=== PATIENT | female | born 1960 | race Caucasian/White ===

== ENCOUNTER 2023-02-24 07:00 | Emergency (ER) | payer OTHER, SELFPAY ==
[2023-02-24] VITALS (7 sets, daily range): BP systolic 128–148; BP diastolic 69–83; PULSE 75–93; RESP 16–22; TEMP 36.2; O2SAT 97–100
--- NOTE | ~2023-02-24 | CT_ITS ---
EXAMINATION: CTA chest PE protocol DATE: 02/24/2023 08:25 INDICATION: Right-sided chest pain TECHNIQUE: Computed tomography (CT) pulmonary angiogram of the chest was performed with 100 mL Omnipa que-350 intravenous contrast. Additional 3D reconstructions utilizing coronal maximum intensity proje ction (MIP) were performed. Automated exposure control and iterative reconstruction technique were em ployed. The dose-length product was 388.95 mGy-cm. COMPARISON: None FINDINGS: Excellent contrast opacification of the pulmonary arteries mild streak and respiratory artifact which does not significantly limit evaluation. No pulmonary embolism. Linear band of discoid atelectasis/s carring at the right apex. No pneumonia, pulmonary edema, pleural effusion or pneumothorax. Heart siz e is normal. Small amount of atherosclerotic coronary artery calcification along the left anterior de scending coronary artery. No pericardial effusion. Thoracic aorta is normal in caliber with no dissec tion. No pathologically enlarged thoracic lymphadenopathy. There are multiple contrast opacified yola ateral vessels extending from the right upper arm into the anterior and posterior chest Wo bypass in the presumably occluded left subclavian artery which reconstitutes at the level of the left brachioce phalic vein. Small sliding-type hiatal hernia. Cholecystectomy clips the gallbladder fossa. Bones are unremarkable. IMPRESSION: 1. No pulmonary embolism or other acute cardiopulmonary disease. 2. Small sliding-type hiatal hernia. 3. 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 IMPRESSION: 1. No pulmonary embolism or other acute cardiopulmonary disease. 2. Small sliding-type hiatal hernia. 3. 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
--- NOTE | ~2023-02-24 | XR_ITS ---
Portable chest x-ray Comparison: 07/16/2014 Clinical History: Chest pain Findings: Lungs are clear, without focal consolidation or pleural effusion. Cardiomediastinal silho uette is stable. Scattered surgical clips overlie the chest. Bones and soft tissues are unremarkable. Impression: Clear lungs. Reviewed, dictated and finalized at location . Impression: Clear lungs.
--- NOTE | 2023-02-24 07:37 | ECG_ITS ---
Measurements Intervals [place] Rate: 93 P: 19 ID: 122 QRS: 21 QRSD: 96 T: 17 QT: 341 QTc: 425 Interpretive Statements SINUS RHYTHM BASELINE ARTIFACT NONSPECIFIC T-WAVE ABNORMALITY BORDERLINE ECG NO PREVIOUS ECG AVAILABLE FOR COMPARISON Electronically Signed On 02-25-2023 17:08:17 CDT by Jcarlos Murray M.D.
--- NOTE | 2023-02-24 07:46 | ED.CHESTPAIN ---
HPI - Chest Pain General Chief Complaint: Chest Pain Stated Complaint: pain to right breast Time Seen by Provider: 02/24/23 07:25 History of Present Illness HPI narrative: 62-year-old female presented the emergency department for evaluation of worsening right-sided chest pain. Patient reports he does have a history of breast cancer twice starting in 2001. Patient also has current lymphoma. Patient follows up at [facility]. Patient does report prior history of PE. Patient states pain started last night and is focused on the right chest. Pain is worse with inspiration. Patient follows up with Dr HADDAD Related Data Home Medications Medication Instructions Recorded Confirmed letrozole 2.5 mg tablet 2.5 mg PO DAILY 07/18/20 12/02/22 loratadine 10 mg tablet (Claritin) 10 mg PO DAILY 07/18/20 12/02/22 loteprednol etabonate 0.5 % eye 1 applic EACH EYE QID 07/18/20 12/02/22 ointment (Lotemax) zoledronic acid 4 mg/5 mL 4 mg IV ONCE 07/18/20 12/02/22 intravenous solution palbociclib 75 mg capsule (Ibrance) 75 mg PO DAILY 11/06/21 12/02/22 Allergies Allergy/AdvReac Type Severity Reaction Status Date / Time cefdinir Allergy Unknown Unknown Verified 02/24/23 08:11 moxifloxacin Allergy Unknown Unknown Verified 02/24/23 08:11 Review of Systems Review of Systems: All systems reviewed & are unremarkable except as noted in HPI and below PMFSH Past Medical History Medical History (Updated 02/24/23 @ 12:50 by Juan Francisoc Crawford MD) Acute non-recurrent maxillary sinusitis BMI 31.0-31.9,adult BMI 31.0-31.9,adult BMI 32.0-32.9,adult Breast cancer metastasized to bone Candidiasis of mouth Colon cancer screening COVID-19 virus IgG antibody detected Erythema nodosum Inflammation of eyelid, left Muscle cramps Obesity (BMI 30.0-34.9) Otitis externa Right shoulder pain UTI (urinary tract infection) Vertigo Family History Family History (Updated 10/11/18 @ 16:14 by DOCTOR UNKNOWN) Mother Hypertension, Onset Age: 85 Father Hypertension, Onset Age: 87 Social History Social History Smoking status: Never smoker Alcohol intake: current Substance use: never Substance use type: does not use Lack of Transportation: No Lack of Food: Sometimes True Current Housing: I Have Housing Concerned About Future Housing: No Difficulty Paying Gas/Electric Bills: No Difficulty Paying for Meds: No Currently Unemployed: No Education: High School Diploma/GED Difficulty w/ Childcare or Family Care: No Exam Narrative: APPEARANCE: Well appearing, no pain, no distress, well-nourished. HEAD: normocephalic, atraumatic. EYES: PERRLA/EOMI, conjunctivae clear. NOSE: Normal no drainage NECK: Supple. No adenopathy, no masses. RESPIRATORY: Airway patent, respirations nonlabored. Clear to auscultation bilaterally, no rales, rhonchi, wheezing. CARDIOVASCULAR: Regular rate and rhythm without murmurs rubs or gallops. ABDOMINAL: Soft, nontender, nondistended, normal bowel sounds MUSCULOSKELETAL: Reproducible chest wall tenderness to palpation on the right. No ecchymosis. No crepitus NEURO: Alert. Cranial nerves II through XII intact. Good gait. Good coordination SKIN: Warm, dry. Normal Color Course Course Emergency Course: 59-year-old female present emergency department for evaluation of right-sided chest wall pain. EKG showed no evidence of acute STEMI. Patient has equal breath sounds bilaterally. CT PE study is being ordered to evaluate for pulmonary embolism. CT was negative for pneumonia or pulmonary embolism. No evidence of pneumothorax. Patient did feel improved with treatment. Suspect musculoskeletal with the underlying etiology for the patient's symptoms. Patient was provided medications for pain control. Vital Signs Vital signs: Vital Signs Temperature 97.1 F L 02/24/23 07:03 Pulse Rate 84 02/24/23 07:03 Respirato
[2023-02-24 07:56] LABS: Basophils Absolute Auto 0.1 K/mm3 (0.0-0.1); Basophils Percent Auto 1.5 % (0.2-1.2); Eosinophils Percent Auto 0.6 % (0-4.4); Hematocrit 39.9 % (37.0-47.0); Hemoglobin 13.3 g/dL (12.0-15.0); Immature Granulocyte Absolute 0.02 K/mm3 (0.00-0.031); Immature Granulocyte Percent A 0.4 % (0-0.5); Lymphocytes Absolute Auto 1.02 K/mm3 (0.9-3.2); Lymphocytes Percent Auto 19.7 % (18.3-44.2); Mean Corpuscular HGB Conc 33.3 g/dl (32-36); Mean Corpuscular Hemoglobin 35.9 pg (26-34); Mean Corpuscular Volume 107.8 fl (80-100); Mean Platelet Volume 9.3 fl (7.4-10.4); Monocytes Absolute Auto 0.6 K/mm3 (0.1-0.6); Monocytes Percent Auto 12.3 % (2.6-8.5); Neutrophils Absolute Auto 3.4 K/mm3 (1.3-6.7); Neutrophils Percent Auto 65.5 % (45.5-73.1); Platelet Count Result 196 k/mm3 (150-375); Red Cell Distribution Width 13.9 % (11.5-14.5); White Blood Count 5.2 K/mm3 (4.5-10.0)
[2023-02-24] MEDS: HYDROmorphone HCL INJ (*CRX) 1 MG/ML SYR 0.5 MG IV PUSH (08:04)
[2023-02-24 08:13] LABS: Estimated CRCL calculation 58 ml/min; Estimated Glomerular Filt Rate > 60
[2023-02-24 08:30] LABS: Alanine Aminotransferase 26 U/L (6-35); Albumin Level 4.5 g/dL (3.5-5.1); Alkaline Phosphatase 68 U/L (38-126); Anion Gap 8 mmol/L (8-16); Aspartate Amino Transferase 35 U/L (14-36); Bilirubin,Total 0.6 mg/dL (0.2-1.3); Blood Urea Nitrogen 16 mg/dL (7-17); Calcium 9.6 mg/dL (8.4-10.2); Carbon Dioxide 29 mmol/L (22-30); Chloride 102 mmol/L (98-107); Estimated CRCL calculation 65 ml/min; Estimated Glomerular Filt Rate > 60; Glucose 116 mg/dL (65-110); Potassium 3.5 mmol/L (3.4-5.0); Sodium 139 mmol/L (137-145)
[2023-02-24 08:42] LABS: Troponin I < 0.012 ng/mL (0.000-0.034)
[2023-02-24] MEDS: KETOROLAC 15 MG/ML VIAL (*BKC) IV PUSH (10:13)
[2023-02-24 11:23] LABS: Troponin I < 0.012 ng/mL (0.000-0.034)
[2023-02-24] MEDS: HYDROcodone/acetaminophen (*CRX) 10-325 MG TABLET 1 TAB PO (13:01)
== END 2023-02-24 13:10 | disposition home or self-care (01) ==
PROVIDERS: Emergency Provider Emergency Medicine; PCP Family Medicine
DX: R07.89 Other chest pain (principal); C85.90 Non-Hodgkin lymphoma, unspecified, unspecified site; Z85.3 Personal history of malignant neoplasm of breast
CPT/HCPCS: 36415; 71045; 71275; 80053; 84484; 85025; 93005; 96374; 96375; 99284; A9270; J1170; J1885; Q9967

== ENCOUNTER 2024-10-21 18:21 | Emergency (ER) | payer MEDICARE, OTHER, SELFPAY ==
--- NOTE | ~2024-10-21 | XR_ITS ---
HISTORY: twist injury, pain lateral ankle/foot COMPARISON: None TECHNIQUE: 3 views of the right foot were performed FINDINGS: The first metatarsophalangeal angle measures 33 degrees, consistent with hallux valgus. Medial deviation of the distal interphalangeal joint of the fourth and fifth toes. Irregular lucency along the proximal shaft of the fifth metatarsal is present suggesting an acute non displaced fracture. The base of the fifth metatarsal is intact. Degenerative disease is noted within the first metatarsophalangeal joint. A small calcaneal spur is noted. Lateral soft tissue swelling is present. IMPRESSION: Acute nondisplaced fracture of the proximal shaft of the fifth metatarsal, as detailed kenyon peguero. Reviewed, dictated and finalized at location A. IMPRESSION: Acute nondisplaced fracture of the proximal shaft of the fifth met atarsal, as detailed above.
--- NOTE | ~2024-10-21 | XR_ITS ---
HISTORY: twist injury, pain lateral ankle/foot COMPARISON: None TECHNIQUE: 3 views of the right ankle were performed FINDINGS: No acute fracture or dislocation. No significant soft tissue swelling. The ankle mortise is preserved. Bone mineralization is age-appropriate. IMPRESSION: No acute fracture or dislocation Reviewed, dictated and finalized at location A.
--- OUTSIDE RECORDS SUMMARY | 2024-10-21 18:23 | XMS_ITS | Referral Summary ---
Author Organization [facility] Address [address] [place] [address] Care Team Providers Care Linux Server Administrator Name Role Phone Avril Tobar MD Unavailable Christiano Rosales MD Unavailable [phone] Shakeel Arora MD Primary Care Provider [phone] Mari Lofton MD Unavailable [phone] Brian Rubi MD Unavailable [phone] Encounters Date Type Department Care Team Description 09/28/2024 Documentation [facility] Oncology [address] [place] [address] Floor 6 [place] [address] Prudence Haskins RMSandy 09/27/2024 Documentation [facility] Oncology [address] [place] [address] Floor 6 [place] [address] Nati Crespo, RN 09/26/2024 Orders Only [facility] Oncology [address] [place] [address] Floor 8 [place] [address] Phyllis Greer RN 09/26/2024 3:00 PM CDT Infusion [facility] - Infusion [address] [place] [address] Floor 5 [place] [address] Malignant neoplasm of right breast in female, estrogen receptor positive, unspecified site of breast (HCC) (Primary Dx); Malignant neoplasm metastatic to bone (HCC) 09/26/2024 1:00 PM CDT Lab [facility] - Lab Collection [address] 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); Malignant neoplasm of female breast, unspecified estrogen receptor status, unspecified laterality, unspecified site of breast (HCC) 08/23/2024 Documentation [facility] Oncology [address] [place] [address] 6 [place] [address] Prudence Haskins RMA 08/23/2024 Orders Only [facility] Oncology [address] [place] [address] 6 [place] [address] Prudence Haskins, YIFAN from Last 3 Months Allergies Active Allergy Reactions Criticality Noted Date Comments Moxifloxacin Rash Medium 06/10/2011 Cephalexin Rash Medium 09/02/2016 Cefdinir Rash Medium 06/10/2011 Medications acetaminophen 500 mg capsule Take 1 capsule (500 mg total) by mouth as needed Active zolpidem (AMBIEN) 10 mg tabletIndication s: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) TK 1 T PO HS PRF INSOMNIA 0 Active zoledronic acid 4 mg recon soln Infuse into a venous catheter every 3 (three) months Active loratadine (CLARITIN) 10 mg tablet Take 1 tablet (10 mg total) by mouth as needed Active lutein 20 mg capsule Take by mouth Active cyclobenzaprine (FLEXERIL) 10 mg tabletIndication s:Muscle Spasm,right chest wall pain/muscle spasm Take 1 tablet (10 mg total) by mouth 2 (two) times a day as needed for muscle spasms 60 tablet 1 3 Active Additional Information Patient not taking.Reported on 06/20/2024 cetirizine (ZyrTEC) 10 mg tablet Take 1 tablet (10 mg total) by mouth daily Active dimenhyDRINATE 25 mg tablet,chewable Take by mouth As needed for dizziness Active ergocalciferol (VITAMIN D) 50,000 unit capsule Take 1 capsule (50,000 Units total) by mouth once a week 12 capsule 3 4 Active palbociclib (IBRANCE) 75 mg tabletIndication s: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 Take 7 days off before starting next cycle (21 days on 7 days off) 21 tablet 11 4 Active letrozole (FEMARA) 2.5 mg tablet Take 1 tablet (2.5 mg total) by mouth daily 90 tablet 3 4 Active ibuprofen 200 mg tab/cap Take 2 tablet/capsule (400 mg total) by mouth daily as needed for pain Active gabapentin (NEURONTIN) 100 mg capsule Take one capsule by mouth at bedtime and gradually increase up to one capsule by mouth three times per day as needed for symptoms. 90 capsule 5 Active al & mag hydroxide with simethicone-diph enhydramine-lido royce (MAGIC MOUTHWASH) suspension [id number] :Chemotherapy-In duced Mucositis Swish and spit 15 mL every 4 (four) hours as needed (mucsitosis) 500 mL 2 5 Active Hospital, Clinic, or Other Facility Administered Medication Ordered Dose Route Frequency Start Date End Date Status sodium chloride 0.9% flush 0.5-20 mLIndications:Maligna nt neoplasm of female breast, unspecified estrogen receptor status, unspecified laterality, unspecified site of breast (HCC) 0.5 - 20 mL IV Every 8 hours scheduled 2020 Active sodium chloride 0.9% flush 0.5-20 mLIndications:Maligna nt neoplasm of female breast, unspecified estrogen receptor status, unspecified laterality, unspecified site of breast (HCC) 0.5 - 20 mL IV As needed 2020 Active Active Problems Problem Noted Date Diagnosed Date Pain of right thigh 11/22/2020 Left hip pain 08/13/2020 Malignant neoplasm metastatic to bone 06/07/2020 Rash 07/27/2018 Assessment & Plan (07/27/2018 4:08 AM CDT): DDx includes erythema nodosum/vasculitis (Rituxan can cause vasculitis rarely) vs Sweet's Syndrome (malignancy associated vs Revlimid (more likely given temporal nature)), vs less likely DRESS (atypical appearance), vs cutaneous manifestation of known disease vs infectious. However given the rash and fever has started after changing to Rituxan and Revlimid I suspect this is likely related. Normal ESR however elevated CRP. Unfortunately no differentiation was performed in the ED making harder to differentiate DRESS and Sweets. -Hold Revlimid/Rituxan for now -Analgesics with PRN oxycodone -Will need biopsies with dermatology consult in the AM and likely steroids however will hold off until biopsy performed to increase yield. -Check vasculitis workup with hepatitis panel, HIV, CARLOTTA, MARCELINO, ANCA, T-Spot -Check LORI level for sarcoidosis (erythema nodosum) -Follow cultures (blood and urine performed in the ED), check fungal serologies (galactomanan, blasto, urine histo) -Start Vancomycin and Augmentin (Rash to cephalosporins however has tolerated PCN and Amoxil in past and Unasyn on critical shortage). Chronic cough 05/19/2018 Chalazion of left eye 04/14/2018 Assessment & Plan (04/14/2018 8:41 AM COLOR ARTIST): Warm compresses, Doxy 100mg BID PO for 1 week, Maxitrol lele at bedtime (QHS) both eyes (OU) for 1 week Warm compress 2-3 times a day 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 04/14/2018 Combined forms of age-related cataract of both e yes 04/14/2018 Assessment & Plan (04/14/2018 8:42 AM COLOR ARTIST): Asymptomatic, monitor Narrow angle glaucoma suspect of both eyes 04/14 Assessment & Plan (04/14/2018 8:43 AM COLOR ARTIST): Warned pt signs and Symptoms of angle closure Large CD both eyes (OU), borderline IOP Consult with Dr Champion 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 Nancy Avila, adjuvant radiation. Right augmentation mammoplasty Multifocal ca T1cN1 ER+, OR+, Her2 negative, lymphatic permeation; AC/Taxol, RT, F[place] 2011 R breast, T3N1, ER+,OR+,Her2 negative, MIB 7%,lymphovascular and perineural invasion Bilateral mastectomies Assessment & Plan (07/27/2018 4:20 AM CDT): Breast cancer diagnosed in 2000. T3N1, ER/OR+, Stage III. AC + Taxol x 4 cycles (total brittney dose 420mg). Disease recurrence in R breast in 2011. Right mastectomy, XRT, Abraxane x 3 cycles, Exemestane x 5 years [id number]. -No evidence of disease -Continue to monitor and outpatient follow up. 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 10/01/2017 Assessment & Plan (07/27/2018 4:19 AM CDT): Followed by Dr. Rosales. Stage IV on diagnosis. Mantle Cell Lymphoma diagnosed by biopsy of ileocecal valve during colonoscopy on 05/29/2011. Initial bone marrow biopsy with low level disease involvement. Treatment History: 06/2011-07/2011 RM-CHOP x 2, OR by PET 09/28/2011 BEAM Autologous SCT, CR by PET 12/2011 Rituxan x 2 doses 09/08/2017 CT scan with cecal mass and ileocolic adenopathy 09/29/2017-04/27/18 ABT-199 + Ibrutinib x 6 on 04/27/18-07/11/18 Ibrutinib, OR, dc'd due to toxicities 07/13/18- Rituxan/Revlimid -Recent PET CT 06/22/18 1. Stable to mildly decreased uptake of mediastinal lymphadenopathy with resolution of previous mildly FDG avid periportal adenopathy; as this is stable compared to prior study is favored to represent pseudo- progression given immune therapy. If these nodes did represent lymphoma, it would be a 5 PS = 4. Recommend continued attention on follow-up. 2. Mildly increased FDG uptake corresponding to stable skin thickening in both thighs is likely inflammatory. This could be further evaluated with direct visualization if clinically indicated. -Hold Rituxan and Revlimid for now given fever and rash and can discuss today with BMT attending. Due to get Rituxan today (dose x3/4). -Continue ASA 325mg for prophylaxis -Pancytopenia expected from chemotherapy and disease: Transfuse per BMT protocol -DVT PPX: Lovenox SQ Basal cell carcinoma of anterior chest 6 Overview (12/06/2017): Overview: 2014 DVT of upper extremity (deep vein thrombosis) Overview (12/06/2017): Overview: Duplex 04/21/12: (+) DVT in left subclavian vein, axillary, brachial, basilic Port removed in clinic 04/21/12 by Rachael Chavez 60 BID Adenocarcinoma of cecum 06/10/2011 Genetic testing 02/06/2011 Overview (12/06/2017): Overview: neg brca Resolved Problems Problem Noted Date Diagnosed Date Resolved Date Fever 07/27/2018 07/29/2018 Assessment & Plan (07/27/2018 4:13 AM CDT): Afebrile since in hospital without ABX. Fever at home to 100.5F however has been afebrile over past 24 hours due to APAP at home. DDx includes drug (Revlimid, Rituxan), Disease (Mantle Cell), Inflammation and Rash as above (erythema nodosum, sweets, dress, etc), vs less likely infectious. CXR and flu swab negative. UA unremarkable except for microscopic hematuria. Lactate normal. -Blood cultures and urine culture performed in ED - follow -Obtain fungal serologies as above espescially in setting of rash -T-spot -Hepatitis Panel, HIV, MARCELINO, ANCA, CARLOTTA, LORI level -Check RVP -Start Vancomycin and Augmentin (Rash to cephalosporins however has tolerated PCN and Amoxil in past and Unasyn on critical shortage). Anemia 05/01/2012 11/23/2018 Dehydration 05/01/2012 03/25/2018 Elevated liver function tests 05/01/2012 11/23/2018 Neutropenic fever 05/01/2012 11/23/2018 Immunizations Immunization Administration Dates Next Due Influenza, Quadrivalent, Roselyn l Culture-based MDCK, Preservative Free, Antibiotic Free, Intramuscular 02/12/2021,02/15/2019,03/30/2018,03/10 Influenza, Trivalent, Preser vative Free, Intramuscular 03/10/2017,03/04/2016,03/06/2015,03/22 Moderna SARS-CoV-2 Monovalen t Vaccination (12+ YRS) 08/01/2020,07/04/2020 Pneumococcal Polysaccharide PPV23 05/05/2012 Tdap 05/05/2012 Social History Tobacco Use Types Packs/Day Years Used Date Smoking Tobacco: Never Passive Smoke Exposure: Never Smokeless Tobacco: Never Tobacco Cessation:Counseling Given: Not Answered Alcohol Use Standard Drinks/Week Comments Not Currently 0 (1 standard drink = 0.6 oz pur e alcohol) social AUDIT-C Answer Date Recorded Q1: How often do you have a drink containing alc ohol? 2-4 times a month 04/17/2024 Q2: How many drinks containi ng alcohol do you have on a typical day when you are drinking? 1 or 2 04/17/2024 Frequency of Binge Drinking Not on file 01/2024 Comments No Sex and Gender Information Value Date Recorded Sex Assigned at Not on file Legal Sex Female 2:43 AM COLOR ARTIST Gender Identity Not on file Sexual Orientation Not on file Last Filed Vital Signs Vital Sign Reading Time Taken Comments Blood Pressure 137/76 09/26/2024 1:54 PM CDT Pulse 85 09/26/2024 1:54 PM CDT Temperature 36.7 C (98.1 F) 09/26/2024 1:54 PM CDT Respiratory Rate 18 09/26/2024 1:54 PM CDT Oxygen Saturation 98% 09/26/2024 1:54 PM CDT Inhaled Oxygen Concentration - - Weight 81.2 kg (179 lb) 09/26/2024 1:54 PM CDT Height 162 cm (5' 3.78) 06/20/2024 7:41 AM COLOR ARTIST Body Mass Index 30.94 06/20/2024 7:41 AM COLOR ARTIST Plan of Treatment Not on file Procedures Procedure Name Priority Date/Time Associated Diagnosis Comments EGFR Routine 09/26/2024 12:26 PM CDT 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) DIFFERENTIAL AUTO Routine 09/26/2024 12: 26 PM CDT 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) VITAMIN D 25 HYDROXY Routine 09/26/2024 12:26 PM CDT Malignant neoplasm of right breast in female, estrogen receptor positive, unspecified site of breast (HCC) BETA 2 MICROGLOBULIN SERUM Routine 09/26/2024 12:26 PM CDT 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) CBC WITH AUTO DIFFERENTIAL Routine 09/26/2024 12:26 PM CDT 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) COMPREHENSIVE METABOLIC PANEL Routine 09/26/2024 12:26 PM CDT 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) LACTATE DEHYDROGENASE Routine 09/26/2024 12:26 PM CDT 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 73 m2 Comment: Interpretive Data Reference Interval Normal >/= 90 mL/min/1.73m2 Mildly decreased* 60 - 89 mL/min/1.73m2 Mildly to moderately decreased 45 - 59 mL/min/1.73m2 Moderately to severely decreased 30 - 44 mL/min/1.73m2 Severely decreased 15 - 29 mL/min/1.73m2 Kidney Failure < 15 mL/min/1.73m2 *Relative to young adult level Estimated glomerular filtration rate is determined by the 2020 CKD-EPI equation recommended by the National Kid[employer] (A Unifying Approach to GFR Estimation: Recommendations of the NKF-ASK Task Force on Reassessing the Inclusion of Race in Diagnosing Kidney Disease, JASN 2020). The CKD-EPI equation should not be used for patients with unstable renal function and has not been validated in children and those over 70. Current interpretive data was last reviewed 2021. Blood 09/26/2024 12:2 6 PM CDT 09/26/2024 12:35 PM CDT Christiano Rosales MD LAB BLOOD ORDERABLES Final R esult [facility] Department of Laboratories [place], [place] [id number] * (ABNORMAL) Differential, auto (09/26/2024 12:26 PM CDT) Pathologist [facility] Neutrophil abs 1.11(L) 1.50 - 6.50 K/cumm Comment:Testing performed by : [facility] Heme Lab, [address] [place] [phone] Lymphocyte abs 0.83 0.80 - 3.30 K/cumm JENNIFER CASSIDY Comment:Testing performed by : [facility][Note 3] Heme Lab, [address] [place] [phone] Monocyte abs 0.25 0.20 - 0.80 K/cumm [facility] Comment:Testing performed by : [facility][Note 3] Heme Lab, [address] [place] [phone] Eosinophil abs 0.01 0.00 - 0.50 K/cumm [facility] Comment:Testing performed by : [facility][Note 3] Heme Lab, [address] [place] [phone] Basophil abs 0.08 0.00 - 0.10 K/cumm [facility] Comment:Testing performed by : [facility][Note 3] Heme Lab, [address] [place] [phone] Neutrophil pct 48.8 % [facility] Comment: Interpretive Data Percent cell count reference ranges are not reported, since discordance with absolute values may lead to misinterpretation of CBC data. Current Interpretive Data was last revised on 2017. Testing performed by: [facility] Lab, [address] [place] [phone] Lymphocyte pct 36.4 % [facility] Comment: Interpretive Data Percent cell count reference ranges are not reported, since discordance with absolute values may lead to misinterpretation of CBC data. Current Interpretive Data was last revised on 2017. Testing performed by: [facility] Lab, [address] [place] [phone] Monocyte pct 10.9 % [facility] Comment: Interpretive Data Percent cell count reference ranges are not reported, since discordance with absolute values may lead to misinterpretation of CBC data. Current Interpretive Data was last revised on 2017. Testing performed by: [facility][Note 3] Heme Lab, [address] [place] [phone] Eosinophil pct 0.6 % [facility] Comment: Interpretive Data Percent cell count reference ranges are not reported, since discordance with absolute values may lead to misinterpretation of CBC data. Current Interpretive Data was last revised on 2017. Testing performed by: [facility][Note 3] Heme Lab, [address] [place] [phone] Basophil pct 3.3 % [facility] Comment: Interpretive Data Percent cell count reference ranges are not reported, since discordance with absolute values may lead to misinterpretation of CBC data. Current Interpretive Data was last revised on 2017. Testing performed by: [facility][Note 3] Heme Lab, [address] [place] [address] Blood 09/26/2024 12:2 6 PM CDT 09/26/2024 12:30 PM CDT Christiano Rosales MD LAB BLOOD ORDERABLES Final R esult [facility] Department [place] [address] * (ABNORMAL) CBC with auto differential (09/26/2024 12:26 PM CDT) WBC 2.27(L) 3.80 - 9.90 K/cumm Comment:Testing performed by : [facility][Note 3] Heme Lab, [address] [place] [address] Hgb 13.3 11.9 - 15.5 g/dL CERARCHANA CASSIDY Comment:Testing performed by : [facility][Note 3] Heme Lab, [address] [place] [address] Hct 38.6 35.6 - 45.5 % CERARCHANA [facility] Comment:Testing performed by : [facility][Note 3] Heme Lab, [address] [place] [address] Plt 193 150 - 400 K/cumm CERARCHANA [facility]J Comment:Testing performed by : [facility][Note 3] Heme Lab, [address] [place] [address] MPV 7.3 6.8 - 10.4 fL CERARCHANA [facility]J Comment:Testing performed by : [facility][Note 3] Heme Lab, [address] [place] [address] RBC 3.68(L) 3.90 - 5.20 M/cumm CERARCHANA [facility]J Comment:Testing performed by : [facility][Note 3] Heme Lab, [address] [place] [address] MCV 104.9(H) 81.3 - 96.4 fL CERARCHANA BJ Comment:Testing performed by : [facility][Note 3] Heme Lab, [address] [place] [address] MCH 36.1(H) 27.1 - 33.3 pg JENNIFER [facility] Comment:Testing performed by : [facility][Note 3] Heme Lab, [address] [place] [address] MCHC 34.4 32.3 - 35.7 g/dL JENNIFER [facility] Comment:Testing performed by : [facility][Note 3] Heme Lab, [address] [place] [address] RDW CV 14.1 11.1 - 14.9 % JENNIFER [facility] Comment:Testing performed by : [facility][Note 3] Heme Lab, [address] [place] [address] NRBC abs 0.00 0.00 - 0.01 K/cumm JENNIFER [facility] Comment:Testing performed by : [facility][Note 3] Heme Lab, [address] [place] [address] Blood 09/26/2024 12:2 6 PM CDT 09/26/2024 12:30 PM CDT Christiano Rosales MD LAB BLOOD ORDERABLES Final R esult Performing Organization Address City/[facility] Co de Phone Number [facility] Department [place] [place] [address] * (ABNORMAL) Cancer antigen 15-3 (09/26/2024 12:26 PM CDT) CA 15-3 ag 39.0(H) <=25.0 units/mL Comment: Interpretive Data The Prabhakar CA 15-3 assay procedure was used. Results from different manufacturers or methods may not be comparable. Serial testing should be performed using the same method. Blood 09/26/2024 12:2 6 PM CDT 09/26/2024 12:56 PM CDT Nati Ocampo NP LAB BLOOD ORDERABLES Final Result Performing Organization Address City/[facility] Co de Phone Number [facility] Department [place] [address] * Vitamin D 25 hydroxy (09/26/2024 12:26 PM CDT) Pathologist [facility] Vitamin D 25-OH 37 30 - 80 ng/mL Blood 09/26/2024 12:2 6 PM CDT 09/26/2024 12:35 PM CDT Nati Ocampo SUPERVISOR [employer] LAB BLOOD ORDERABLES Final Result Performing Organization Address [facility] Co de Phone Number JENNIFER [facility] Department [place] [address] * Lactate dehydrogenase (LD) (09/26/2024 12:26 PM CDT) [facility] Lactate dehydrogenase (LDH) 242 100 - 250 Units/L Blood 09/26/2024 12:2 6 PM CDT 09/26/2024 12:35 PM CDT Christiano Rosales MD LAB BLOOD ORDERABLES Final R esult Performing Organization Address [facility] de Phone Number JENNIFER [facility] [place] [address] * CEA (09/26/2024 12:26 PM CDT) [facility] CEA 2.0 <=5.0 ng/mL Comment: Interpretive Data: Reference Range: Non-Smokers: 0.0 5.0 ng/mL Smokers: 0.0 6.5 ng/mL The Prabhakar CEA assay procedure was used. Results from different manufacturers or methods may not be comparable. Serial testing should be performed using the same method. Current interpretive data was last revised 2021. Blood 09/26/2024 12:2 6 PM CDT 09/26/2024 12:56 PM CDT Nati Ocampo SUPERVISOR [employer] LAB BLOOD ORDERABLES Final Result Performing Organization Address [facility] Co de Phone Number [facility] [place] [address] * Beta 2 microglobulin, serum (09/26/2024 12:26 PM CDT) Pathologist [facility] Beta 2 Microglobulin, Serum 1.20 1.00 - 2.50 mg/L Comment: Interpretive Data The Prabhakar Beta-2 microglobulin assay procedure was used. Results from different manufacturers or methods may not be comparable. Serial testing should be performed using the same method. Blood 09/26/2024 12:2 6 PM CDT 09/26/2024 12:56 PM CDT Christiano Rosales MD LAB BLOOD ORDERABLES Final R esult [facility] Department [place] [address] * Comprehensive metabolic panel (09/26/2024 12:26 PM CDT) Pathologist [facility] Sodium 141 135 - 145 mmol/L Potassium, pl 3.7 3.3 - 4.9 mmol/L [facility] Chloride 103 97 - 110 mmol/L [facility] CO2 29 22 - 32 mmol/L [facility] Anion gap 9 2 - 15 mmol/L [facility] BUN 15 6 - 25 mg/dL [facility] Creatinine 0.98 0.60 - 1.10 mg/dL [facility] Glucose 106 70 - 199 mg/dL [facility] Comment: Interpretive Data Fasting glucose >/= 126 mg/dl is diagnostic for diabetes. Fasting is defined as no caloric intake for at least 8 hours. Fasting glucose between 100 mg/dl to 125 mg/dl is diagnostic of prediabetes. In a patient with classic symptoms of hyperglycemia or hyperglycemic crisis, a random glucose >/= 200 mg/dl is diagnostic for diabetes. In the absence of unequivocal hyperglycemia, results should be confirmed by repeat testing. The classification and Diagnosis of Diabetes Diabetes Care 2021; 46: S19-S40. Current interpretive data was last revised 2022. Calcium 9.6 8.5 - 10.3 mg/dL [facility] Bilirubin, total 0.4 0.1 - 1.2 mg/dL [facility] Protein, pl 7.6 6.5 - 8.5 g/dL [facility] Albumin 4.7 3.5 - 5.0 g/dL [facility] Alk phos 65 40 - 130 Units/L [facility] ALT 17 7 - 45 Units/L [facility] AST 22 10 - 45 Units/L [facility] Blood 09/26/2024 12:2 6 PM CDT 09/26/2024 12:35 PM CDT us Christiano Rosales MD LAB BLOOD ORDERABLES Final R esult [facility] Department [place] [address] * COLONOSCOPY (04/16/2020 10:07 AM COLOR ARTIST) Anatomical Region Laterality Modality Other Narrative Procedure Note Tony Peña MD - 04/16/2020 10:07 AM CST [facility] Patient Name: Ella Herrera Procedure Date: 04/16/2020 10:07 AM Date of : 1960 Admit Type: Outpatient Age: 59 Gender: Female Attending MD: Tony Peña M.D. Room: [facility] ENDOSCOPY ROOM 3 Note Status: Finalized Procedure: Colonoscopy Indications: Last colonoscopy: 2011, Mantle cell lymphoma Referring MD: Christiano Rosales M.D. Providers: Tony Peña M.D., Daniel Rider M.D. Medicines: Monitored Anesthesia Care Complications: No immediate complications. Estimated Blood Loss: Estimated blood loss was minimal. Procedure: Pre-Anesthesia Assessment: - Immediately prior to administration ofmedications, the patient was re-assessed for adequacy to receive sedatives. - The risks and benefits of the procedure and the sedation options and risks were discussed with the patient. All questions were answered and informed consent was obtained. The benefits, risks and alternatives of theprocedure and sedation were discussed and informed consent was obtained. All questions were answered. Please referto the signed informed consent document in the medical record. The scope was passed under direct vision.The Endoscope was introduced through the anus andadvanced to 5 cm into the ileum. The colonoscopy wasperformed without difficulty. The patient tolerated theprocedure well. The quality of the bowel preparation was good. The quality of the bowel preparation was evaluated using the BBPS ([place] Bowel Preparation Scale) with scores of: Right Colon = 2 (minor amount of residual staining, small fragments of stool and/or opaque liquid, but mucosa seen well), Transverse Colon = 2 (minor amount of residual staining, small fragmentsof stool and/or opaque liquid, but mucosa seen well)and Left Colon = 2 (minor amount of residual staining, small fragments of stool and/or opaque liquid, but mucosa seen well). The total BBPS score equals 6.The quality of the bowel preparation was good. The bowel preparation used was polyethylene glycol (PEG).Bowel prep was administered using a split dose. Findings: A 6 mm polyp was found in the transverse colon. The polyp wassessile. The polyp was removed with a cold snare. Resection and retrieval were complete. A few small-mouthed diverticula were found in the sigmoid colon. Non-bleeding internal hemorrhoids were found during retroflexion. The terminal ileum appeared normal. Impression: - One 6 mm polyp in the transverse colon, removedwith a cold snare. Resected and retrieved. - Diverticulosis in the sigmoid colon. - Non-bleeding internal hemorrhoids. - The examined portion of the ileum was normal. Recommendation: - Repeat colonoscopy in 5 years for surveillance. - Return to referring physician as previouslyscheduled. - A polyp or polyps were removed during your colonoscopy today. After the pathology result of the polyp(s) is reviewed, the doctor who performed your colonoscopy will recommend follow-up colonoscopy toyou based on current guidelines by gastroenterology societies: - If only small hyperplastic polyps from the rectumor sigmoid were removed, repeat the colonoscopy in 10 years. - If 1 or 2 polyps less than 1 cm in size areadenomas, repeat the colonoscopy in 5 years. - If 3 or more polyps are adenomas, repeat the colonoscopy in 3 years. - If there are 10 or more adenomas, repeat the colonoscopy in 1 year. - If any polyp is 10 mm or greater in size, hasvillous histology or high grade dysplasia, repeat the colonoscopy in 3 years. - If a polyp greater than 2 cm was removed with a piecemeal technique, repeat the colonoscopy in 6months to be certain that there is no residual polyp. - Sessile serrated polyps are treated like adenomasfor surveillance purposes. Attending Participation: I personally performed the entire procedure. I was present and participated during the entire procedure, including non-keyportions. Electronically signed by Tony Peña MD Tony Peña M.D. 04/16/2020 10:40:13 AM . Number of Addenda: 0 Note Initiated On: 04/16/2020 10:07 AM Recognized by the [place] [employer] for promoting quality in endoscopy us Tony Peña MD ENDOSCOPY PROCEDURES Fin al Result from Last 3 Months or Most Recently Relevant to Health Maintenance Insurance MEDICARE [facility] ANTHEM ACCESS CHOICE [facility] CHOICE PLUS MEDICARE [facility] Address: [address] [address] [place] [address] [facility] Advance Directives For more information, please contact: [phone] * Full Code (Latest Code Status on File) Date Activated Date Inactivated Comments 2020 11:25 AM 04/27/2020 5:00 AM * Full Code Date Activated Date Inactivated Comments 04/16/2020 9:42 AM 04/16/2020 3:34 PM * Full Code Date Activated Date Inactivated Comments 07/27/2018 2:25 AM 07/29/2018 9:03 PM Care Teams Linux Server Administrator Relationship Specialty Start Date End Date Shakeel Arora MD [address] [address] PCP - General Family Medicine 07/27/19 Avril Tobar MD Referring Physician Dermatology 03/03/19 Christiano Rosales MD [address] [address] Medical Oncologist/Data Modeling Architect Medical Oncology 03/03/19 Mari Lofton MD [address] [address] Medical Oncologist/Data Modeling Architect Medical Oncology 07/02/20 Brian Rubi MD [address] [address] Consulting Physician Diagnostic Radiology 07/03/20
--- OUTSIDE RECORDS SUMMARY | 2024-10-21 18:23 | XMS_ITS | Encounter Summary ---
Author Organization [facility] Address [address] [place] [address] Phone Care Team Providers Care Quality Auditor Name Role Phone Shakeel Arora MD Primary Care Provider [phone] Christiano Rosales MD Primary Care Provider [phone] Shakeel Arora MD Primary Care Provider [phone] Christiano Rosales MD Primary Care Provider +[phone] Shakeel Arora MD Primary Care Provider [phone] Christiano Rosales MD Primary Care Provider +[phone] Shakeel Arora MD Primary Care Provider [phone] Christiano Rosales MD Primary Care Provider +[phone] Shakeel Arora MD Primary Care Provider [phone] Shakeel Arora MD Primary Care Provider +[phone] Christiano Rosales MD Primary Care Provider +[phone] Shakeel Arora MD Primary Care Provider [phone] Christiano Rosales MD Primary Care Provider +[phone] Shakeel Arora MD Primary Care Provider [phone] Christiano Rosales MD Primary Care Provider +[phone] Christiano Rosales MD Primary Care Provider [phone] Shakeel Arora MD Primary Care Provider [phone] Christiano Rosales MD Primary Care Provider +[phone] Shakeel Arora MD Primary Care Provider [phone] Shakeel Arora MD Primary Care Provider [phone] Christiano Rosales MD Primary Care Provider +[phone] Shakeel Arora MD Primary Care Provider [phone] Christiano Rosales MD Primary Care Provider +[phone] Shakeel Arora MD Primary Care Provider [phone] Avril Tobar MD Unavailable [phone] Christiano Rosales MD Unavailable [phone] Shakeel Arora MD Primary Care Provider [phone] Mari Lofton MD Unavailable + [phone] CyriBrian mares MD Unavailable [phone] Encounter Details Date Type Department Care Team (Latest Contact Info) Description 02/06/2011 Orders Only [facility] Scanning, Provider Social History Tobacco Use Types Packs/Day Years Used Date Smoking Tobacco: Never Assessed Comments Unknown Sex and Gender Information Value Date Recorded Sex Assigned at Not on file 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 Gender Identity Not on file Sexual Orientation Not on file documented as of this encounter Plan of Treatment Not on file documented as of this encounter Procedures Procedure Name Priority Date/Time Associated Diagnosis Comments SCAN - LABS 02/06/2011 documented in this encounter Results * SCAN - LABS (02/06/2011) us Provider Scanning Edited Result - Final documented in this encounter Visit Diagnoses Not on filedocumented in this encounter Care Teams Quality Auditor Relationship Specialty Start Date End Date Shakeel Arora MD [address] [address] PCP - General 08/26/16 08/31/16 Christiano Rosales MD [address] [address] PCP - General 09/01/16 09/01/16 Shakeel Arora MD [address] [address] PCP - General 09/02/16 09/02/16 [place] [address] [place] [address] PCP - General 09/03/16 09/16/16 Shakeel Arora MD [facility] [address] [address] PCP - General 09/17/16 12/01/16 [place] [address] [place] [address] PCP - General 12/02/16 03/09/17 Shakeel Arora MD [address] [address] PCP - General 03/10/17 06/08/17 Christiano Rosales MD [address] [address] PCP - General 06/09/17 09/05/17 Shakeel Arora MD [address] [address] PCP - General 09/06/17 09/07/17 Shakeel Arora MD [address] [address] PCP - General 09/08/17 09/08/17 Christiano Rosales MD [address] [address] PCP - General 09/09/17 09/09/17 Shakeel Arora MD [address] [address] PCP - General 09/10/17 09/13/17 Christiano Rosales MD [address] [address] PCP - General 09/14/17 09/14/17 Shakeel Arora MD [address] [address] PCP - General 09/15/17 09/21/17 Christiano Rosales MD [address] [address] PCP - General 09/22/17 09/22/17 Christiano Rosales MD [address] [address] PCP - General 09/23/17 09/24/17 Shakeel Arora MD [address] [address] PCP - General 09/25/17 09/26/17 Christiano Rosales MD [address] [address] PCP - General 09/27/17 09/27/17 Shakeel Arora MD [address] [address] PCP - General 09/28/17 09/28/17 Shakeel Arora MD [address] [address] PCP - General 09/29/17 09/29/17 Christiano Rosales MD [address] [address] PCP - General 09/30/17 09/30/17 Shakeel Arora MD [address] [address] PCP - General 10/01/17 10/01/17 Christiano Rosales MD [address] [address] PCP - General 10/02/17 10/05/17 Shakeel Arora MD [address] [address] PCP - General 10/06/17 07/26/19 Shakeel Arora MD [address] [address] PCP - General Family Medicine 07/27/19 Avril Tobar MD [address] [address] Referring Physician Dermatology 03/03/19 Christiano Rosales MD [address] [address] Medical Oncologist/Lead Application Architect Medical Oncology 03/03/19 Mari Lofton MD [address] [address] Medical Oncologist/Lead Application Architect Medical Oncology 07/02/20 Brian Rubi MD [address] [address] Consulting Physician Diagnostic Radiology 07/03/20 documented as of this encounter
--- OUTSIDE RECORDS SUMMARY | 2024-10-21 18:23 | XMS_ITS | Encounter Summary ---
Author Organization [facility] Address [address] [place] [address] Phone Care Team Providers Care Laundry Operator Wash Room Name Role Phone Avril Tobar MD Unavailable [phone] Christiano Rosales MD Unavailable [phone] Shakeel Arora MD Primary Care Provider [phone] Mari Lofton MD Unavailable [phone] Brian Rubi MD Unavailable [phone] Encounter Details Date Type Department Care Team (Late st Contact Info) Description 01/04/2024 Social Work [facility] Oncology [address] 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 Gender Identity Not on file Sexual Orientation Not on file documented as of this encounter Plan of Treatment Not on file documented as of this encounter Visit Diagnoses Not on filedocumented in this encounter Care Teams Laundry Operator Wash Room Relationship Specialty Start Date End Date Shakeel Arora MD [address] [address] PCP - General Family Medicine 07/27/19 Avril Tobar MD Referring Physician Dermatology 03/03/19 Christiano Rosales MD [address] [address] Medical Oncologist/Manager Personnel Selection Medical Oncology 03/03/19 Mari Lofton MD [address] [address] Medical Oncologist/Manager Personnel Selection Medical Oncology 07/02/20 Brian Rubi MD [address] [address] Consulting Physician Diagnostic Radiology 07/03/20 documented as of this encounter
--- OUTSIDE RECORDS SUMMARY | 2024-10-21 18:23 | XMS_ITS | Continuity of Care Document ---
Author Organization [facility] Address [address] [place] [address] [address] [place] [address] Phone Care Team Providers Care Telecom Specialist Name Role Phone Sanchez OD, Jose Unavailable Unavailable Procedures Procedure Date Office/outpatient Visit, Est Remove Foreign Body From Eye Advance Directives Directive Yes / No Effective Date File Name No Information Encounters Encounter Description Practice Location Reason(s) For Visit Diagnoses Date Provider Providers Copied on Encounter Office/outpat ient Visit, Est [facility], [address] [place] [address] [address], [place], [place], [id number], tel:[phone] [facility] No Information Jul-0 4-201 0 Sanchez OD Jose. [address] , [address], [place], [place], [facility], [place]. tel:[phone] [facility], [address] [place] [address] [address], [place], [place], [id number], tel:[phone] [facility] No Information 7-201 0 Sanchez OD Jose. [address] , [address], [place], [address], [place]. tel:[phone] Family History Family Member Type Diagnosis Age At Onset No Information Payers Payer name Insurance type Covered green party ID Authorhirama rito(s) [facility] CI [id number] Social History Type Description Quantity Date Captured Comments Sex Female Smoking Status No Information Chief Complaint And Reason For Visit No Information Reason For Referral Reason For Referral No Information History Of Present Illness Encounter Date Complaint History Of Prese nt Illness No Information Functional Status Date Functional Assessmen t No Information Instructions Date Instruction Additional Infor mation No Information Assessments Type Assessment Date No Information Patient Care Teams Name Effective Dates (start - stop) Status Members No Information
--- OUTSIDE RECORDS SUMMARY | 2024-10-21 18:23 | XMS_ITS | Clinical Summary ---
Author Organization [facility] Address [address] [place] [address] Phone Care Team Providers Care Multimedia Developer Name Role Phone Shakeel Arora MD Primary Care Provider [phone] Allergies Active Allergy Reactions Criticality Noted Date Comments Cefdinir Rash Low 01/15/2009 Moxifloxacin Rash Low 01/15/2009 Medications aspirin (BULL) 325 mg tablet Take 325 mg by mouth daily. Active exemestane (AROMASIN) 25 mg Tablet TAKE 1 TABLET DAILY AFTER BREAKFAST 90 Tablet 3 7 Active Active Problems Patient Care Coordination No te Formatting of this note migh t be different from the original. Primary Care: Shakeel Arora MD Referring Provider: Glenis Lara MD [address] [place] [address] Other: Problem Noted Date Diagnosed Date Mass of chest wall, right 09/09/2016 Overview (09/09/2016): 3 weeks; tender Basal cell carcinoma of anterior chest 6 Overview (09/11/2015): 2015 Dehydration 05/01/2012 Elevated liver function tests 05/01/2012 Anemia 05/01/2012 Neutropenic fever 05/01/2012 DVT of upper extremity (deep vein thrombosis) Overview (04/21/2012): Duplex 04/21/12: (+) DVT in left subclavian vein, axillary, brachial, basilic Port removed in clinic 04/21/12 by Rachael Chavez 60 BID Mantle cell lymphoma 02/13/2012 Overview (03/21/2012): [facility] 2011 Supriya Thorpe, R-m-[facility] x 2 Stem cell transplant Jana Wagoner : BEAM chemotherapy without RT; recent restaging normal Genetic testing 02/06/2011 Overview (02/17/2011): neg brca Malignant neoplasm of female breast Overview (03/21/2012): age 39, Left mastectomy for multifocal disease stage IIa, left breast reconstruction, Dr. Nancy Avila, adjuvant radiation. Right augmentation mammoplasty Multifocal ca T1cN1 ER+, OH+, Her2 negative, lymphatic permeation; AC/Taxol, RT, [facility] 2011 R breast, T3N1, ER+,OH+,Her2 negative, MIB 7%,lymphovascular and perineural invasion Bilateral mastectomies Benign tumor of bladder Hay fever Immunizations Immunization Administration Dates Next Due (ADACEL/BOOSTRIX)(10 YR UP) TDAP VACCINE, 0.5ML, IM 05/05/2012 (PNEUMOVAX 23)(50 YRS UP) PN EUMOCOCCAL POLYSACCHARIDE (PPV23) 0.5 ML, IM 05/05/2012 Influenza Vaccine Split 3+ Yrs PF IM 03/22/2014 Family History Medical History Relation Name Comments Other Father diabetes Breast Cancer Maternal Grandmother age 73 Breast Cancer Other maternal great aunt Other Paternal Cousin diabetes Relation Name Status Comments Father Alive Maternal Grandmother Mother Alive Other Paternal Cousin Social History Tobacco Use Types Packs/Day Years Used Date Smoking Tobacco: Never Smokeless Tobacco: Never Tobacco Cessation:Counseling Given: No Alcohol Use Standard Drinks/Week Comments Yes 0 (1 standard drink = 0.6 oz pur e alcohol) rarely Comments No Sex and Gender Information Value Date Recorded Sex Assigned at Not on file Legal Sex Female 5:41 AM EVALUATION SPECIALIST Gender Identity Not on file Sexual Orientation Not on file Occupation Industry Job Start Date Job End Date Not on file Not on file Not on file Not on file Not on file Not on file Not on file Not on file Last Filed Vital Signs Vital Sign Reading Time Taken Comments Blood Pressure 120/77 03/31/2017 8:02 AM EVALUATION SPECIALIST Pulse 82 03/31/2017 8:02 AM EVALUATION SPECIALIST Temperature 36.9 C (98.4 F) 03/31/2017 8:02 AM EVALUATION SPECIALIST Respiratory Rate 15 03/31/2017 8:02 AM EVALUATION SPECIALIST Oxygen Saturation 91% 05/05/2012 6:50 AM EVALUATION SPECIALIST Inhaled Oxygen Concentration - - Weight 73.3 kg (161 lb 8 oz) 03/31/2017 8:02 AM EVALUATION SPECIALIST Height 162.6 cm (5' 4) 03/31/2017 8:02 AM EVALUATION SPECIALIST Body Mass Index 27.72 03/31/2017 8:02 AM EVALUATION SPECIALIST Plan of Treatment Health Maintenance Due Date Last Done Comments FIT-DNA Q 3 years 2004 FIT/FOBT Q 1 year 2004 Flex Sig/CT Colonography Q 5 years 2004 ZOSTER VACCINE (1 of 2) 2009 BREAST CANCER SCREENING 02/11/2013 02/12/20 12, 02/12/2012, 02/06/2011, Additional history exists PNEUMOCOCCAL VACCINE 50+ YEA RS (2 of 2 - PCV) 05/05/2013 05/05/2012 DTAP/TDAP/TD VACCINES (2 - T d or Tdap) 05/05/2022 05/05/2012 INFLUENZA VACCINE (#1) 2023 9, 03/30/2018, 03/10/2017, Additional history exists OSTEOPOROSIS SCREENING 2024 02/06/2011 COLORECTAL SCREENING 04/16/2030 04/16/2020, 03/07/2012, 03/07/2012 Colorectal Cancer Screening 04/16/2030 RSV VACCINE (60+ or ) (1 - 1-dose 75+ series) 2034 Medical Devices Implanted Type Area Trench Digger Device Identifier Shelf Expiration Date Model / Serial / Lot Port Pwrprt Slim Chrnflx Cath 6fr [id number] - [id number] Implanted:Qty : 1 on 04/08/2012 by Olga Cano [place] [facility] [place]: Subclavian CR BARD- ACCESS SYS 01/06/2014 [id number] / [id number] / [id number] Procedures Procedure Name Priority Date/Time Associated Diagnosis Comments ENDOSCOPY, COLON, SCREENING Routine 03/07/2012 MAMMO SCRN UNI RIGHT W OR WO CAD Routine 02/12/2012 1:18 PM CDT Visit for screening mammogram XR DEXA BONE DENSITY AXIAL 1 OR MORE SITES Routine 02/06/2011 3:14 PM CDT Malignant neoplasm of breast (female), unspecified site (CMS/HCC) Family history of breast cancer Osteopenia from Last 3 Months or Most Recently Relevant to Health Maintenance Results * (ABNORMAL) ENDOSCOPY, COLON, SCREENING (03/07/2012) us Abstract Provider GI PROCEDURE ORDERABLES [facility] * MAMMO DIGITAL SCREEN UNI RIGHT (02/12/2012 1:18 PM CDT) Anatomical Region Laterality Modality Breast Right Mammography 02/12/2012 1:18 PM CDT Narrative 02/15/2012 11:00 AM CDT RIGHT BREAST FULL FIELD DIGITAL SCREENING MAMMOGRAM WITH COMPUTER-AIDED DETECTION, 02/12/2012 HISTORY: The patient has a history of left breast cancer treated with a left mastectomy. The patient has a right implant. The patient had mantle cell lymphoma diagnosed in 2010. On the PET scan, an area of abnormality was identified in the right breast. The patient received treatment and the area disappeared. TECHNIQUE: A right breast full field digital screening mammogram was performed and compared with the previous studies dated January 2011 and January 2010. BREAST COMPOSITION: Scattered fibroglandular densities. FINDINGS: A subpectoral saline implant is identified. This is stable. A new mass is identified within the slightly upper-outer aspect of the right breast, anterior depth. The patient should return for an ultrasound of this finding. No suspicious clustered calcifications are identified within the visualized breast parenchyma. CAD was utilized. OVERALL ASSESSMENT: BI-RADS Category: 0. Incomplete, needs additional imaging evaluation. RECOMMENDATION: Patient should return for a right breast ultrasound of the new mass in the anterior aspect of the right breast. Procedure Note Fang Robison - 02/15/2012 RIGHT BREAST FULL FIELD DIGITAL SCREENING MAMMOGRAM WITH COMPUTER-AIDED DETECTION, 02/12/2012 HISTORY: The patient has a history of left breast cancer treated with a left mastectomy. The patient has a right implant. The patient had mantle cell lymphoma diagnosed in 2010. On the PET scan, an area of abnormality was identified in the right breast. The patient received treatment and the area disappeared. TECHNIQUE: A right breast full field digital screening mammogram was performed and compared with the previous studies dated January 2011 and January 2010. BREAST COMPOSITION: Scattered fibroglandular densities. FINDINGS: A subpectoral saline implant is identified. This is stable. A new mass is identified within the slightly upper-outer aspect of the right breast, anterior depth. The patient should return for an ultrasound of this finding. No suspicious clustered calcifications are identified within the visualized breast parenchyma. CAD was utilized. OVERALL ASSESSMENT: BI-RADS Category: 0. Incomplete, needs additional imaging evaluation. RECOMMENDATION: Patient should return for a right breast ultrasound of the new mass in the anterior aspect of the right breast. us Ele Gardner MD MAMMO ORDERABLES Final Result * XR DEXA BONE DENSITY AXIAL 1 OR MORE SITES (02/06/2011 3:14 PM CDT) Anatomical Region Laterality Modality Computed Radiogr aphy 02/06/2011 3:14 PM CDT Impressions 02/06/2011 3:24 PM CDT IMPRESSION: Lumbar spine: This patient's bone mineral density of the spine is normal when compared to the normal range of young adults. The patient is at low risk for a compression fracture. Hips: This patient's bone mineral density of the femoral neck is osteopenic when compared to the normal range of young adults. The patient is at low risk for a hip fracture. Comments: The fracture risk may increase by age 65.. Detailed report to follow. Dictated by Dr. Jose Avina MD Narrative 02/06/2011 3:24 PM CDT Examination: Bone Density Study (DEXA) Clinical History: 50 year-old postmenopausal female with a personal history of breast cancer. Evaluate current bone density. Findings: Lumbar Spine ( L 1-4 ) spine bone mineral density is 1.17 g/sq cm and corresponds to a T-score of -0.1. Femoral neck densities: Left femoral neck bone mineral density is 0.92 g/sq cm and corresponds to a T-score of -0.8. Right femoral neck bone mineral density is 0.85 g/sq cm and corresponds to a T-score of -1.3. Average femoral neck bone mineral density is 0.89 g/sq cm and corresponds to a T-score of -1.1. Procedure Note Jose Avina MD - 02/06/2011 Examination: Bone Density Study (DEXA) Clinical History: 50 year-old postmenopausal female with a personal history of breast cancer. Evaluate current bone density. Findings: Lumbar Spine ( L 1-4 ) spine bone mineral density is 1.17 g/sq cm and corresponds to a T-score of -0.1. Femoral neck densities: Left femoral neck bone mineral density is 0.92 g/sq cm and corresponds to a T-score of -0.8. Right femoral neck bone mineral density is 0.85 g/sq cm and corresponds to a T-score of -1.3. Average femoral neck bone mineral density is 0.89 g/sq cm and corresponds to a T-score of -1.1. IMPRESSION IMPRESSION: Lumbar spine: This patient's bone mineral density of the spine is normal when compared to the normal range of young adults. The patient is at low risk for a compression fracture. Hips: This patient's bone mineral density of the femoral neck is osteopenic when compared to the normal range of young adults. The patient is at low risk for a hip fracture. Comments: The fracture risk may increase by age 65.. Detailed report to follow. Dictated by Dr. Jose Avina MD Ele Gardner MD DIAGNOSTIC IMAGING ORDERABLES Final Result from Last 3 Months or Most Recently Relevant to Health Maintenance Insurance [facility] Address: [facility] [id number] [place] [address] Advance Directives For more information, please contact: [phone] * Full Code (Latest Code Status on File) Date Activated Date Inactivated Comments 05/01/2012 4:30 PM 05/05/2012 3:14 PM * Full Code Date Activated Date Inactivated Comments 04/08/2012 9:32 AM 04/08/2012 1:42 PM * Full Code Date Activated Date Inactivated Comments 04/08/2012 8:49 AM 04/08/2012 9:32 AM Care Teams Multimedia Developer Relationship Specialty Start Date End Date Shakeel Arora MD [address] [place] [phone] PCP - General 06/03/08
--- OUTSIDE RECORDS SUMMARY | 2024-10-21 18:23 | XMS_ITS | Clinical Summary ---
Author Organization [facility] Address [address] [place] [address] Care Team Providers Care Knotter Hand Name Role Phone Avril Tobar MD Unavailable [phone] Christiano Rosales MD Unavailable [phone] Shakeel Arora MD Primary Care Provider [phone] Mari Lofton MD Unavailable [phone] CyriacBrian MD Unavailable [phone] Allergies Active Allergy Reactions Criticality Noted Date [...] with simethicone-diph enhydramine-lido royce (MAGIC MOUTHWASH) suspension 1-1-2Xoiyxnvrqzd :Chemotherapy-In duced Mucositis Swish and spit 15 [...] 04/14/2018 Assessment & Plan (04/14/2018 8:41 AM UNIFORM DESIGNER): Warm compresses, Doxy 100mg BID PO for 1 week, Maxitrol lele at bedtime (QHS) both eyes (OU) for 1 week Warm compress 2-3 times a day 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 04/14/2018 Combined forms of age-related cataract of both e yes 04/14/2018 Assessment & Plan (04/14/2018 8:42 AM UNIFORM DESIGNER): Asymptomatic, monitor Narrow angle glaucoma suspect of both eyes 04/14 Assessment & Plan (04/14/2018 8:43 AM UNIFORM DESIGNER): Warned pt signs and Symptoms of angle closure Large CD both eyes (OU), borderline IOP Consult with Dr Champion 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 Nancy Avila, adjuvant radiation. Right augmentation mammoplasty Multifocal ca T1cN1 ER+, CT+, Her2 negative, lymphatic permeation; AC/Taxol, RT, Fareston 2011 R breast, T3N1, ER+,CT+,Her2 negative, MIB 7%,lymphovascular and perineural invasion Bilateral mastectomies Assessment & Plan (07/27/2018 4:20 AM CDT): Breast cancer diagnosed in 2000. T3N1, ER/CT+, Stage III. AC + Taxol x 4 cycles (total brittney dose 420mg). Disease recurrence in R breast in 2011. Right mastectomy, XRT, Abraxane x 3 cycles, Exemestane x 5 years [id number]. -No evidence of disease -Continue to monitor [...] involvement. Treatment History: 06/2011-07/2011 RM-CHOP x 2, CT by PET 09/28/2011 BEAM Autologous SCT, CR by PET 12/2011 Rituxan x 2 doses 09/08/2017 CT scan with cecal mass and ileocolic adenopathy 09/29/2017-04/27/18 ABT-199 + Ibrutinib x 6 on 04/27/18-07/11/18 Ibrutinib, CT, dc'd due to toxicities 07/13/18- Rituxan/Revlimid -Recent [...] basilic Port removed in clinic 04/21/12 by corey Lovenox 60 BID Adenocarcinoma of cecum 06/10/2011 Genetic [...] tests 05/01/2012 11/23/2018 Neutropenic fever 05/01/2012 11/23/2018 Encounters Date Type Department Care Team Description 09/28/2024 Documentation [facility] On[facility] [address] [place] [address] 6 [place] [address] Prudence Haskins RMA 09/27/2024 Documentation [facility] [address] [place] [address] 6 [place] [address] Nati Crespo RN 09/26/2024 3:00 PM CDT Infusion [facility] - Infusion [address] [place] [address] Floor 5 [place] [address] Malignant neoplasm of right breast in female, estrogen receptor positive, unspecified site of breast (HCC) (Primary Dx); Malignant neoplasm metastatic to bone (HCC) 09/26/2024 2:00 PM CDT Office Visit [facility] [address] [place] [address] 8 [place] [address] Mari Lofton MD Malignant neoplasm of right breast in female, estrogen receptor positive, unspecified site of breast (HCC) (Primary Dx); Malignant neoplasm metastatic to bone (HCC); 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); Malignant neoplasm of female breast, unspecified estrogen receptor status, unspecified laterality, unspecified site of breast (HCC) 09/26/2024 1:00 PM CDT Lab [facility] - Lab Collection [address] [place] [address] 5 [place] [address] Malignant neoplasm metastatic to bone (HCC); Malignant neoplasm of right breast in female, estrogen receptor positive, unspecified site of breast (HCC); 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) 09/26/2024 Orders Only [facility]cology [address] [place] [address] 8 [place] [address] Phyllis Greer RN 08/23/2024 Documentation [facility] On[facility] [address] [id number] Prudence Haskins RMA 08/23/2024 Orders Only [facility] [address] [address] Prudence Haskins, YIFAN from Last 3 Months Immunizations Immunization Administration Dates Next Due Influenza, Quadrivalent, Roselyn l Culture-based MDCK, Preservative Free, Antibiotic Free, Intramuscular 02/12/2021,02/15/2019,03/30/2018,03/10 Influenza, Trivalent, Preser vative Free, Intramuscular 03/10/2017,03/04/2016,03/06/2015,03/22 Moderna SARS-CoV-2 Monovalen t Vaccination (12+ YRS) 08/01/2020,07/04/2020 Pneumococcal Polysaccharide PPV23 05/05/2012 Tdap 05/05/2012 Surgical History Surgery Date Site/Laterality Comments MASTECTOMY HYSTERECTOMY MASTECTOMY APPENDECTOMY KIDNEY SURGERY COLONOSCOPY BREAST CYST EXCISION Bilateral BIOPSY DEEP BONE 05/31/2020 N/A FLUORO GUIDED INJECTION SHOULDER RIGHT 10/27/2021 Ri ght BREAST BIOPSY 02/12/2012 Right Medical History Medical History Date Comments Allergic rhinitis Cancer (HCC) Sinusitis Headache Blepharitis Lymphoma, mantle cell (HCC) Chronic diarrhea Breast CA (HCC) Family History Medical History Relation Name Comments No Known Problems Brother Hypertension Father Breast cancer Maternal Grandmother Hypertension Mother Breast cancer Mother's Sister No Known Problems Sister Relation Name Status Comments Brother Alive Father Alive Maternal Grandmother Mother Alive Mother's Sister Sister Alive Social History Tobacco Use Types Packs/Day Years [...] on file Legal Sex Female 2:43 AM UNIFORM DESIGNER Gender Identity Not on file Sexual Orientation Not on file Obstetrics History Last Filed Vital Signs Vital Sign Reading [...] 162 cm (5' 3.78) 06/20/2024 7:41 AM UNIFORM DESIGNER Body Mass Index 30.94 06/20/2024 7:41 AM UNIFORM DESIGNER Plan of Treatment Health Maintenance Due Date Last Done Comments Breast Cancer Screening-Mammogram 1960 Depression Screening 1960 Hepatitis C Screening 1960 Hepatitis B Screening 1977 Zoster Vaccine (1 of 2) 1978 Osteoporosis Screening-Bone Density Scan 02/06/2013 02/06/2011, 02/06/2011 Pneumococcal vaccine 65+ (2 of 2 - PCV) 05/05/2013 05/05/2012 Fall Risk Assessment 05/31/2021 05/31/2020 DTaP/Tdap/Td Vaccine (2 - Td or Tdap) 05/05/2022 05/05/2012 Covid-19 Vaccine (4 - 2023-2 5 season) 2024 05/15/2021, 08/01/2020, 07/04/2020 Well Visit 65+ 2024 Influenza Vaccine (Season Ended) 2025 02/12/2021, 02/15/2019, 03/30/2018, Additional history exists Colon Cancer Screening-Colonoscopy 04/16/2030 04/16/2020 Colon Cancer Screening-CT Colonography Discontinued 04/16/2020 Colon Cancer Screening-DNA Stool Discontinued 04/16/20 20 Colon Cancer Screening-FIT Discontinued 04/16/2020 Colon Cancer Screening-Sigmoidoscopy Discontinued 04/16/2020 Procedures Procedure Name Priority Date/Time Associated Diagnosis [...] of breast (HCC) COLONOSCOPY 04/16/2020 10:07 AM UNIFORM DESIGNER from Last 3 Months or Most Recently [...] MD LAB BLOOD ORDERABLES Final R esult [facility] Department [place] [address] * (ABNORMAL) Differential, auto (09/26/2024 12:26 PM CDT) Neutrophil abs 1.11(L) 1.50 - 6.50 K/cumm Comment:Testing performed by : [facility], [address] [place] [phone] Lymphocyte abs 0.83 0.80 - 3.30 K/cumm [facility] Comment:Testing performed by : [facility], [address] [place] [phone] Monocyte abs 0.25 0.20 - 0.80 K/cumm JENNIFER [facility] Comment:Testing performed by : [facility], [address] [place] [phone] Eosinophil abs 0.01 0.00 - 0.50 K/cumm [facility] Comment:Testing performed by : [facility], [address] [place] [phone] Basophil abs 0.08 0.00 - 0.10 K/cumm [facility] Comment:Testing performed by : [facility], [address] [place] [phone] Neutrophil pct 48.8 % [facility] Comment: Interpretive Data Percent cell count reference ranges are not reported, since discordance with absolute values may lead to misinterpretation of CBC data. Current Interpretive Data was last revised on 2017. Testing performed by: [facility], [address] [place] [address] Lymphocyte pct 36.4 % [facility]ER [facility] Comment: Interpretive Data Percent cell count reference ranges are not reported, since discordance with absolute values may lead to misinterpretation of CBC data. Current Interpretive Data was last revised on 2017. Testing performed by: [facility], [address] [place] [address] Monocyte pct 10.9 % [facility] Comment: Interpretive Data Percent cell count reference ranges are not reported, since discordance with absolute values may lead to misinterpretation of CBC data. Current Interpretive Data was last revised on 2017. Testing performed by: [facility], [address] [place], [place] [phone] Eosinophil pct 0.6 % [facility] Comment: Interpretive Data Percent cell count reference ranges are not reported, since discordance with absolute values may lead to misinterpretation of CBC data. Current Interpretive Data was last revised on 2017. Testing performed by: [facility], [address] [place] [phone] Basophil pct 3.3 % [facility] Comment: Interpretive Data Percent cell count reference ranges are not reported, since discordance with absolute values may lead to misinterpretation of CBC data. Current Interpretive Data was last revised on 2017. Testing performed by: [facility], [address] [place] [phone] Blood 09/26/2024 12:2 6 PM CDT 09/26/2024 12:30 PM CDT Christiano Rosales MD LAB BLOOD ORDERABLES Final R esult JENN[facility]ER [facility] Department [place] [address] * (ABNORMAL) CBC with auto differential (09/26/2024 12:26 PM CDT) WBC 2.27(L) 3.80 - 9.90 K/cumm Comment:Testing performed by : [facility], [address] [place] [address] Hgb 13.3 11.9 - 15.5 g/dL CERARCHANA [facility] Comment:Testing performed by : [facility], [address] [place] [address] Hct 38.6 35.6 - 45.5 % CERARCHANA [facility] Comment:Testing performed by : [facility], [address] [place] [address] Plt 193 150 - 400 K/cumm CERARCHANA [facility] Comment:Testing performed by : [facility], [address] [place] [address] MPV 7.3 6.8 - 10.4 fL CERARCHANA [facility] Comment:Testing performed by : [facility], [address] [place] [address] RBC 3.68(L) 3.90 - 5.20 M/cumm JENNIFER [facility] Comment:Testing performed by : [facility], [address] [place] [address] MCV 104.9(H) 81.3 - 96.4 fL CERARCHANA [facility] Comment:Testing performed by : [facility], [address] [place] [address] MCH 36.1(H) 27.1 - 33.3 pg [facility] Comment:Testing performed by : [facility], [address] [place] [address] MCHC 34.4 32.3 - 35.7 g/dL [facility]ERARCHANA [facility] Comment:Testing performed by : [facility], [address] [place] [phone] RDW CV 14.1 11.1 - 14.9 % [facility] Comment:Testing performed by : [facility], [address] [place] [phone] NRBC abs 0.00 0.00 - 0.01 K/cumm [facility] Comment:Testing performed by : [facility], [address] [place] [phone] Blood 09/26/2024 12:2 6 PM CDT 09/26/2024 12:30 PM CDT Christiano Rosales MD LAB BLOOD ORDERABLES Final R esult Performing Organization Address City/[facility] Co de Phone Number [facility] Department [place] [address] * (ABNORMAL) Cancer antigen 15-3 (09/26/2024 12:26 PM CDT) CA 15-3 ag 39.0(H) <=25.0 units/mL Comment: Interpretive Data The Prabhakar CA 15-3 assay procedure was used. Results from different manufacturers or methods may not be comparable. Serial testing should be performed using the same method. Blood 09/26/2024 12:2 6 PM CDT 09/26/2024 12:56 PM CDT us Nati Ocampo NP LAB BLOOD ORDERABLES Final Result Performing Organization Address City/[facility]/ZIP Co de Phone Number [facility] Department [place] [address] * Vitamin D 25 hydroxy (09/26/2024 12:26 PM CDT) Vitamin D 25-OH 37 30 - 80 ng/mL Blood 09/26/2024 12:2 6 PM CDT 09/26/2024 12:35 PM CDT Nati Ocampo DISABILITY PROGRAM NAVIGATOR LAB BLOOD ORDERABLES Final Result Performing Organization Address City/[facility] Co de Phone Number [facility] Department [place] [employer] [place] [address] * Lactate dehydrogenase (LD) (09/26/2024 12:26 PM CDT) Lactate dehydrogenase (LDH) 242 100 - 250 Units/L Blood 09/26/2024 12:2 6 PM CDT 09/26/2024 12:35 PM CDT Christiano Rosales MD LAB BLOOD ORDERABLES Final R esult Performing Organization Address [facility] de [place] [address] * CEA (09/26/2024 12:26 PM CDT) Pathologist [facility] CEA 2.0 <=5.0 ng/mL Comment: Interpretive Data: Reference Range: Non-Smokers: 0.0 5.0 ng/mL Smokers: 0.0 6.5 ng/mL The Prabhakar CEA assay procedure was used. Results from different manufacturers or methods may not be comparable. Serial testing should be performed using the same method. Current interpretive data was last revised 2021. Blood 09/26/2024 12:2 6 PM CDT 09/26/2024 12:56 PM CDT Nati Ocampo DISABILITY PROGRAM NAVIGATOR LAB BLOOD ORDERABLES Final Result Performing Organization Address [facility] Co de Phone Number [facility] [place] [address] * Beta 2 microglobulin, serum (09/26/2024 12:26 PM CDT) Beta 2 Microglobulin, Serum 1.20 1.00 - 2.50 mg/L Comment: Interpretive Data The Prabhakar Beta-2 microglobulin assay procedure was used. Results from different manufacturers or methods may not be comparable. Serial testing should be performed using the same method. Blood 09/26/2024 12:2 6 PM CDT 09/26/2024 12:56 PM CDT Christiano Rosales MD LAB BLOOD ORDERABLES Final R esult [facility] Department [place] [address] * Comprehensive metabolic panel (09/26/2024 12:26 PM CDT) Sodium 141 135 - 145 mmol/L Potassium, pl 3.7 3.3 - 4.9 mmol/L [facility] Chloride 103 97 - 110 mmol/L [facility] CO2 29 22 - 32 mmol/L [facility] Anion gap 9 2 - 15 mmol/L [facility] BUN 15 6 - 25 mg/dL [facility] Creatinine 0.98 0.60 - 1.10 mg/dL [facility] Glucose 106 70 - 199 mg/dL [facility] Comment: Interpretive Data Fasting glucose >/= [...] 2022. Calcium 9.6 8.5 - 10.3 mg/dL [facility] Bilirubin, total 0.4 0.1 - 1.2 mg/dL [facility] Protein, pl 7.6 6.5 - 8.5 g/dL [facility] Albumin 4.7 3.5 - 5.0 g/dL [facility] Alk phos 65 40 - 130 Units/L [facility] ALT 17 7 - 45 Units/L [facility] AST 22 10 - 45 Units/L [facility] Blood 09/26/2024 12:2 6 PM CDT 09/26/2024 12:35 PM CDT us Christiano Rosales MD LAB BLOOD ORDERABLES Final R esult [facility] Department [place] [address] * COLONOSCOPY (04/16/2020 10:07 AM UNIFORM DESIGNER) Anatomical Region Laterality Modality Other Narrative Procedure Note Tony Peña MD - 04/16/2020 10:07 AM [facility] Patient Name: Ella Herrera Procedure Date: 04/16/2020 10:07 AM Date of : 1960 Admit Type: Outpatient Age: 59 Gender: Female Attending MD: Tony Peña M.D. Room: [facility] ENDOSCOPY ROOM 3 Note Status: [...] bowel preparation was evaluated using the BBPS ([place] Bowel Preparation Scale) with scores of: Right [...] On: 04/16/2020 10:07 AM Recognized by the [employer] for promoting quality in endoscopy Tony Peña MD ENDOSCOPY PROCEDURES Fin al Result from Last 3 Months or Most Recently Relevant to Health Maintenance Insurance MEDICARE [facility] ACCESS CHOICE [facility] CHOICE PLUS MEDICARE [facility] Advance Directives For more information, please contact: [phone] * Full Code (Latest Code Status on File) Date Activated Date Inactivated Comments 2020 11:25 AM 04/27/2020 5:00 AM * Full Code Date Activated Date Inactivated Comments 04/16/2020 9:42 AM 04/16/2020 3:34 PM * Full Code Date Activated Date Inactivated Comments 07/27/2018 2:25 AM 07/29/2018 9:03 PM Care Teams Knotter Hand Relationship Specialty Start Date End Date Shakeel Arora MD [address] [address] PCP - General Family Medicine 07/27/19 Avril Tobar MD Referring Physician Dermatology 03/03/19 Christiano Rosales MD [address] [facility] [address] [place] [address] Medical Oncologist/[employer] Medical Oncology 03/03/19 Mari Lofton MD [address] [facility] [address] [place], [place] [id number] Medical Oncologist/[employer] Medical Oncology 07/02/20 Brian Rubi MD [address] [facility] [address] [place] [address] Consulting Physician Diagnostic Radiology 07/03/20
--- OUTSIDE RECORDS SUMMARY | 2024-10-21 18:23 | XMS_ITS ---
Author Organization [facility] Address [address] [place] [address] Care Team Providers Care Post Doctoral Researcher Name Role Phone Avril Tobar MD Unavailable [phone] Christiano Rosales MD Unavailable [phone] Shakeel Arora MD Primary Care Provider [phone] Mari Lofton MD Unavailable [phone] CyriBrian mares MD Unavailable Active Problems Problem Noted Date Diagnosed Date [...] 04/14/2018 Assessment & Plan (04/14/2018 8:41 AM CLINICAL ALLERGIST): Warm compresses, Doxy 100mg BID PO for 1 week, Maxitrol lele at bedtime (QHS) both eyes (OU) for 1 week Warm compress 2-3 times a day 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 04/14/2018 Combined forms of age-related cataract of both e yes 04/14/2018 Assessment & Plan (04/14/2018 8:42 AM CLINICAL ALLERGIST): Asymptomatic, monitor Narrow angle glaucoma suspect of both eyes 04/14 Assessment & Plan (04/14/2018 8:43 AM CLINICAL ALLERGIST): Warned pt signs and Symptoms of angle closure Large CD both eyes (OU), borderline IOP Consult with Dr Champion 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 Nancy Avila, adjuvant radiation. Right augmentation mammoplasty Multifocal ca T1cN1 ER+, WY+, Her2 negative, lymphatic permeation; AC/Taxol, RT, [place] 2011 R breast, T3N1, ER+,WY+,Her2 negative, MIB 7%,lymphovascular and perineural invasion Bilateral mastectomies Assessment & Plan (07/27/2018 4:20 AM CDT): Breast cancer diagnosed in 2000. T3N1, ER/WY+, Stage III. AC + Taxol x 4 cycles (total brittney dose 420mg). Disease recurrence in R breast in 2011. Right mastectomy, XRT, Abraxane x 3 cycles, Exemestane x 5 years [id number]. -No evidence of disease -Continue to monitor [...] involvement. Treatment History: 06/2011-07/2011 RM-CHOP x 2, WY by PET 09/28/2011 BEAM Autologous SCT, CR by PET 12/2011 Rituxan x 2 doses 09/08/2017 CT scan with cecal mass and ileocolic adenopathy 09/29/2017-04/27/18 ABT-199 + Ibrutinib x 6 on 04/27/18-07/11/18 Ibrutinib, [place], dc'd due to toxicities 07/13/18- Rituxan/Revlimid -Recent [...] of anterior chest 6 Overview (12/06/2017): Overview: 2015 DVT of upper extremity (deep vein thrombosis) Overview (12/06/2017): Overview: Duplex 04/21/12: (+) DVT in left subclavian vein, axillary, brachial, basilic Port removed in clinic 04/21/12 by [facility] Lovenox 60 BID Adenocarcinoma of cecum 06/10/2011 Genetic testing 02/06/2011 Overview (12/06/2017): Overview: neg brca Current Treatment and Therapy Plans Hydration Therapy Plan* Plan Start Date:03/11/2021 Plan Provider:Mari Lofton MD Linked Problems Malignant neoplasm metastati c to bone (HCC) Treatment Medications No medications scheduled. IV Maintenance Therapy Plan* Plan Start Date:11/18/2021 Plan Provider:Davis Centeno MD Linked Problems Malignant neoplasm metastati c to bone (HCC) Treatment Medications No medications scheduled. Palbociclib PO / Aromatase inhibitor 28 Day Cycles - Breast* Plan Start Date: 06/17/2020 Plan Provider:Mari Lofton MD Linked Problems Mantle cell lymphoma of lymp h nodes of multiple sites (HCC)Malignant neoplasm of female breast, unspecified estrogen receptor status, unspecified laterality, unspecified site of breast (HCC)Malignant neoplasm metastatic to bone (HCC) Treatment Medications Current Day (Day 1 , Cycle 14 - Planned for 09/26/2024) Next Day (Day 1, Cycle 15 - Planned for 10/24/2024) letrozole (FEMARA) No medications scheduled. No medications scheduled. Zoledronic Acid Every 26 weeks as of 09/26/2024* Plan Start Date:06/20/2024 Plan Provider:Mari Lofton MD Linked Problems Malignant neoplasm metastati c to bone (HCC)Malignant neoplasm of right breast in female, estrogen receptor positive, unspecified site of breast (HCC) Treatment Medications Current Day (Day 1 , Cycle 3 - Planned for 03/27/2025) Next Day (Day 1, Cycle 4 - Planned for 09/25/2025) No medications scheduled. No medications schedul ed. No medications scheduled. Past Treatment and Therapy Plans BMT/ONC IP BLOOD PRODUCTS Plan Name Start Date Discontinue Date Treatment Medications Discontinue Reason Plan Provider BMT (CMV NEGATIVE/UNTESTED) ADULT BLOOD AND PLATELET ADMINISTRATION FOR INPATIENT (VERSION 04/26) 07/27/2018 07/29/2018 No medications scheduled. Therapy Complete Christiano Rosales MD Oncology Chemotherapy Treatment Plan Name Start Date Discontinue Date Treatment Medications Discontinue Reason Plan Provider Cycles Lenalinomide / RiTUXimab 28 Day Cycles - Follicular Lymphoma 07/13/2018 08/03/2018 lenalidomide (REVLIMID)Ramón Ximab (RITUXAN)riTUX imab (RITUXAN) IVPB in 500 mL Toxicity/Comp lication Christiano Rosales MD 1 of 6 cycles started [id number] - [facility] - Lymphoma - Arm E - Ibrutinib / ABT-199 (ABT [id number] ) 8 04/27/2018 ibrutinib (IMBRUVICA)INV -[facility] ABT-199 (venetoclax) (/A [id number]) Therapy Complete Christiano Rosales MD 5 (6 of 7 cycles) completed Oncology Supportive Care Therapy Plan Plan Name Start Date Discontinue Date Treatment Medications Discontinue Reason Plan Provider Zoledronic Acid (ZOMETA) Infusion 07/02/2020 06/16/2024 No medications scheduled. Therapy Complete Mari Lofton MD Oncology Treatment (2) Plan Name Start Date Discontinue Date Treatment Medications Discontinue Reason Plan Provider Cycles Ibrutinib PO Daily - Mantle Cell Lymphoma 04/27/20 18 07/14/2018 ibrutinib (IMBRUVICA) Toxicity/Compl ication Christiano Rosales MD 1 of 2 cycles completed Lifetime Dose Tracking * Chemical Lifetime Dose Automatic Entry Manual Entr y Fluoro Time 0.3 minutes 0.3 minutes 0 minutes DLP 16,061 mGycm 16,061 mGycm 0 mGycm Resolved Problems Problem Noted Date Diagnosed Date [...]
--- OUTSIDE RECORDS SUMMARY | 2024-10-21 18:23 | XMS_ITS | Encounter Summary ---
Author Organization [facility] Address [address] [place] [address] Phone Care Team Providers Care Cytometry Technologist Name Role Phone Avril Tobar MD Unavailable [phone] Christiano Rosales MD Unavailable [phone] Shakeel Arora MD Primary Care Provider [phone] Mari Lofton MD Unavailable [phone] Brian Rubi MD Unavailable [phone] Encounter Details Date Type Department Care Team (Latest Contact Info) Description 2020 Orders Only [facility] Scanning, Provider Social History Tobacco Use Types Packs/Day Years Used Date Smoking Tobacco: Never Smokeless Tobacco: Never Alcohol Use Standard Drinks/Week Comments Yes 0 (1 standard drink = 0.6 oz pur e alcohol) social Comments No Sex and Gender Information Value Date Recorded Sex Assigned at Not on file Legal Sex Female 2:43 AM CLEANING VALIDATION CONSULTANT Gender Identity Not on file Sexual Orientation Not on file documented as of this encounter Plan of Treatment Not on file documented as of this encounter Procedures Procedure Name Priority Date/Time Associated Diagnosis Comments SCAN - PATHOLOGY 2020 documented in this encounter Results * SCAN - PATHOLOGY (2020) us Provider Scanning Final Result documented in this encounter Visit Diagnoses Not on filedocumented in this encounter Care Teams Cytometry Technologist Relationship Specialty Start Date End Date Shakeel Arora MD [address] [address] PCP - General Family Medicine 07/27/19 Avril Tobar MD Referring Physician Dermatology 03/03/19 Christiano Rosales MD [address] [address] Medical Oncologist/Cardiac Specialist Medical Oncology 03/03/19 Mari Lofton MD [address] [address] Medical Oncologist/Cardiac Specialist Medical Oncology 07/02/20 Brian Rubi MD [address] [address] Consulting Physician Diagnostic Radiology 07/03/20 documented as of this encounter
[2024-10-21 18:33] VITALS: BP 143/80; PULSE 102; RESP 20; TEMP 36.3; O2SAT 96
--- NOTE | 2024-10-21 18:48 | ED.LOWEXIN ---
HPI - Extremity Injury (Lower) General Chief Complaint: Extremity Injury, Lower Stated Complaint: right foot injury Time Seen by Provider: 10/21/24 18:26 History of Present Illness HPI Narrative: 64-year-old female presenting after a right lower extremity injury. Patient states that she planted her foot and turned sharply towards the right side and heard an audible pop and then started developing significant pain in the lateral aspect of her right foot and ankle. States she has broken this ankle before without any surgical repair interventions. No direct trauma. Minor swelling at the base of the 5th metatarsal that has improved without any intervention besides ibuprofen. Patient has not tried ambulating on her foot. She was otherwise in her normal state of health. Patient is on multiple chemotherapy agents for active cancer and is worried that her bones may be brittle from this. Denies any systemic features or symptoms as only worried about her ankle at this time. Overlying skin changes, bleeding or skin breakdown. Related Data Home Medications ?Medication ?Instructions ?Recorded ?Confirmed ?Last Taken ?Type letrozole 2.5 mg tablet 2.5 mg PO DAILY 07/18/20 01/19/24 Unknown History loratadine 10 mg tablet (Claritin) 10 mg PO DAILY 07/18/20 01/19/24 Unknown History palbociclib 75 mg capsule (Ibrance) 75 mg PO DAILY 11/06/21 01/19/24 Unknown History multivitamin 1 tablet PO DAILY 06/30/23 01/19/24 Unknown History Allergies Allergy/AdvReac Type Severity Reaction Status Date / Time cefdinir Allergy Unknown Unknown Verified 10/21/24 18:32 moxifloxacin Allergy Unknown Unknown Verified 10/21/24 18:32 Review of Systems Review of Systems: As reviewed above in HPI [facility] Past Medical History Medical History Motion sickness Plantar wart of left foot 2 areas of wart left plantar area of the heel Nail fungus right foot 2nd toe with thickened mycotic nail Seborrhea Pharyngitis Mixed hyperlipidemia (~07/13/23) cholesterol 203, triglycerides 135, HDL 69 with LDL slightly elevated at 107 on 07/13/2023 through oncologist. Sinusitis, acute Acute bronchitis BMI 32.0-32.9,adult Vertigo Candidiasis of mouth Obesity (BMI 30.0-34.9) Otitis externa Muscle cramps Right shoulder pain BMI 31.0-31.9,adult UTI (urinary tract infection) Breast cancer metastasized to bone BMI 31.0-31.9,adult Erythema nodosum Inflammation of eyelid, left COVID-19 virus IgG antibody detected Colon cancer screening Acute non-recurrent maxillary sinusitis Family History Family History Mother Hypertension, Onset Age: 85 Father Hypertension, Onset Age: 87 Social History Social History Smoking status: Never smoker Alcohol intake: current Substance use: never Substance use type: does not use Lack of Transportation: No Lack of Food: Sometimes True Current Housing: I Have Housing Concerned About Future Housing: No Difficulty Paying Gas/Electric Bills: No Difficulty Paying for Meds: No Currently Unemployed: No Education: High School Diploma/GED Difficulty w/ Childcare or Family Care: No Exam Narrative: GENERAL: [Well-appearing, well-nourished, and in no acute distress.] HEAD: [Normocephalic, atraumatic.] EYES: [PERRLA and EOMI.] ENT: Nares clear, no rhinorrhea or epistaxis. Mucous membranes moist. NECK: Supple. CHEST: [Clear to auscultation. No respiratory distress.] HEART: [Regular rate and rhythm]. No murmur heard. [Normal peripheral pulses.] ABDOMEN: [Soft, nondistended], [nontender], [No rigidity or guarding] EXTREMITIES: Focal tenderness to palpation over the 5th metatarsal area on the lateral aspect of the right foot. No tenderness over the posterior tibial ridge or fibular ridge. No deformity, full range of motion at the ankle, able to wiggle each toe. Warm extremity. No overlying bruising. SKIN: Warm, dry, no rash. NEURO: [No focal deficits]. Alert and oriented [x3.] PSYCH: [Normal mood and affect.] Course Vital Signs Vital signs: Vital Signs Temperature 36.3 C L 10/21/24 18:33 Pulse Rate 102 H 10/21/24 18:33 Respiratory Rate 20 10/21/24 18:33 Blood Pressure 143/80 H 10/21/24 18:33 Pulse Oximetry 96 10/21/24 18:33 Oxygen Delivery Room Air 10/21/24 18:33 Temperature 36.3 C L 10/21/24 18:33 Pulse Rate 102 H 10/21/24 18:33 Respiratory Rate 20 10/21/24 18:33 Blood Pressure 143/80 H 10/21/24 18:33 Pulse Oximetry 96 10/21/24 18:33 Oxygen Delivery Room Air 10/21/24 18:33 MDM - Extremity Injury (Lower) MDM Narrative Medical decision making narrative: 64-year-old female presenting with potential injury to her right foot. She states she planted her foot and turned sharply and felt a pop and had immediate pain in the lateral aspect of her right foot. Foot is warm and well perfused with good dorsalis pedis and posterior tibialis pulse. Good cap refill each digit. Ankle plantar and dorsiflexion is full as well as able to move each toe without difficulty. No neuropathy or sensation changes. She has focal reproducible pain with palpation of the 5th metatarsal and lateral edge of the midfoot. Suspect occult fracture versus ligamentous injury. No overlying skin changes or swelling or obvious deformity. X-rays of the foot and ankle were obtained. Patient took ibuprofen prior to arrival. Patient's x-rays were independently reviewed and interpreted by radiology. She has a nondisplaced fracture of the proximal shaft of the 5th metatarsal consistent with possible stress fracture. No displacement. Patient placed into a posterior short leg splint, made nonweightbearing, crutches and ambulation training provided. She will have to follow up with Orthopedics on outpatient basis and will be referred upon discharge. Patient will have pain medications prescribed during cleaning as needed narcotics and encouraged to call Orthopedics office on Wednesday for follow-up. Patient was given return precautions and discharged. Medical Records Attestation: I reviewed the patient's medical records. Imaging Data Attestation: I personally reviewed and interpreted this imaging study as follows: My impression: Impressions Ankle X-Ray 10/21/24 19:07 IMPRESSION: No acute fracture or dislocation Foot X-Ray 10/21/24 19:08 IMPRESSION: Acute nondisplaced fracture of the proximal shaft of the fifth metatarsal, as detailed above. Discharge Plan Discharge Clinical Impression: Fracture of fifth metatarsal bone of right foot Patient Disposition: Home Condition: Stable Instructions: Antibiotic Form, Foot Fracture in Adults (ED) Additional Instructions: You have a nondisplaced fracture of the proximal shaft in the right 5th metatarsal which is the area that your pain is localized to. We will place you into a splint and provided crutches. Maintain nonweightbearing on the leg until seen by Orthopedic surgery on outpatient basis. Use crutches for ambulation. We will provide you with pain medications as needed and the field applications specialist contact info. Call them at your earliest convenience for close follow-up. Return with any new or worsening concerns such as worsening pain or swelling, numbness in the foot, inability to move the foot or concerning overlying skin changes. Patient Language: Welsh Prescriptions: New ibuprofen 800 mg tablet 800 mg PO TID PRN (Reason: pain) Qty: 30 0RF acetaminophen [Tylenol Extra Strength] 500 mg tablet 1,000 mg PO TID PRN (Reason: pain) Qty: 30 0RF oxycodone 5 mg tablet 5 mg PO Q8H PRN (Reason: pain) Qty: 10 0RF No Action Ibrance 75 mg capsule 75 mg PO DAILY Rx Instructions: per oncology multivitamin Tablet 1 tablet PO DAILY fluticasone propionate [Flonase Allergy Relief] 50 mcg/actuation spray,suspension 1 spray intranasal BID Qty: 16 11RF Rx Instructions: administer into each nostril benzonatate 200 mg capsule 200 mg PO TID PRN (Reason: cough) Qty: 30 0RF mometasone 0.1 % cream 1 applic topical DAILY PRN (Reason: rash) 14 Days Qty: 15 2RF loratadine [Claritin] 10 mg tablet 10 mg PO DAILY letrozole 2.5 mg tablet 2.5 mg PO DAILY diazepam 2 mg tablet 2 mg PO BID PRN (Reason: vertigo) Qty: 10 0RF tobramycin 0.3 % drops See Rx Instructions ophthalmic (eye) Q4H Qty: 5 1RF Rx Instructions: 1 drop in affected eye every 4 hours for 7 day meclizine 25 mg tablet 25 mg PO TID PRN (Reason: dizziness) Qty: 90 0RF amoxicillin-pot clavulanate 875-125 mg tablet 1 tablet PO Q12H Qty: 20 0RF scopolamine base 1 mg over 3 days patch 3 day 1 patch transdermal Q3D PRN (Reason: motion sickness) Qty: 4 1RF Rx Instructions: hold meclizine while on the scopolamine zolpidem 10 mg tablet 10 mg PO . q.h.s. PRN (Reason: insomnia) Qty: 30 5RF Follow-up/Referrals: Jame Craig MD [Physician] - 2 Days (5th metatarsal fracture) PHYSICIAN,MUSICAL INSTRUMENT MAKER [Non-Staff] - Time of Disposition: 19:30
--- OUTSIDE RECORDS SUMMARY | 2024-10-21 18:54 | XMS_ITS | Encounter Summary ---
Author Organization [facility] [employer] [facility] Address [address] [place] [address] Phone Care Team Providers Care Yard Goods Salesperson Name Role Phone Avril Tobar MD Unavailable Christiano Rosales MD Unavailable [phone] Shakeel Arora MD Primary Care Provider [phone] Mari Lofton MD Unavailable [phone] Brian Rubi MD Unavailable [phone] Encounter Details Date Type Department Care Team (Late st Contact Info) Description 01/04/2024 Social Work [facility] Oncology [address] [place] [address] [place] [id number] Sonia Rothman LCSW Social History Tobacco Use Types Packs/Day Years Used Date Smoking Tobacco: Never Passive Smoke Exposure: Never Smokeless Tobacco: Never Alcohol Use Standard Drinks/Week Comments Not Currently 0 (1 standard drink = 0.6 oz pur e alcohol) social Comments No Sex and Gender Information Value Date Recorded Sex Assigned at Not on file Legal Sex Female 2:43 AM POUND ATTENDANT Gender Identity Not on file Sexual Orientation Not on file documented as of this encounter Plan of Treatment Not on file documented as of this encounter Visit Diagnoses Not on filedocumented in this encounter Care Teams Yard Goods Salesperson Relationship Specialty Start Date End Date Shakeel Arora MD [address] [address] PCP - General Family Medicine 07/27/19 Avril Tobar MD Referring Physician Dermatology 03/03/19 Christiano Rosales MD [address] [address] Medical Oncologist/Playground Equipment Erector Medical Oncology 03/03/19 Mari Lofton MD [address] [address] Medical Oncologist/Playground Equipment Erector Medical Oncology 07/02/20 Brian Rubi MD [address] [address] Consulting Physician Diagnostic Radiology 07/03/20 documented as of this encounter
--- OUTSIDE RECORDS SUMMARY | 2024-10-21 18:54 | XMS_ITS | Referral Summary ---
Author Organization [facility] Address [address] [place] [address] Care Team Providers Care Senior Biostatistician Name Role Phone Avril Tobar MD Unavailable [phone] Christiano Rsoales MD Unavailable Shakeel Arora MD Primary Care Provider [phone] Mari Lofton MD Unavailable [phone] Brian Rubi MD Unavailable [phone] Encounters Date Type Department Care Team Description 09/28/2024 Documentation [facility] Oncology [address] [place] [address] Floor 6 [place] [address] Prudence Haskins RMSandy 09/27/2024 Documentation [facility] Oncology [address] [place] [address] Floor 6 [place] [address] Nati Crespo, RN 09/26/2024 Orders Only [facility] Oncology [address] [place] [address] Floor 8 [place] [address] Phyllis Greer RN 09/26/2024 3:00 PM CDT Infusion [facility] - Infusion [address] [place] [address] Floor 5 [place] [address] Malignant neoplasm of right breast in female, estrogen receptor positive, unspecified site of breast (HCC) (Primary Dx); Malignant neoplasm metastatic to bone (HCC) 09/26/2024 1:[address] 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 Oncology [address] [place] [address] 6 [place] [address] Prudence Haskins RMA 08/23/2024 Orders Only 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 Nancy Avila, adjuvant radiation. Right augmentation mammoplasty Multifocal ca T1cN1 ER+, HI+, Her2 negative, lymphatic permeation; AC/Taxol, RT, Fareston 2011 R breast, T3N1, ER+,HI+,Her2 negative, MIB 7%,lymphovascular and perineural invasion Bilateral mastectomies Assessment & Plan (07/27/2018 4:20 AM CDT): Breast cancer diagnosed in 2000. T3N1, ER/HI+, Stage III. AC + Taxol x 4 cycles (total brittney dose 420mg). Disease recurrence in R breast in 2011. Right mastectomy, XRT, Abraxane x 3 cycles, Exemestane x 5 years 3398-0030. -No evidence of disease -Continue to monitor [...] involvement. Treatment History: 06/2011-07/2011 RM-CHOP x 2, HI by PET 09/28/2011 BEAM Autologous SCT, CR by PET 12/2011 Rituxan x 2 doses 09/08/2017 CT scan with cecal mass and ileocolic adenopathy 09/29/2017-04/27/18 ABT-199 + Ibrutinib x 6 on 04/27/18-07/11/18 Ibrutinib, HI, dc'd due to toxicities 07/13/18- Rituxan/Revlimid -Recent [...] on file Legal Sex Female 2:43 AM ACCESS CLERK Gender Identity Not on file Sexual Orientation [...] 162 cm (5' 3.78) 06/20/2024 7:41 AM ACCESS CLERK Body Mass Index 30.94 06/20/2024 7:41 AM ACCESS CLERK Plan of Treatment Not on file Procedures [...] of breast (HCC) COLONOSCOPY 04/16/2020 10:07 AM ACCESS CLERK from Last 3 Months or Most Recently [...] LAB BLOOD ORDERABLES Final R esult [facility] Department of Laboratories [place] [id number] * (ABNORMAL) Differential, auto (09/26/2024 12:26 PM CDT) Pathologist [facility] Neutrophil abs 1.11(L) 1.50 - 6.50 K/cumm Comment:Testing performed by : [facility], [address] [place] [phone] Lymphocyte abs 0.83 0.80 - 3.30 K/cumm JENNIFER CASSIDY Comment:Testing performed by : [facility], [address] [place] [phone] Monocyte abs 0.25 0.20 - 0.80 K/cumm [facility] Comment:Testing performed by : [facility], [address] [place] [phone] Eosinophil abs 0.01 0.00 - 0.50 K/cumm [facility] Comment:Testing performed by : [facility], [address] [place] [phone] Basophil abs 0.08 0.00 - 0.10 K/cumm [facility] Comment:Testing performed by : [facility], [address] [place] [phone] Neutrophil pct 48.8 % [facility] Comment: Interpretive Data Percent cell count reference ranges are not reported, since discordance with absolute values may lead to misinterpretation of CBC data. Current Interpretive Data was last revised on 2017. Testing performed by: [facility], [address] [place] [phone] Lymphocyte pct 36.4 % [facility] Comment: Interpretive Data Percent cell count reference ranges are not reported, since discordance with absolute values may lead to misinterpretation of CBC data. Current Interpretive Data was last revised on 2017. Testing performed by: [facility], [address] [place] [phone] Monocyte pct 10.9 % [facility] Comment: Interpretive Data Percent cell count reference ranges are not reported, since discordance with absolute values may lead to misinterpretation of CBC data. Current Interpretive Data was last revised on 2017. Testing performed by: [facility], [address] [place] [phone] Eosinophil pct 0.6 % [facility] Comment: Interpretive Data Percent cell count reference ranges are not reported, since discordance with absolute values may lead to misinterpretation of CBC data. Current Interpretive Data was last revised on 2017. Testing performed by: [facility], [address] [place] [phone] Basophil pct 3.3 % [facility] Comment: Interpretive Data Percent cell count reference ranges are not reported, since discordance with absolute values may lead to misinterpretation of CBC data. Current Interpretive Data was last revised on 2017. Testing performed by: [facility], [address] [place] [address] Blood 09/26/2024 12:2 6 PM CDT 09/26/2024 12:30 PM CDT Christiano Rosales MD LAB BLOOD ORDERABLES Final R esult [facility] [place] [address] * (ABNORMAL) CBC with auto differential (09/26/2024 12:26 PM CDT) WBC 2.27(L) 3.80 - 9.90 K/cumm Comment:Testing performed by : [facility], [address] [place] [address] Hgb 13.3 11.9 - 15.5 g/dL CERARCHANA CASSIDY Comment:Testing performed by : [facility], [address] [place] [address] Hct 38.6 35.6 - 45.5 % [facility] Comment:Testing performed by : [facility], [address] [place] [address] Plt 193 150 - 400 K/cumm CERARCHANA [facility] Comment:Testing performed by : [facility], [address] [place] [address] MPV 7.3 6.8 - 10.4 fL [facility] Comment:Testing performed by : [facility], [address] [place] [address] RBC 3.68(L) 3.90 - 5.20 M/cumm [facility]ERARCHANA [facility] Comment:Testing performed by : [facility], [address] [place] [address] MCV 104.9(H) 81.3 - 96.4 fL [facility] Comment:Testing performed by : [facility], [address] [place] [address] MCH 36.1(H) 27.1 - 33.3 pg [facility]ER [facility] Comment:Testing performed by : [facility], [address] [place] [address] MCHC 34.4 32.3 - 35.7 g/dL [facility] Comment:Testing performed by : [facility], [address] [place] [address] RDW CV 14.1 11.1 - 14.9 % [facility] Comment:Testing performed by : [facility], [address] [place] [address] NRBC abs 0.00 0.00 - 0.01 K/cumm [facility] Comment:Testing performed by : [facility], [address] [place] [address] Blood 09/26/2024 12:2 6 PM CDT 09/26/2024 12:30 PM CDT Christiano Rosales MD LAB BLOOD ORDERABLES Final R esult Performing Organization Address City/[facility] Co de Phone Number [facility] Department [email or web address] [address] * (ABNORMAL) Cancer antigen 15-3 (09/26/2024 12:26 [...] BLOOD ORDERABLES Final Result Performing Organization Address City/[facility] Co de Phone Number [facility] Department [place] [address] * Vitamin D 25 hydroxy (09/26/2024 12:26 PM CDT) Pathologist [facility] [place] Vitamin D 25-OH 37 30 - 80 ng/mL Blood 09/26/2024 12:2 6 PM CDT 09/26/2024 12:35 PM CDT Nati Ocampo CHICK[employer] BU[employer]ER LAB BLOOD ORDERABLES Final Result Performing Organization Address [facility] Co de Phone Number JENNIFER [facility] Department [email or web address] [address] * Lactate dehydrogenase (LD) (09/26/2024 12:26 PM CDT) [facility] Lactate dehydrogenase (LDH) 242 100 - 250 Units/L Blood 09/26/2024 12:2 6 PM CDT 09/26/2024 12:35 PM CDT Christiano Rosales MD LAB BLOOD ORDERABLES Final R esult Performing Organization Address [facility] de Phone Number JENNIFER [facility] [email or web address] [address] * CEA (09/26/2024 12:26 PM CDT) [facility] CEA 2.0 <=5.0 ng/mL Comment: Interpretive Data: Reference Range: Non-Smokers: 0.0 5.0 ng/mL Smokers: 0.0 6.5 ng/mL The Prabhakar CEA assay procedure was used. Results from different manufacturers or methods may not be comparable. Serial testing should be performed using the same method. Current interpretive data was last revised 2021. Blood 09/26/2024 12:2 6 PM CDT 09/26/2024 12:56 PM CDT Nati Ocampo [employer] LAB BLOOD ORDERABLES Final Result Performing Organization Address [facility] Co de Phone Number [facility] [email or web address] [address] * Beta 2 microglobulin, serum (09/26/2024 12:26 PM CDT) Pathologist [facility] Beta 2 Microglobulin, Serum 1.20 1.00 - 2.50 mg/L Comment: Interpretive Data The Prabhakar Beta-2 microglobulin assay procedure was used. Results from different manufacturers or methods may not be comparable. Serial testing should be performed using the same method. Blood 09/26/2024 12:2 6 PM CDT 09/26/2024 12:56 PM CDT Christiano Rosales MD LAB BLOOD ORDERABLES Final R esult [facility] [place] [address] * Comprehensive metabolic panel (09/26/2024 12:26 PM CDT) Pathologist [facility] Sodium 141 135 - 145 mmol/L Potassium, pl 3.7 3.3 - 4.9 mmol/L [facility] Chloride 103 97 - 110 mmol/L [facility] CO2 29 22 - 32 mmol/L [facility] Anion gap 9 2 - 15 mmol/L [facility] BUN 15 6 - 25 mg/dL [facility] Creatinine 0.98 0.60 - 1.10 mg/dL [facility] Glucose 106 70 - 199 mg/dL [facility] Comment: Interpretive Data Fasting glucose >/= [...] Calcium 9.6 8.5 - 10.3 mg/dL [facility] Bilirubin, total 0.4 0.1 - 1.2 mg/dL [facility] Protein, pl 7.6 6.5 - 8.5 g/dL [facility] Albumin 4.7 3.5 - 5.0 g/dL [facility] Alk phos 65 40 - 130 Units/L [facility] ALT 17 7 - 45 Units/L [facility] AST 22 10 - 45 Units/L [facility] Blood 09/26/2024 12:2 6 PM CDT 09/26/2024 12:35 PM CDT us Christiano Rosales MD LAB BLOOD ORDERABLES Final R esult [facility] [place] [address] * COLONOSCOPY (04/16/2020 10:07 AM ACCESS CLERK) Anatomical Region Laterality Modality Other Narrative Procedure Note Tony Peña MD - 04/16/2020 10:07 AM CST [facility] Patient Name: Ella Herrera Procedure Date: 04/16/2020 10:07 AM Date of : 1960 Admit Type: Outpatient Age: 59 Gender: Female Attending MD: Tony Peña M.D. Room: [facility] ENDOSCOPY ROOM 3 Note Status: Finalized Procedure: [...] bowel preparation was evaluated using the BBPS (Bronson Bowel Preparation Scale) with scores of: Right [...] On: 04/16/2020 10:07 AM Recognized by the [employer] for promoting quality in endoscopy us Tony Peña MD ENDOSCOPY PROCEDURES Fin al Result from Last 3 Months or Most Recently Relevant to Health Maintenance Insurance MEDICARE [facility] ANTHEM ACCESS CHOICE [facility] CHOICE [facility]US [facility] HMO/PPO Address: [address] [address] [place] [address] MEDICARE [facility] Advance Directives For more information, please contact: [phone] * Full Code (Latest Code Status on File) Date Activated Date Inactivated Comments 2020 11:25 AM 04/27/2020 5:00 AM * Full Code Date Activated Date Inactivated Comments 04/16/2020 9:42 AM 04/16/2020 3:34 PM * Full Code Date Activated Date Inactivated Comments 07/27/2018 2:25 AM 07/29/2018 9:03 PM Care Teams Senior Biostatistician Relationship Specialty Start Date End Date Shakeel Arora MD [address] [address] PCP - General Family Medicine 07/27/19 Avril Tobar MD Referring Physician Dermatology 03/03/19 Christiano Rosales MD [address] [address] Medical Oncologist/Grain Drier Operator Medical Oncology 03/03/19 Mari Lofton MD [address] [address] Medical Oncologist/Grain Drier Operator Medical Oncology 07/02/20 Brian Rubi MD [address] [address] Consulting Physician Diagnostic Radiology 07/03/20
--- OUTSIDE RECORDS SUMMARY | 2024-10-21 18:54 | XMS_ITS | Continuity of Care Document ---
Author Organization [facility] Address [address] [place] [address] [address] [place] [address] Phone Care Team Providers Care Yard Demurrage Clerk Name Role Phone Sanchez OD, Jose Unavailable Unavailable Procedures Procedure Date Office/outpatient Visit, Est Remove Foreign Body From Eye Advance Directives Directive Yes / No Effective Date File Name No Information Encounters Encounter Description Practice Location Reason(s) For Visit Diagnoses Date Provider Providers Copied on Encounter Office/outpat ient Visit, Est [facility], [address] [place] [address] [address], [place], [place], [id number], tel:[phone] [facility] No Information Jul-0 4-201 0 Sanchez OD Jose. [address], [place], [place], [facility], [place]. tel:[phone] [facility], [address] [place] [address] [address], [place], [place], [id number], tel:[phone] [facility] No Information 7-201 0 Sanchez OD Jose. [address] , [address], [place], [address], [place]. tel:[phone] Family History Family Member Type Diagnosis Age At Onset No Information Payers Payer name Insurance type Covered democrat ID Authorhirama rito(s) [facility] CI [id number] Social History Type Description Quantity Date Captured [...]
--- OUTSIDE RECORDS SUMMARY | 2024-10-21 18:54 | XMS_ITS | Clinical Summary ---
Author Organization [facility] Address [address] [place] [address] Care Team Providers Care Human Development Professor Name Role Phone Avril Tobar MD Unavailable [phone] Christiano Rosales MD Unavailable [phone] Shaekel Arora MD Primary Care Provider [phone] Mari Lofton MD Unavailable [phone] CyriacBrian MD Unavailable [phone] Allergies Active Allergy Reactions Criticality Noted Date [...] with simethicone-diph enhydramine-lido royce (MAGIC MOUTHWASH) suspension 2-5-7Nikxppzgvju :Chemotherapy-In duced Mucositis Swish and spit 15 [...] 04/14/2018 Assessment & Plan (04/14/2018 8:41 AM DATA PROCESSING SYSTEMS PROJECT PLANNER): Warm compresses, Doxy 100mg BID PO for 1 week, Maxitrol lele at bedtime (QHS) both eyes (OU) for 1 week Warm compress 2-3 times a day 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 04/14/2018 Combined forms of age-related cataract of both e yes 04/14/2018 Assessment & Plan (04/14/2018 8:42 AM DATA PROCESSING SYSTEMS PROJECT PLANNER): Asymptomatic, monitor Narrow angle glaucoma suspect of both eyes 04/14 Assessment & Plan (04/14/2018 8:43 AM DATA PROCESSING SYSTEMS PROJECT PLANNER): Warned pt signs and Symptoms of angle closure Large CD both eyes (OU), borderline IOP Consult with Dr Champion 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 Nancy Avila, adjuvant radiation. Right augmentation mammoplasty Multifocal ca T1cN1 ER+, MD+, Her2 negative, lymphatic permeation; AC/Taxol, RT, [facility] 2011 R breast, T3N1, ER+,MD+,Her2 negative, MIB 7%,lymphovascular and perineural invasion Bilateral mastectomies Assessment & Plan (07/27/2018 4:20 AM CDT): Breast cancer diagnosed in 2000. T3N1, ER/MD+, Stage III. AC + Taxol x 4 cycles (total brittney dose 420mg). Disease recurrence in R breast in 2011. Right mastectomy, XRT, Abraxane x 3 cycles, Exemestane x 5 years [id number]. -No evidence of disease -Continue to monitor [...] involvement. Treatment History: 06/2011-07/2011 RM-CHOP x 2, MD by PET 09/28/2011 BEAM Autologous SCT, CR by PET 12/2011 Rituxan x 2 doses 09/08/2017 CT scan with cecal mass and ileocolic adenopathy 09/29/2017-04/27/18 ABT-199 + Ibrutinib x 6 on 04/27/18-07/11/18 Ibrutinib, MD, dc'd due to toxicities 07/13/18- Rituxan/Revlimid -Recent [...] Type Department Care Team Description 09/28/2024 Documentation [facility] [address] [place] [address] 6 [place] [address] Prudence Haskins RMA 09/27/2024 Documentation [facility] [address] [place] [address] 6 [place] [address] Nati Crespo RN 09/26/2024 3:00 PM CDT Infusion [facility] - Infusion [address] [place] [address] Floor 5 [place] [address] Malignant neoplasm of right breast in female, estrogen receptor positive, unspecified site of breast (HCC) (Primary Dx); Malignant neoplasm metastatic to bone (HCC) 09/26/2024 2:00 PM CDT Office Visit [facility] [address] [place] [address] 8 [place] [address] Mari Lofton MD Malignant neoplasm of right breast in female, estrogen receptor positive, unspecified site of breast (HCC) (Primary Dx); Malignant neoplasm metastatic to bone (HCC); 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); Malignant neoplasm of female breast, unspecified estrogen receptor status, unspecified laterality, unspecified site of breast (HCC) 09/26/2024 1:00 PM CDT Lab [facility] - Lab Collection [address] [place] [address] 5 [place] [address] Malignant neoplasm metastatic to bone (HCC); Malignant neoplasm of right breast in female, estrogen receptor positive, unspecified site of breast (HCC); 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) 09/26/2024 Orders Only [facility] [address] [place] [address] 8 [place] [address] Phyllis Greer RN 08/23/2024 Documentation [facility] [address] [id number] Prudence Haskins RMA 08/23/2024 Orders Only [facility] [address] [address] Prudence Haskins, YIFAN from Last 3 Months [...] on file Legal Sex Female 2:43 AM DATA PROCESSING SYSTEMS PROJECT PLANNER Gender Identity Not on file Sexual Orientation [...] 162 cm (5' 3.78) 06/20/2024 7:41 AM DATA PROCESSING SYSTEMS PROJECT PLANNER Body Mass Index 30.94 06/20/2024 7:41 AM DATA PROCESSING SYSTEMS PROJECT PLANNER Plan of Treatment Health Maintenance Due Date [...] of breast (HCC) COLONOSCOPY 04/16/2020 10:07 AM DATA PROCESSING SYSTEMS PROJECT PLANNER from Last 3 Months or Most Recently [...] MD LAB BLOOD ORDERABLES Final R esult [facility] Department [place] [address] * (ABNORMAL) Differential, auto (09/26/2024 12:26 PM CDT) Neutrophil abs 1.11(L) 1.50 - 6.50 K/cumm Comment:Testing performed by : [facility], [address] [place] [phone] Lymphocyte abs 0.83 0.80 - 3.30 K/cumm [facility] Comment:Testing performed by : [facility], [address] [place] [phone] Monocyte abs 0.25 0.20 - 0.80 K/cumm JENNIFER [facility] Comment:Testing performed by : [facility], [address] [place] [phone] Eosinophil abs 0.01 0.00 - 0.50 K/cumm [facility] Comment:Testing performed by : [facility], [address] [place] [phone] Basophil abs 0.08 0.00 - 0.10 K/cumm [facility] Comment:Testing performed by : [facility], [address] [place] [phone] Neutrophil pct 48.8 % [facility] Comment: Interpretive Data Percent cell count reference ranges are not reported, since discordance with absolute values may lead to misinterpretation of CBC data. Current Interpretive Data was last revised on 2017. Testing performed by: [facility], [address] [place] [address] Lymphocyte pct 36.4 % [facility] Comment: Interpretive Data Percent cell count reference ranges are not reported, since discordance with absolute values may lead to misinterpretation of CBC data. Current Interpretive Data was last revised on 2017. Testing performed by: [facility], [address] [place] [address] Monocyte pct 10.9 % [facility] Comment: Interpretive Data Percent cell count reference ranges are not reported, since discordance with absolute values may lead to misinterpretation of CBC data. Current Interpretive Data was last revised on 2017. Testing performed by: [facility], [address] [place], [place] [id number] Eosinophil pct 0.6 % [facility] Comment: Interpretive Data Percent cell count reference ranges are not reported, since discordance with absolute values may lead to misinterpretation of CBC data. Current Interpretive Data was last revised on 2017. Testing performed by: [facility], [address] [place] [phone] Basophil pct 3.3 % [facility] Comment: Interpretive Data Percent cell count reference ranges are not reported, since discordance with absolute values may lead to misinterpretation of CBC data. Current Interpretive Data was last revised on 2017. Testing performed by: [facility], [address] [place] [phone] Blood 09/26/2024 12:2 6 PM CDT 09/26/2024 12:30 PM CDT Christiano Rosales MD LAB BLOOD ORDERABLES Final R esult JENNIFER [facility] [place] [address] * (ABNORMAL) CBC with auto differential (09/26/2024 12:26 PM CDT) WBC 2.27(L) 3.80 - 9.90 K/cumm Comment:Testing performed by : [facility], [address] [place] [address] Hgb 13.3 11.9 - 15.5 g/dL CERARCHANA C[facility] Comment:Testing performed by : [facility], [address] [place] [address] Hct 38.6 35.6 - 45.5 % CERARCHANA CASSIDY Comment:Testing performed by : [facility], [address] [place] [address] Plt 193 150 - 400 K/cumm CERARCHANA CASSIDY Comment:Testing performed by : [facility], [address] [place] [address] MPV 7.3 6.8 - 10.4 fL CERARCHANA [facility]J Comment:Testing performed by : [facility], [address] [place] [address] RBC 3.68(L) 3.90 - 5.20 M/cumm [facility]ENN[facility]ER [facility] Comment:Testing performed by : [facility], [address] [place] [address] MCV 104.9(H) 81.3 - 96.4 fL CERARCHANA [facility]J Comment:Testing performed by : [facility], [address] [place] [address] MCH 36.1(H) 27.1 - 33.3 pg [facility] Comment:Testing performed by : [facility], [address] [place] [address] MCHC 34.4 32.3 - 35.7 g/dL CERARCHANA [facility] Comment:Testing performed by : [facility], [address] [place] [phone] RDW CV 14.1 11.1 - 14.9 % [facility] Comment:Testing performed by : [facility], [address] [place] [phone] NRBC abs 0.00 0.00 - 0.01 K/cumm [facility] Comment:Testing performed by : [facility], [address] [place] [phone] Blood 09/26/2024 12:2 6 PM CDT 09/26/2024 12:30 PM CDT Christiano Rosales MD LAB BLOOD ORDERABLES Final R esult Performing Organization Address City/[facility] Co de Phone Number [facility] Department [place] [address] * (ABNORMAL) Cancer antigen 15-3 (09/26/2024 12:26 [...] BLOOD ORDERABLES Final Result Performing Organization Address City/[facility]/ZIP Co de Phone Number [facility] Department [place] [address] * Vitamin D 25 hydroxy (09/26/2024 12:26 PM CDT) Vitamin D 25-OH 37 30 - 80 ng/mL Blood 09/26/2024 12:2 6 PM CDT 09/26/2024 12:35 PM CDT Nati Ocampo LOAN PROCESSOR LAB BLOOD ORDERABLES Final Result Performing Organization Address City/[facility] Co de Phone Number [facility] [place] [address] * Lactate dehydrogenase (LD) (09/26/2024 12:26 PM CDT) Lactate dehydrogenase (LDH) 242 100 - 250 Units/L Blood 09/26/2024 12:2 6 PM CDT 09/26/2024 12:35 PM CDT Christiano Rosales MD LAB BLOOD ORDERABLES Final R esult Performing Organization Address [facility] [place] [address] * CEA (09/26/2024 12:26 PM CDT) Pathologist [...] CDT 09/26/2024 12:56 PM CDT Nati Ocampo LOAN PROCESSOR LAB BLOOD ORDERABLES Final Result Performing Organization Address [facility] Co de Phone Number [facility] [place] [address] * Beta 2 microglobulin, serum (09/26/2024 12:26 [...] MD LAB BLOOD ORDERABLES Final R esult [facility] [place] [address] * Comprehensive metabolic panel (09/26/2024 12:26 PM CDT) Sodium 141 135 - 145 mmol/L Potassium, pl 3.7 3.3 - 4.9 mmol/L [facility] Chloride 103 97 - 110 mmol/L [facility] CO2 29 22 - 32 mmol/L [facility] Anion gap 9 2 - 15 mmol/L [facility] BUN 15 6 - 25 mg/dL [facility] Creatinine 0.98 0.60 - 1.10 mg/dL [facility] Glucose 106 70 - 199 mg/dL [facility] Comment: Interpretive Data Fasting glucose >/= 126 [...] 2022. Calcium 9.6 8.5 - 10.3 mg/dL [facility] Bilirubin, total 0.4 0.1 - 1.2 mg/dL [facility] Protein, pl 7.6 6.5 - 8.5 g/dL [facility] Albumin 4.7 3.5 - 5.0 g/dL [facility] Alk phos 65 40 - 130 Units/L [facility] ALT 17 7 - 45 Units/L [facility] AST 22 10 - 45 Units/L [facility] Blood 09/26/2024 12:2 6 PM CDT 09/26/2024 12:35 PM CDT us Christiano Rosales MD LAB BLOOD ORDERABLES Final R esult [facility] [place] [address] * COLONOSCOPY (04/16/2020 10:07 AM DATA PROCESSING SYSTEMS PROJECT PLANNER) Anatomical Region Laterality Modality Other Narrative Procedure Note Tony Peña MD - 04/16/2020 10:07 AM CST [facility] Patient Name: Ella Herrera Procedure Date: 04/16/2020 10:07 AM Date of : 1960 Admit Type: Outpatient Age: 59 Gender: Female Attending MD: Tony Peña M.D. Room: [facility] ENDOSCOPY ROOM 3 Note Status: [...] bowel preparation was evaluated using the BBPS ([place] Bowel Preparation Scale) with scores of: Right [...] On: 04/16/2020 10:07 AM Recognized by the [employer] for promoting quality in endoscopy Tony Peña MD ENDOSCOPY PROCEDURES Fin al Result from Last 3 Months or Most Recently Relevant to Health Maintenance Insurance MEDICARE [facility] ACCESS CHOICE [facility] CHOICE [facility] HMO/PPO Address: [address] [address] [place] [address] MEDICARE [facility] Advance Directives For more information, please contact: [phone] * Full Code (Latest Code Status on File) Date Activated Date Inactivated Comments 2020 11:25 AM 04/27/2020 5:00 AM * Full Code Date Activated Date Inactivated Comments 04/16/2020 9:42 AM 04/16/2020 3:34 PM * Full Code Date Activated Date Inactivated Comments 07/27/2018 2:25 AM 07/29/2018 9:03 PM Care Teams Human Development Professor Relationship Specialty Start Date End Date Shakeel Arora MD [address] [address] PCP - General Family Medicine 07/27/19 Avril Tobar MD Referring Physician Dermatology 03/03/19 Christiano Rosales MD [address] [facility] [address] [place] [address] Medical Oncologist/Fire Extinguisher Inspector Medical Oncology 03/03/19 Mari Lofton MD [address] [facility] [address] [place], [place] [id number] Medical Oncologist/Fire Extinguisher Inspector Medical Oncology 07/02/20 Brian Rubi MD [address] [facility] [address] [place] [address] Consulting Physician Diagnostic Radiology 07/03/20
--- OUTSIDE RECORDS SUMMARY | 2024-10-21 18:54 | XMS_ITS | Clinical Summary ---
Author Organization [facility] Address [address] [place] [address] Phone Care Team Providers Care Power Plant Superintendent Name Role Phone Shakeel Arora MD Primary Care Provider [phone] Allergies Active Allergy Reactions Criticality Noted Date [...] Provider: Glenis Lara MD [address] [place] [address] Other: Problem Noted Date Diagnosed Date Mass [...] Right augmentation mammoplasty Multifocal ca T1cN1 ER+, NC+, Her2 negative, lymphatic permeation; AC/Taxol, RT, [facility] 2011 R breast, T3N1, ER+,NC+,Her2 negative, MIB 7%,lymphovascular and perineural invasion Bilateral [...] on file Legal Sex Female 5:41 AM SOLDERER DIPPER Gender Identity Not on file Sexual Orientation Not on file Occupation Industry Job Start Date Job End Date Not on file Not on file Not on file Not on file Not on file Not on file Not on file Not on file Last Filed Vital Signs Vital Sign Reading Time Taken Comments Blood Pressure 120/77 03/31/2017 8:02 AM SOLDERER DIPPER Pulse 82 03/31/2017 8:02 AM SOLDERER DIPPER Temperature 36.9 C (98.4 F) 03/31/2017 8:02 AM SOLDERER DIPPER Respiratory Rate 15 03/31/2017 8:02 AM SOLDERER DIPPER Oxygen Saturation 91% 05/05/2012 6:50 AM SOLDERER DIPPER Inhaled Oxygen Concentration - - Weight 73.3 kg (161 lb 8 oz) 03/31/2017 8:02 AM SOLDERER DIPPER Height 162.6 cm (5' 4) 03/31/2017 8:02 AM SOLDERER DIPPER Body Mass Index 27.72 03/31/2017 8:02 AM SOLDERER DIPPER Plan of Treatment Health Maintenance Due Date [...] series) 2034 Medical Devices Implanted Type Area Aluminum Welder Device Identifier Shelf Expiration Date Model / Serial / Lot Port Pwrprt Slim Chrnflx Cath 6fr [id number] - [id number] Implanted:Qty : 1 on 04/08/2012 by Olga Cano MD at [facility] Port Left: Subclavian CR BARD- ACCESS SYS 01/06/2014 [id number] / [id number] / [id number] Procedures Procedure Name Priority Date/Time Associated Diagnosis [...] Most Recently Relevant to Health Maintenance Insurance Advance Directives For more information, please contact: [phone] * Full Code (Latest Code Status on File) Date Activated Date Inactivated Comments 05/01/2012 4:30 PM 05/05/2012 3:14 PM * Full Code Date Activated Date Inactivated Comments 04/08/2012 9:32 AM 04/08/2012 1:42 PM * Full Code Date Activated Date Inactivated Comments 04/08/2012 8:49 AM 04/08/2012 9:32 AM Care Teams Power Plant Superintendent Relationship Specialty Start Date End Date Shakeel Arora MD [address] [place] [address] PCP - General 06/03/08
--- OUTSIDE RECORDS SUMMARY | 2024-10-21 18:54 | XMS_ITS ---
Author Organization [facility] Address [address] [place] [address] Care Team Providers Care Carton Making Machine Operator Name Role Phone Avril Tobar MD Unavailable [phone] Christiano Rosales MD Unavailable [phone] Shakeel Arora MD Primary Care Provider [phone] Mari Lofton MD Unavailable [phone] CyriBrian mares MD Unavailable Active Problems Problem [...] 04/14/2018 Assessment & Plan (04/14/2018 8:41 AM HIDE OR SKIN BUFFER): Warm compresses, Doxy 100mg BID PO for 1 week, Maxitrol lele at bedtime (QHS) both eyes (OU) for 1 week Warm compress 2-3 times a day 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 04/14/2018 Combined forms of age-related cataract of both e yes 04/14/2018 Assessment & Plan (04/14/2018 8:42 AM HIDE OR SKIN BUFFER): Asymptomatic, monitor Narrow angle glaucoma suspect of both eyes 04/14 Assessment & Plan (04/14/2018 8:43 AM HIDE OR SKIN BUFFER): Warned pt signs and Symptoms of angle closure Large CD both eyes (OU), borderline IOP Consult with Dr Champion 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 Nancy Avila, adjuvant radiation. Right augmentation mammoplasty Multifocal ca T1cN1 ER+, SD+, Her2 negative, lymphatic permeation; AC/Taxol, RT, [place] 2011 R breast, T3N1, ER+,SD+,Her2 negative, MIB 7%,lymphovascular and perineural invasion Bilateral mastectomies Assessment & Plan (07/27/2018 4:20 AM CDT): Breast cancer diagnosed in 2000. T3N1, ER/SD+, Stage III. AC + Taxol x 4 cycles (total brittney dose 420mg). Disease recurrence in R breast in 2011. Right mastectomy, XRT, Abraxane x 3 cycles, Exemestane x 5 years 1397-5723. -No evidence of disease -Continue to monitor [...] involvement. Treatment History: 06/2011-07/2011 RM-CHOP x 2, SD by PET 09/28/2011 BEAM Autologous SCT, CR by PET 12/2011 Rituxan x 2 doses 09/08/2017 CT scan with cecal mass and ileocolic adenopathy 09/29/2017-04/27/18 ABT-199 + Ibrutinib x 6 on 04/27/18-07/11/18 Ibrutinib, SD, dc'd due to toxicities 07/13/18- Rituxan/Revlimid -Recent [...] basilic Port removed in clinic 04/21/12 by [facility] Lovenox 60 BID Adenocarcinoma of cecum [...] Rosales MD 1 of 6 cycles started [id number] - [facility] - Lymphoma - Arm E - Ibrutinib / ABT-199 (ABT [id number] ) 8 04/27/2018 ibrutinib (IMBRUVICA)INV -[facility] ABT-199 (venetoclax) (/A [id number]) Therapy Complete Christiano Rosales MD 5 (6 [...]
--- OUTSIDE RECORDS SUMMARY | 2024-10-21 18:54 | XMS_ITS | Encounter Summary ---
Author Organization [facility] [employer] [facility] Address [address] [place] [address] Phone Care Team Providers Care Buffing Line Set Up Worker Name Role Phone Avirl Tobar MD Unavailable [phone] Christiano Rosales MD Unavailable [phone] Shakeel Arora MD Primary Care Provider [phone] Mari Lofton MD Unavailable [phone] Brian Rubi MD Unavailable [phone] Encounter Details Date Type Department Care Team [...] on file Legal Sex Female 2:43 AM TECHNICAL ARCHITECT Gender Identity Not on file Sexual Orientation [...] on filedocumented in this encounter Care Teams Buffing Line Set Up Worker Relationship Specialty Start Date End Date Shakeel Arora MD [address] [address] PCP - General Family Medicine 07/27/19 Avril Tobar MD Referring Physician Dermatology 03/03/19 Christiano Rosales MD [address] [address] Medical Oncologist/Physician Medical Oncology 03/03/19 Mari Lofton MD [address] [address] Medical Oncologist/Physician Medical Oncology 07/02/20 Brian Rubi MD [address] [address] Consulting Physician Diagnostic Radiology 07/03/20 documented as of this encounter
--- OUTSIDE RECORDS SUMMARY | 2024-10-21 18:54 | XMS_ITS | Encounter Summary ---
Author Organization [facility] Address [address] [place] [address] Phone Care Team Providers Care Conveyor System Operator Name Role Phone Shakeel Arora MD Primary Care Provider [phone] Christiano Rosales MD Primary Care Provider +[phone] Shakeel Arora MD Primary Care Provider +[phone] Christiano Rosales MD Primary Care Provider +[phone] Shakeel Arora MD Primary Care Provider [phone] Christiano Rosales MD Primary Care Provider +[phone] Shakeel Arora MD Primary Care Provider [phone] Christiano Rosales MD Primary Care Provider +06-09 [phone] Shakeel Arora MD Primary Care Provider [phone] Shakeel Arora MD Primary Care Provider [phone] Christiano Rosales MD Primary Care Provider +06-09 [phone] Shakeel Arora MD Primary Care Provider +[phone] Christiano Rosales MD Primary Care Provider +06-09 [phone] Shakeel Arora MD Primary Care Provider +[phone] Christiano Rosales MD Primary Care Provider +06-09 [phone] Christiano Rosales MD Primary Care Provider +06-09 [phone] Shakeel Arora MD Primary Care Provider [phone] Christiano Rosales MD Primary Care Provider +06-09 [phone] Shakeel Arora MD Primary Care Provider [phone] Shakeel Arora MD Primary Care Provider +[phone] Christiano Rosales MD Primary Care Provider +06-09 [phone] Shakeel Arora MD Primary Care Provider +[phone] Christiano Rosales MD Primary Care Provider +06-09 [phone] Shakeel Arora MD Primary Care Provider [phone] Avril Tobar MD Unavailable [phone] Christiano Rosales MD Unavailable [phone] Shakeel Arora MD Primary Care Provider +[phone] Mari Lofton MD Unavailable + [phone] CyriBrian mares MD Unavailable [phone] Encounter Details Date Type Department Care Team (Latest Contact Info) Description 02/06/2011 Orders Only [facility] Scanning, Provider Social History Tobacco Use Types Packs/Day Years Used Date Smoking Tobacco: Never Assessed Comments Unknown Sex and Gender Information Value Date Recorded Sex Assigned at Not on file Legal Sex Female 2:43 AM ANIMAL PATHOLOGIST Gender Identity Not on file Sexual Orientation [...] on filedocumented in this encounter Care Teams Conveyor System Operator Relationship Specialty Start Date End Date Shakeel Arora MD [address] [address] PCP - General 08/26/16 08/31/16 Christiano Rosales MD [address] [address] PCP - General 09/01/16 09/01/16 Shakeel Arora MD [email or web address] [address] PCP - General 09/02/16 09/02/16 [place] [address] [place] [address] PCP - General 09/03/16 09/16/16 Shakeel Arora MD [facility] [email or web address] [address] PCP - General 09/17/16 12/01/16 [place] [address] [place] [address] PCP - General 12/02/16 03/09/17 Shakeel Arora MD [email or web address] [address] PCP - General 03/10/17 06/08/17 Christiano Rosales MD [address] [address] PCP - General 06/09/17 09/05/17 Shakeel Arora MD [email or web address] [address] PCP - General 09/06/17 09/07/17 Shakeel Arora MD [email or web address] [address] PCP - General 09/08/17 09/08/17 Christiano Rosales MD [address] [address] PCP - General 09/09/17 09/09/17 Shakeel Arora MD [email or web address] [address] PCP - General 09/10/17 09/13/17 Christiano Rosales MD [address] [address] PCP - General 09/14/17 09/14/17 Shakeel Arora MD [address] [address] PCP - General 09/15/17 09/21/17 Christiano Rosales MD [address] [address] PCP - General 09/22/17 09/22/17 Christiano Rosales MD [address] [address] PCP - General 09/23/17 09/24/17 Shakeel Arora MD [email or web address] [address] PCP - General 09/25/17 09/26/17 Christiano Rosales MD [address] [address] PCP - General 09/27/17 09/27/17 Shakeel Arora MD [email or web address] [address] PCP - General 09/28/17 09/28/17 Shakeel Arora MD [email or web address] [address] PCP - General 09/29/17 09/29/17 Christiano Rosales MD [address] [address] PCP - General 09/30/17 09/30/17 Shakeel Arora MD [email or web address] [address] PCP - General 10/01/17 10/01/17 Christiano Rosales MD [address] [address] PCP - General 10/02/17 10/05/17 Shakeel Arora MD [email or web address] [address] PCP - General 10/06/17 07/26/19 Shakeel Arora MD [address] [address] PCP - General Family Medicine 07/27/19 Avril Tobar MD [address] [address] Referring Physician Dermatology 03/03/19 Christiano Rosales MD [address] [address] Medical Oncologist/[facility] Oncology 03/03/19 Mari Lofton MD [address] [address] Medical Oncologist/[facility] Medical Oncology 07/02/20 Brian Rubi MD [address] [address] Consulting Physician Diagnostic Radiology 07/03/20 documented as of this encounter
--- NOTE | 2024-10-21 19:52 | PC.NURSE ---
Splint placed on right leg. Patient educated on use of crutches by RN. Patient wheeled outside by RN for discharge home.
== END 2024-10-21 19:56 | disposition home or self-care (01) ==
PROVIDERS: Emergency Provider Student in an Organized Health Care Education/Training Program; PCP Family Medicine
DX: S92.351A Displaced fracture of fifth metatarsal bone, right foot, initial encounter for closed fracture (principal); E78.2 Mixed hyperlipidemia; E66.9 Obesity, unspecified; X50.9XXA Other and unspecified overexertion or strenuous movements or postures, initial encounter; Z87.440 Personal history of urinary (tract) infections; Z85.3 Personal history of malignant neoplasm of breast; Z85.830 Personal history of malignant neoplasm of bone; Z86.16 Personal history of COVID-19; Z68.29 Body mass index [BMI] 29.0-29.9, adult
CPT/HCPCS: 29515; 73610; 73630; 99284

== ENCOUNTER 2024-11-13 12:32 | Outpatient (CLI) | payer MEDICARE, OTHER, SELFPAY ==
--- NOTE | ~2024-11-13 | US_ITS ---
US venous doppler LE RT - 11/13/2024 14:05 CDT History: 64 years old Female with right lower extremity pain and swelling. Real-time sonographic images of the right lower extremity venous system were obtained. Color Doppler sonography and spectral waveform analysis were performed. No prior studies for comparison. The right sapheno-femoral junctions are patent. The right common femoral and posterior tibial veins are compressible and without evidence of echogenic thrombus. Deep venous thrombosis of the right fe moral and popliteal veins. Impression: Deep venous thrombosis of the right femoral and popliteal veins. Reviewed, dictated and finalized at location A. Impression: Deep venous thrombosis of the right femoral and popliteal veins.
--- OUTSIDE RECORDS SUMMARY | 2024-11-13 12:36 | XMS_ITS | Continuity of Care Document ---
Author Organization [facility] Address [address] [place] [address] [address] [place] [address] Phone Care Team Providers Care Welder Explosion Name Role Phone Sanchez OD, Jose Unavailable Unavailable Procedures Procedure Date Office/outpatient Visit, Est Remove Foreign Body From Eye Advance Directives Directive Yes / No Effective Date File Name No Information Encounters Encounter Description Practice Location Reason(s) For Visit Diagnoses Date Provider Providers Copied on Encounter Office/outpat ient Visit, Est [facility], [address] [place] [address] [address], [place], [place], [id number], tel:[phone] [facility] No Information Jul-0 4-201 0 Sanchez OD Jose. [address] , [address], [place], [place], [facility], [place]. tel:[phone] [facility], [address] [place] [address] [address], [place], [place], [id number], tel:[phone] [facility] No Information 7-201 0 Sanchez OD Jose. [address] , [address], [place], [address], [place]. tel:[phone] Family History Family Member Type Diagnosis Age At Onset No Information Payers Payer name Insurance type Covered libertarian ID Authorhirama rito(s) [facility] CI [id number] Social History Type Description Quantity Date Captured [...]
--- OUTSIDE RECORDS SUMMARY | 2024-11-13 12:36 | XMS_ITS | Referral Summary ---
Author Organization [facility] Address [address] [place] [address] Care Team Providers Care Lab Engineer Name Role Phone Avril Tobar MD Unavailable [phone] Christiano Rosales MD Unavailable [phone] Shakeel Arora MD Primary Care Provider [phone] Mari Lofton MD Unavailable [phone] Brian Rubi MD Unavailable [phone] Encounters Date Type Department Care Team Description 09/28/2024 Documentation [facility] Oncology [address] [place] [address] Floor 6 [place] [address] Prudence Haskins RMSandy 09/27/2024 Documentation [facility] Oncology [address] [place] [address] Floor 6 [place] [address] Nati Crespo, RN 09/26/2024 Orders Only [facility] Oncology [address] [place] [address] Floor 8 [place] [address] Phyllis Greer RN 09/26/2024 3:00 PM CDT Infusion [facility] - Infusion [address] [place] [address] Floor 5 [place] [address] Malignant neoplasm of right breast in female, estrogen receptor positive, unspecified site of breast (HCC) (Primary Dx); Malignant neoplasm metastatic to bone (HCC) 09/26/2024 1:00 PM CDT Lab [facility] - Lab Collection [address] [facility] Floor 5 [place] [address] Malignant neoplasm metastatic to bone (HCC); Malignant neoplasm of right breast in female, estrogen receptor positive, unspecified site of breast (HCC); 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) 09/26/2024 2:00 PM CDT Office Visit [facility] Oncology [address] [place] [address] Floor 8 [place] [address] Mari Lofton MD Malignant neoplasm of right breast in female, estrogen receptor positive, unspecified site of breast (HCC) (Primary Dx); Malignant neoplasm metastatic to bone (HCC); 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); Malignant neoplasm of female breast, unspecified estrogen receptor status, unspecified laterality, unspecified site of breast (HCC) 08/23/2024 Documentation [facility] Oncology [address] [place] [address] 6 [place] [address] Prudence Haskins RMA 08/23/2024 Orders Only [facility] Oncology [address] [place] [address] 6 [place] [address] Prudence Haskins, YIFAN from Last 3 Months [...] with simethicone-diph enhydramine-lido royce (MAGIC MOUTHWASH) suspension 1-7-4Tqimeaniyko :Chemotherapy-In duced Mucositis Swish and spit 15 [...] 04/14/2018 Assessment & Plan (04/14/2018 8:41 AM PETROPHYSICIST): Warm compresses, Doxy 100mg BID PO for 1 week, Maxitrol lele at bedtime (QHS) both eyes (OU) for 1 week Warm compress 2-3 times a day 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 Nancy Avila, adjuvant radiation. Right augmentation mammoplasty Multifocal ca T1cN1 ER+, [place]+, Her2 negative, lymphatic permeation; AC/Taxol, RT, [place] 2011 R breast, T3N1, ER+,KY+,Her2 negative, MIB 7%,lymphovascular and perineural invasion Bilateral mastectomies Assessment & Plan (07/27/2018 4:20 AM CDT): Breast cancer diagnosed in 2000. T3N1, ER/KY+, Stage III. AC + Taxol x 4 cycles (total brittney dose 420mg). Disease recurrence in R breast in 2011. Right mastectomy, XRT, Abraxane x 3 cycles, Exemestane x 5 years [phone]. -No evidence of disease -Continue to monitor [...] involvement. Treatment History: 06/2011-07/2011 RM-CHOP x 2, [place] by PET 09/28/2011 BEAM Autologous SCT, CR by PET 12/2011 Rituxan x 2 doses 09/08/2017 CT scan with cecal mass and ileocolic adenopathy 09/29/2017-04/27/18 ABT-199 + Ibrutinib x 6 on 04/27/18-07/11/18 Ibrutinib, [place], dc'd due to toxicities 07/13/18- Rituxan/Revlimid -Recent [...] on file Legal Sex Female 2:43 AM PETROPHYSICIST Gender Identity Not on file Sexual Orientation [...] 162 cm (5' 3.78) 06/20/2024 7:41 AM PETROPHYSICIST Body Mass Index 30.94 06/20/2024 7:41 AM PETROPHYSICIST Plan of Treatment Not on file Procedures [...] of breast (HCC) COLONOSCOPY 04/16/2020 10:07 AM PETROPHYSICIST from Last 3 Months or Most Recently [...] MD LAB BLOOD ORDERABLES Final R esult [facility] Department of Laboratories [place], [place] [id number] * (ABNORMAL) Differential, auto (09/26/2024 12:26 PM CDT) Pathologist [facility] Neutrophil abs 1.11(L) 1.50 - 6.50 K/cumm Comment:Testing performed by : [facility] Cancer [facility], [address] [place] [phone] Lymphocyte abs 0.83 0.80 - 3.30 K/cumm JENNIFER CASSIDY Comment:Testing performed by : [facility], [address] [place] [phone] Monocyte abs 0.25 0.20 - 0.80 K/cumm [facility] Comment:Testing performed by : [facility], [address] [place] [phone] Eosinophil abs 0.01 0.00 - 0.50 K/cumm [facility] Comment:Testing performed by : [facility], [address] [place] [phone] Basophil abs 0.08 0.00 - 0.10 K/cumm [facility] Comment:Testing performed by : [facility], [address] [place] [phone] Neutrophil pct 48.8 % [facility] Comment: Interpretive Data Percent cell count reference ranges are not reported, since discordance with absolute values may lead to misinterpretation of CBC data. Current Interpretive Data was last revised on 2017. Testing performed by: [facility], [address] [place] [phone] Lymphocyte pct 36.4 % [facility] Comment: Interpretive Data Percent cell count reference ranges are not reported, since discordance with absolute values may lead to misinterpretation of CBC data. Current Interpretive Data was last revised on 2017. Testing performed by: [facility], [address] [place] [phone] Monocyte pct 10.9 % [facility] Comment: Interpretive Data Percent cell count reference ranges are not reported, since discordance with absolute values may lead to misinterpretation of CBC data. Current Interpretive Data was last revised on 2017. Testing performed by: [facility], [address] [place] [phone] Eosinophil pct 0.6 % [facility] Comment: Interpretive Data Percent cell count reference ranges are not reported, since discordance with absolute values may lead to misinterpretation of CBC data. Current Interpretive Data was last revised on 2017. Testing performed by: [facility], [address] [place] [phone] Basophil pct 3.3 % [facility] Comment: Interpretive Data Percent cell count reference ranges are not reported, since discordance with absolute values may lead to misinterpretation of CBC data. Current Interpretive Data was last revised on 2017. Testing performed by: [facility], [address] [place] [address] Blood 09/26/2024 12:2 6 PM CDT 09/26/2024 12:30 PM CDT Christiano Rosales MD LAB BLOOD ORDERABLES Final R esult [facility] [place] [address] * (ABNORMAL) CBC with auto differential (09/26/2024 12:26 PM CDT) WBC 2.27(L) 3.80 - 9.90 K/cumm Comment:Testing performed by : [facility], [address] [place] [address] Hgb 13.3 11.9 - 15.5 g/dL CERARCHANA CASSIDY Comment:Testing performed by : [facility], [address] [place] [address] Hct 38.6 35.6 - 45.5 % [facility]ER[facility]ANA [facility] Comment:Testing performed by : [facility], [address] [place] [address] Plt 193 150 - 400 K/cumm CERARCHANA [facility] Comment:Testing performed by : [facility], [address] [place] [address] MPV 7.3 6.8 - 10.4 fL CERARCHANA [facility] Comment:Testing performed by : [facility], [address] [place] [address] RBC 3.68(L) 3.90 - 5.20 M/cumm CERARCHANA [facility] Comment:Testing performed by : [facility], [address] [place] [address] MCV 104.9(H) 81.3 - 96.4 fL [facility] Comment:Testing performed by : [facility], [address] [place] [address] MCH 36.1(H) 27.1 - 33.3 pg [facility]ENNIFER [facility] Comment:Testing performed by : [facility], [address] [place] [address] MCHC 34.4 32.3 - 35.7 g/dL JENNIFER [facility] Comment:Testing performed by : [facility], [address] [place] [address] RDW CV 14.1 11.1 - 14.9 % JENNIFER [facility] Comment:Testing performed by : [facility], [address] [place] [address] NRBC abs 0.00 0.00 - 0.01 K/cumm [facility]ENN[facility]ER [facility] Comment:Testing performed by : [facility], [address] [place] [address] Blood 09/26/2024 12:2 6 PM CDT 09/26/2024 12:30 PM CDT Christiano Rosales MD LAB BLOOD ORDERABLES Final R esult Performing Organization Address City/[facility] Co de Phone Number [facility] [place] [address] * (ABNORMAL) Cancer antigen 15-3 (09/26/2024 12:26 [...] BLOOD ORDERABLES Final Result Performing Organization Address City/[facility] [address]/[facility] Co de Phone Number [facility] [place] [address] * Vitamin D 25 hydroxy (09/26/2024 12:26 PM CDT) Pathologist [facility] Vitamin D 25-OH 37 30 - 80 ng/mL Blood 09/26/2024 12:2 6 PM CDT 09/26/2024 12:35 PM CDT Nati Ocampo PRIMARY HEALTH ORGANISATION MANAGER LAB BLOOD ORDERABLES Final Result Performing Organization Address [facility] [address]/[facility] Co de Phone Number JENNIFER [facility] [place] [address] * Lactate dehydrogenase (LD) (09/26/2024 12:26 PM CDT) [facility] Lactate dehydrogenase (LDH) 242 100 - 250 Units/L Blood 09/26/2024 12:2 6 PM CDT 09/26/2024 12:35 PM CDT Christiano Rosales MD LAB BLOOD ORDERABLES Final R esult Performing Organization Address [facility] [address]/[facility] de Phone Number JENNIFER [facility] [place] [address] * CEA (09/26/2024 12:26 PM CDT) [facility] CEA 2.0 <=5.0 ng/mL Comment: Interpretive Data: Reference Range: Non-Smokers: 0.0 5.0 ng/mL Smokers: 0.0 6.5 ng/mL The Prabhakar CEA assay procedure was used. Results from different manufacturers or methods may not be comparable. Serial testing should be performed using the same method. Current interpretive data was last revised 2021. Blood 09/26/2024 12:2 6 PM CDT 09/26/2024 12:56 PM CDT Nati Ocampo PRIMARY HEALTH ORGANISATION MANAGER LAB BLOOD ORDERABLES Final Result Performing Organization Address [facility] [address]/[facility] Co de Phone Number [facility] [place] [address] * Beta 2 microglobulin, serum (09/26/2024 12:26 PM CDT) Pathologist [facility] Beta 2 Microglobulin, Serum 1.20 1.00 - 2.50 mg/L Comment: Interpretive Data The Prabhakar Beta-2 microglobulin assay procedure was used. Results from different manufacturers or methods may not be comparable. Serial testing should be performed using the same method. Blood 09/26/2024 12:2 6 PM CDT 09/26/2024 12:56 PM CDT Christiano Rosales MD LAB BLOOD ORDERABLES Final R esult [facility] [place] [address] * Comprehensive metabolic panel (09/26/2024 12:26 PM CDT) Pathologist [facility] Sodium 141 135 - 145 mmol/L Potassium, pl 3.7 3.3 - 4.9 mmol/L [facility] Chloride 103 97 - 110 mmol/L [facility] CO2 29 22 - 32 mmol/L [facility] Anion gap 9 2 - 15 mmol/L [facility] BUN 15 6 - 25 mg/dL [facility] Creatinine 0.98 0.60 - 1.10 mg/dL [facility] Glucose 106 70 - 199 mg/dL [facility] Comment: Interpretive Data Fasting glucose >/= 126 [...] 2022. Calcium 9.6 8.5 - 10.3 mg/dL [facility] Bilirubin, total 0.4 0.1 - 1.2 mg/dL [facility] Protein, pl 7.6 6.5 - 8.5 g/dL [facility] Albumin 4.7 3.5 - 5.0 g/dL [facility] Alk phos 65 40 - 130 Units/L [facility] ALT 17 7 - 45 Units/L [facility] AST 22 10 - 45 Units/L [facility] Blood 09/26/2024 12:2 6 PM CDT 09/26/2024 12:35 PM CDT us Christiano Rosales MD LAB BLOOD ORDERABLES Final R esult [facility] [place] [address] * COLONOSCOPY (04/16/2020 10:07 AM PETROPHYSICIST) Anatomical Region Laterality Modality Other Narrative Procedure Note Tony Peña MD - 04/16/2020 10:07 AM CST [facility] Patient Name: Ella Herrera Procedure Date: 04/16/2020 10:07 AM Date of : 1960 Admit Type: Outpatient Age: 59 Gender: Female Attending MD: Tony Peña M.D. Room: [facility] ENDOSCOPY ROOM 3 Note Status: [...] bowel preparation was evaluated using the BBPS ([place] Bowel Preparation Scale) with scores of: Right [...] On: 04/16/2020 10:07 AM Recognized by the [place] for promoting quality in endoscopy us Tony Peña MD ENDOSCOPY PROCEDURES Fin al Result from Last 3 Months or Most Recently Relevant to Health Maintenance Insurance MEDICARE [facility] ANTHEM ACCESS CHOICE [facility] CHOICE PLUS MEDICARE [facility] Address: [address] [address] [place] [address] [facility] Advance Directives For more information, please contact: [phone] * Full Code (Latest Code Status on File) Date Activated Date Inactivated Comments 2020 11:25 AM 04/27/2020 5:00 AM * Full Code Date Activated Date Inactivated Comments 04/16/2020 9:42 AM 04/16/2020 3:34 PM * Full Code Date Activated Date Inactivated Comments 07/27/2018 2:25 AM 07/29/2018 9:03 PM Care Teams Lab Engineer Relationship Specialty Start Date End Date Shakeel Arora MD [address] [address] PCP - General Family Medicine 07/27/19 Avril Tobar MD Referring Physician Dermatology 03/03/19 Christiano Rosales MD [address] [address] Medical Oncologist/Geomagnetist Medical Oncology 03/03/19 Mari Lofton MD [address] [address] Medical Oncologist/Geomagnetist Medical Oncology 07/02/20 Brian Rubi MD [address] [address] Consulting Physician Diagnostic Radiology 07/03/20
--- OUTSIDE RECORDS SUMMARY | 2024-11-13 12:36 | XMS_ITS | Encounter Summary ---
Author Organization [facility] [employer] [facility] Address [address] [place] [address] Phone Care Team Providers Care Manager Package Name Role Phone Avril Tobar MD Unavailable [phone] Christiano Rosales MD Unavailable Shakeel Arora MD Primary Care Provider [phone] Mari Lofton MD Unavailable [phone] Brian Rubi MD Unavailable [phone] Encounter Details Date Type Department Care Team (Late st Contact Info) Description 01/04/2024 Social Work [facility] Oncology [address] [place] [address] Sonia Rothman LCSW Social History Tobacco Use Types Packs/Day Years Used Date Smoking Tobacco: Never Passive Smoke Exposure: Never Smokeless Tobacco: Never Alcohol Use Standard Drinks/Week Comments Not Currently 0 (1 standard drink = 0.6 oz pur e alcohol) social Comments No Sex and Gender Information Value Date Recorded Sex Assigned at Not on file Legal Sex Female 2:43 AM PANEL MONITOR Gender Identity Not on file Sexual Orientation Not on file documented as of this encounter Plan of Treatment Not on file documented as of this encounter Visit Diagnoses Not on filedocumented in this encounter Care Teams Manager Package Relationship Specialty Start Date End Date Shakeel Arora MD [address] [address] PCP - General Family Medicine 07/27/19 Avril Tobar MD Referring Physician Dermatology 03/03/19 Christiano Rosalse MD [address] [address] Medical Oncologist/Solution Design Engineer Medical Oncology 03/03/19 Mari Lofton MD [address] [address] Medical Oncologist/Solution Design Engineer Medical Oncology 07/02/20 Brian Rubi MD [address] [address] Consulting Physician Diagnostic Radiology 07/03/20 documented as of this encounter
--- OUTSIDE RECORDS SUMMARY | 2024-11-13 12:36 | XMS_ITS | Clinical Summary ---
Author Organization [facility] Address [address] [place] [address] Phone Care Team Providers Care Outbound Telemarketing Representative Name Role Phone Shakeel Arora MD Primary Care Provider [phone] Allergies Active Allergy Reactions Criticality Noted Date [...] Provider: Glenis Lara MD [address] [place] [address] Other: Problem Noted Date Diagnosed Date Mass [...] Right augmentation mammoplasty Multifocal ca T1cN1 ER+, [place]+, Her2 negative, lymphatic permeation; AC/Taxol, RT, [facility] 2011 R breast, T3N1, ER+,[place]+,Her2 negative, MIB 7%,lymphovascular and perineural invasion Bilateral [...] on file Legal Sex Female 5:41 AM CONTAINER REPAIRER Gender Identity Not on file Sexual Orientation Not on file Occupation Industry Job Start Date Job End Date Not on file Not on file Not on file Not on file Not on file Not on file Not on file Not on file Last Filed Vital Signs Vital Sign Reading Time Taken Comments Blood Pressure 120/77 03/31/2017 8:02 AM CONTAINER REPAIRER Pulse 82 03/31/2017 8:02 AM CONTAINER REPAIRER Temperature 36.9 C (98.4 F) 03/31/2017 8:02 AM CONTAINER REPAIRER Respiratory Rate 15 03/31/2017 8:02 AM CONTAINER REPAIRER Oxygen Saturation 91% 05/05/2012 6:50 AM CONTAINER REPAIRER Inhaled Oxygen Concentration - - Weight 73.3 kg (161 lb 8 oz) 03/31/2017 8:02 AM CONTAINER REPAIRER Height 162.6 cm (5' 4) 03/31/2017 8:02 AM CONTAINER REPAIRER Body Mass Index 27.72 03/31/2017 8:02 AM CONTAINER REPAIRER Plan of Treatment Health Maintenance Due Date [...] - T d or Tdap) 05/05/2022 05/05/2012 OSTEOPOROSIS SCREENING 2024 02/06/2011 INFLUENZA VACCINE (#1) 2024 , 03/30/2018, 03/10/2017, Additional history exists COLORECTAL SCREENING 04/16/2030 04/16/2020, 03/07/2012, 03/07/2012 Colorectal Cancer Screening 04/16/2030 RSV VACCINE (60+ or ) (1 - 1-dose 75+ series) 2034 Medical Devices Implanted Type Area Manager Of Compensation Device Identifier Shelf Expiration Date Model / Serial / Lot Port Pwrprt Slim Chrnflx Cath 6fr [id number] - [id number] Implanted:Qty : 1 on 04/08/2012 by Olga Cano MD at [facility] Port Left: Subclavian CR BARD- ACCESS SYS 01/06/2014 [id number] / [id number] / [id number] Procedures Procedure Name Priority Date/Time Associated Diagnosis [...] Advance Directives For more information, please contact: [phone] * Full Code (Latest Code Status on File) Date Activated Date Inactivated Comments 05/01/2012 4:30 PM 05/05/2012 3:14 PM * Full Code Date Activated Date Inactivated Comments 04/08/2012 9:32 AM 04/08/2012 1:42 PM * Full Code Date Activated Date Inactivated Comments 04/08/2012 8:49 AM 04/08/2012 9:32 AM Care Teams Outbound Telemarketing Representative Relationship Specialty Start Date End Date Shakeel Arora MD [address] [place] [id number] PCP - General 06/03/08
--- OUTSIDE RECORDS SUMMARY | 2024-11-13 12:36 | XMS_ITS | Clinical Summary ---
Author Organization [facility] Address [facility] [place] [address] Care Team Providers Care Law Examiner Name Role Phone Unavailable Primary Care Provider Unavailabl e Social History Tobacco Use Types Packs/Day Years Used Date Smoking Tobacco: Never Assessed Comments Unknown Sex and Gender Information Value Date Recorded Sex Assigned at Not on file Legal Sex Female 5:15 PM CDT Gender Identity Not on file Sexual Orientation Not on file Plan of Treatment Health Maintenance Due Date Last Done Comments Colorectal Cancer Screening Colonoscopy (10 Years) 1960 Hepatitis C 1977 DTaP, Tdap and Td Vaccines ( 1 - Tdap) 1978 Mammogram Screening 1999 Pneumococcal Vaccine: 50+ Ye ars (1 of 1 - PCV) 2009 Zoster Vaccines (1 of 2) 2009 COVID-19 Vaccine (2023-2 5 season) 2024 Dexa Scan (General) 2024 RSV Immunization or 60+ Years (1 - 1-dose 75+ series) 2034 Meningococcal B Vaccine Aged Out No l onger eligible based on patient's age to complete this topic Meningococcal Vaccine Aged Out No robin kori eligible based on patient's age to complete this topic RSV Immunizations Under 20 Months Aged Out No longer eligible based on patient's age to complete this topic
--- OUTSIDE RECORDS SUMMARY | 2024-11-13 12:36 | XMS_ITS | Encounter Summary ---
Author Organization [facility] Address [address] [place] [address] Phone Care Team Providers Care Casing Worker Name Role Phone Avril Tobar MD Unavailable [phone] Christiano Rosales MD Unavailable [phone] Shakeel Arora MD Primary Care Provider [phone] Mari Lofton MD Unavailable [phone] Brian Rubi MD Unavailable [phone] Encounter Details Date Type Department Care Team [...] on file Legal Sex Female 2:43 AM CONCRETE FOREMAN Gender Identity Not on file Sexual Orientation [...] on filedocumented in this encounter Care Teams Casing Worker Relationship Specialty Start Date End Date Shakeel Arora MD [address] [address] PCP - General Family Medicine 07/27/19 Avril Tobar MD Referring Physician Dermatology 03/03/19 Christiano Rosales MD [address] [address] Medical Oncologist/Drug Inspector Medical Oncology 03/03/19 Mari Lofton MD [address] [address] Medical Oncologist/Drug Inspector Medical Oncology 07/02/20 Brian Rubi MD [address] [address] Consulting Physician Diagnostic Radiology 07/03/20 documented as of this encounter
--- OUTSIDE RECORDS SUMMARY | 2024-11-13 12:36 | XMS_ITS | Clinical Summary ---
Author Organization [facility] Address [address] [place] [address] Care Team Providers Care Wire Annealer Name Role Phone Avril Tobar MD Unavailable [phone] Christiano Rosales MD Unavailable [phone] Shakeel Arora MD Primary Care Provider [phone] Mari Lofton MD Unavailable [phone] CyriBrian mares MD Unavailable [phone] Allergies Active Allergy Reactions Criticality Noted Date [...] with simethicone-diph enhydramine-lido royce (MAGIC MOUTHWASH) suspension [id number] :Chemotherapy-In duced Mucositis Swish and spit 15 [...] 04/14/2018 Assessment & Plan (04/14/2018 8:41 AM HOME TEACHING GRADES 9 THRU 12 TEACHER): Warm compresses, Doxy 100mg BID PO for 1 week, Maxitrol lele at bedtime (QHS) both eyes (OU) for 1 week Warm compress 2-3 times a day 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 04/14/2018 Combined forms of age-related cataract of both e yes 04/14/2018 Assessment & Plan (04/14/2018 8:42 AM HOME TEACHING GRADES 9 THRU 12 TEACHER): Asymptomatic, monitor Narrow angle glaucoma suspect of both eyes 04/14 Assessment & Plan (04/14/2018 8:43 AM HOME TEACHING GRADES 9 THRU 12 TEACHER): Warned pt signs and Symptoms of angle closure Large CD both eyes (OU), borderline IOP Consult with Dr Champion 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 Nancy Avila, adjuvant radiation. Right augmentation mammoplasty Multifocal ca T1cN1 ER+, WA+, Her2 negative, lymphatic permeation; AC/Taxol, RT, Fareston 2011 R breast, T3N1, ER+,WA+,Her2 negative, MIB 7%,lymphovascular and perineural invasion Bilateral mastectomies Assessment & Plan (07/27/2018 4:20 AM CDT): Breast cancer diagnosed in 2000. T3N1, ER/WA+, Stage III. AC + Taxol x 4 cycles (total brittney dose 420mg). Disease recurrence in R breast in 2011. Right mastectomy, XRT, Abraxane x 3 cycles, Exemestane x 5 years 6101-9849. -No evidence of disease -Continue to monitor [...] involvement. Treatment History: 06/2011-07/2011 RM-CHOP x 2, WA by PET 09/28/2011 BEAM Autologous SCT, CR by PET 12/2011 Rituxan x 2 doses 09/08/2017 CT scan with cecal mass and ileocolic adenopathy 09/29/2017-04/27/18 ABT-199 + Ibrutinib x 6 on 04/27/18-07/11/18 Ibrutinib, WA, dc'd due to toxicities 07/13/18- Rituxan/Revlimid -Recent [...] Type Department Care Team Description 09/28/2024 Documentation [facility] [address] [place] [address] 6 [place] [address] Prudence Haskins RMA 09/27/2024 Documentation [facility] [address] [place] [address] 6 [place] [address] Nati Crespo RN 09/26/2024 3:00 PM CDT Infusion [facility] - Infusion [address] [place] [address] Floor 5 [place] [address] Malignant neoplasm of right breast in female, estrogen receptor positive, unspecified site of breast (HCC) (Primary Dx); Malignant neoplasm metastatic to bone (HCC) 09/26/2024 2:00 PM CDT Office Visit [facility] [address] [place] [address] 8 [place] [address] Mari Lofton MD Malignant neoplasm of right breast in female, estrogen receptor positive, unspecified site of breast (HCC) (Primary Dx); Malignant neoplasm metastatic to bone (HCC); 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); Malignant neoplasm of female breast, unspecified estrogen receptor status, unspecified laterality, unspecified site of breast (HCC) 09/26/2024 1:00 PM CDT Lab [facility] - Lab Collection [address] [place] [address] 5 [place] [address] Malignant neoplasm metastatic to bone (HCC); Malignant neoplasm of right breast in female, estrogen receptor positive, unspecified site of breast (HCC); 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 [address] [phone] Prudence Haskins RMA 08/23/2024 Orders Only [facility] [address] [address] Prudence Haskins, YIFAN from Last 3 Months [...] on file Legal Sex Female 2:43 AM HOME TEACHING GRADES 9 THRU 12 TEACHER Gender Identity Not on file Sexual Orientation [...] 162 cm (5' 3.78) 06/20/2024 7:41 AM HOME TEACHING GRADES 9 THRU 12 TEACHER Body Mass Index 30.94 06/20/2024 7:41 AM HOME TEACHING GRADES 9 THRU 12 TEACHER Plan of Treatment Health Maintenance Due Date [...] of breast (HCC) COLONOSCOPY 04/16/2020 10:07 AM HOME TEACHING GRADES 9 THRU 12 TEACHER from Last 3 Months or Most Recently [...] MD LAB BLOOD ORDERABLES Final R esult [facility] Department [place] [address] * (ABNORMAL) Differential, auto (09/26/2024 12:26 PM CDT) Neutrophil abs 1.11(L) 1.50 - 6.50 K/cumm Comment:Testing performed by : [facility], [address] [place] [phone] Lymphocyte abs 0.83 0.80 - 3.30 K/cumm [facility] Comment:Testing performed by : [facility], [address] [place] [phone] Monocyte abs 0.25 0.20 - 0.80 K/cumm [facility]ER [facility] Comment:Testing performed by : [facility], [address] [place] [phone] Eosinophil abs 0.01 0.00 - 0.50 K/cumm [facility] Comment:Testing performed by : [facility], [address] [place] [phone] Basophil abs 0.08 0.00 - 0.10 K/cumm [facility] Comment:Testing performed by : [facility], [address] [place] [phone] Neutrophil pct 48.8 % [facility] Comment: Interpretive Data Percent cell count reference ranges are not reported, since discordance with absolute values may lead to misinterpretation of CBC data. Current Interpretive Data was last revised on 2017. Testing performed by: [facility], [address] [place] [address] Lymphocyte pct 36.4 % [facility] Comment: Interpretive Data Percent cell count reference ranges are not reported, since discordance with absolute values may lead to misinterpretation of CBC data. Current Interpretive Data was last revised on 2017. Testing performed by: [facility], [address] [place] [address] Monocyte pct 10.9 % [facility] Comment: Interpretive Data Percent cell count reference ranges are not reported, since discordance with absolute values may lead to misinterpretation of CBC data. Current Interpretive Data was last revised on 2017. Testing performed by: [facility], [address] [place], [place] [phone] Eosinophil pct 0.6 % [facility] Comment: Interpretive Data Percent cell count reference ranges are not reported, since discordance with absolute values may lead to misinterpretation of CBC data. Current Interpretive Data was last revised on 2017. Testing performed by: [facility], [address] [place] [phone] Basophil pct 3.3 % [facility] Comment: Interpretive Data Percent cell count reference ranges are not reported, since discordance with absolute values may lead to misinterpretation of CBC data. Current Interpretive Data was last revised on 2017. Testing performed by: [facility], [address] [place] [phone] Blood 09/26/2024 12:2 6 PM CDT 09/26/2024 12:30 PM CDT Christiano Rosales MD LAB BLOOD ORDERABLES Final R esult [facility] Department [place] [address] * (ABNORMAL) CBC with auto differential (09/26/2024 12:26 PM CDT) WBC 2.27(L) 3.80 - 9.90 K/cumm Comment:Testing performed by : [facility], [address] [place] [address] Hgb 13.3 11.9 - 15.5 g/dL CERARCH[facility] Comment:Testing performed by : [facility], [address] [place] [address] Hct 38.6 35.6 - 45.5 % [facility] Comment:Testing performed by : [facility], [address] [place] [address] Plt 193 150 - 400 K/cumm [facility]ERARCH[facility] Comment:Testing performed by : [facility], [address] [place] [address] MPV 7.3 6.8 - 10.4 fL [facility]ERARCH[facility] Comment:Testing performed by : [facility], [address] [place] [address] RBC 3.68(L) 3.90 - 5.20 M/cumm [facility] Comment:Testing performed by : [facility], [address] [place] [address] MCV 104.9(H) 81.3 - 96.4 fL [facility]ERARCH[facility] Comment:Testing performed by : [facility], [address] [place] [address] MCH 36.1(H) 27.1 - 33.3 pg [facility] Comment:Testing performed by : [facility], [address] [place] [address] MCHC 34.4 32.3 - 35.7 g/dL [facility] Comment:Testing performed by : [facility], [address] [place] [phone] RDW CV 14.1 11.1 - 14.9 % [facility] Comment:Testing performed by : [facility], [address] [place] [phone] NRBC abs 0.00 0.00 - 0.01 K/cumm [facility] Comment:Testing performed by : [facility], [address] [place] [phone] Blood 09/26/2024 12:2 6 PM CDT 09/26/2024 12:30 PM CDT Christiano Rosales MD LAB BLOOD ORDERABLES Final R esult Performing Organization Address City/[facility] Co de Phone Number [facility] Department [place] [address] * (ABNORMAL) Cancer antigen 15-3 (09/26/2024 12:26 [...] BLOOD ORDERABLES Final Result Performing Organization Address City/[facility]/ZIP Co de Phone Number [facility] Department [place] [address] * Vitamin D 25 hydroxy (09/26/2024 12:26 PM CDT) Vitamin D 25-OH 37 30 - 80 ng/mL Blood 09/26/2024 12:2 6 PM CDT 09/26/2024 12:35 PM CDT Nati Ocampo TAB BUILDER LAB BLOOD ORDERABLES Final Result Performing Organization Address City/[facility] Co de Phone Number [facility] Department [place] [address] * Lactate dehydrogenase (LD) (09/26/2024 12:26 PM CDT) Lactate dehydrogenase (LDH) 242 100 - 250 Units/L Blood 09/26/2024 12:2 6 PM CDT 09/26/2024 12:35 PM CDT Christiano Rosales MD LAB BLOOD ORDERABLES Final R esult Performing Organization Address [facility] [place] [address] * CEA (09/26/2024 12:26 PM CDT) Pathologist [facility] CEA 2.0 <=5.0 ng/mL Comment: Interpretive Data: Reference Range: Non-Smokers: 0.0 5.0 ng/mL Smokers: 0.0 6.5 ng/mL The Prabhakar CEA assay procedure was used. Results from different manufacturers or methods may not be comparable. Serial testing should be performed using the same method. Current interpretive data was last revised 2021. Blood 09/26/2024 12:2 6 PM CDT 09/26/2024 12:56 PM CDT Nati Ocampo TAB BUILDER LAB BLOOD ORDERABLES Final Result Performing Organization Address [facility] Co de Phone Number [facility] [place] [address] * Beta 2 microglobulin, serum (09/26/2024 12:26 [...] MD LAB BLOOD ORDERABLES Final R esult [facility] Department [place] [address] * Comprehensive metabolic panel (09/26/2024 12:26 PM CDT) Sodium 141 135 - 145 mmol/L Potassium, pl 3.7 3.3 - 4.9 mmol/L [facility] Chloride 103 97 - 110 mmol/L [facility] CO2 29 22 - 32 mmol/L [facility] Anion gap 9 2 - 15 mmol/L [facility] BUN 15 6 - 25 mg/dL [facility] Creatinine 0.98 0.60 - 1.10 mg/dL [facility] Glucose 106 70 - 199 mg/dL [facility] Comment: Interpretive Data Fasting glucose >/= [...] 2022. Calcium 9.6 8.5 - 10.3 mg/dL [facility] Bilirubin, total 0.4 0.1 - 1.2 mg/dL [facility] Protein, pl 7.6 6.5 - 8.5 g/dL [facility] Albumin 4.7 3.5 - 5.0 g/dL [facility] Alk phos 65 40 - 130 Units/L [facility] ALT 17 7 - 45 Units/L [facility] AST 22 10 - 45 Units/L [facility] Blood 09/26/2024 12:2 6 PM CDT 09/26/2024 12:35 PM CDT us Christiano Rosales MD LAB BLOOD ORDERABLES Final R esult [facility] Department [place] [address] * COLONOSCOPY (04/16/2020 10:07 AM HOME TEACHING GRADES 9 THRU 12 TEACHER) Anatomical Region Laterality Modality Other Narrative Procedure Note Tony Peña MD - 04/16/2020 10:07 AM C[facility] Patient Name: Ella Herrera Procedure Date: 04/16/2020 10:07 AM Date of : 1960 Admit Type: Outpatient Age: 59 Gender: Female Attending MD: Tony Peña M.D. Room: [facility] ENDOSCOPY ROOM 3 Note Status: Finalized Procedure: [...] bowel preparation was evaluated using the BBPS (Calvert Bowel Preparation Scale) with scores of: Right [...] On: 04/16/2020 10:07 AM Recognized by the [place] [employer] for promoting quality in endoscopy Tony Peña MD ENDOSCOPY PROCEDURES Fin al Result from Last 3 Months or Most Recently Relevant to Health Maintenance Insurance MEDICARE [facility] COUNTS INCLUDE 234 BEDS AT THE [facility] ACCESS CHOICE [facility]PPO Address: [address] [address] [place] [address] MEDICARE [facility] Advance Directives For more information, please contact: [phone] * Full Code (Latest Code Status on File) Date Activated Date Inactivated Comments 2020 11:25 AM 04/27/2020 5:00 AM * Full Code Date Activated Date Inactivated Comments 04/16/2020 9:42 AM 04/16/2020 3:34 PM * Full Code Date Activated Date Inactivated Comments 07/27/2018 2:25 AM 07/29/2018 9:03 PM Care Teams Wire Annealer Relationship Specialty Start Date End Date Shakeel Arora MD [address] [address] PCP - General Family Medicine 07/27/19 Avril Tobar MD Referring Physician Dermatology 03/03/19 Christiano Rosales MD [address] [facility] [address] [place] [address] Medical Oncologist/County Judge Medical Oncology 03/03/19 Mari Lofton MD [address] [facility] [address] [place], [place] [id number] Medical Oncologist/County Judge Medical Oncology 07/02/20 Brian Rubi MD [address] [facility] [address] [place] [address] Consulting Physician Diagnostic Radiology 07/03/20
--- OUTSIDE RECORDS SUMMARY | 2024-11-13 12:36 | XMS_ITS | Encounter Summary ---
Author Organization [facility] Address [address] [place] [address] Phone Care Team Providers Care Retail Cosmetics Sales Beauty Advisor Name Role Phone Shakeel Arora MD Primary Care Provider [phone] Christiano Rosales MD Primary Care Provider [phone] Shakeel Arora MD Primary Care Provider [phone] Christiano Rosales MD Primary Care Provider [phone] Shakeel Arora MD Primary Care Provider [phone] Christiano Rosales MD Primary Care Provider [phone] Shakeel Arora MD Primary Care Provider [phone] Christiano Rosales MD Primary Care Provider +[phone] Shakeel Arora MD Primary Care Provider [phone] Shakeel Arora MD Primary Care Provider [phone] Christiano Rosales MD Primary Care Provider +[phone] Shakeel Arora MD Primary Care Provider [phone] Christiano Rosales MD Primary Care Provider +[phone] Shakeel Arora MD Primary Care Provider [phone] Christiano Rosales MD Primary Care Provider +[phone] Christiano Rosales MD Primary Care Provider [phone] Shakeel Arora MD Primary Care Provider [phone] Christiano Rosales MD Primary Care Provider +[phone] Shakeel Arora MD Primary Care Provider [phone] Shakeel Arora MD Primary Care Provider [phone] Christiano Rosales MD Primary Care Provider +[phone] Shakeel Arora MD Primary Care Provider [phone] Christiano Rosales MD Primary Care Provider +[phone] Shakeel Arora MD Primary Care Provider [phone] Avril Tobar MD Unavailable [phone] Christiano Rosales MD Unavailable [phone] Shakeel Arora MD Primary Care Provider [phone] Mari Lofton MD Unavailable + [phone] CyriBrian mares MD Unavailable [phone] Encounter Details Date Type Department Care Team (Latest Contact Info) Description 02/06/2011 Orders Only [facility] Scanning, Provider Social History Tobacco Use Types Packs/Day Years Used Date Smoking Tobacco: Never Assessed Comments Unknown Sex and Gender Information Value Date Recorded Sex Assigned at Not on file Legal Sex Female 2:43 AM UM SPECIALIST Gender Identity Not on file Sexual [...] on filedocumented in this encounter Care Teams Retail Cosmetics Sales Beauty Advisor Relationship Specialty Start Date End Date Shakeel Arora MD [address] [address] PCP - General 08/26/16 08/31/16 Christiano Rosales MD [address] [address] PCP - General 09/01/16 09/01/16 Shakeel Arora MD [address] [address] PCP - General 09/02/16 09/02/16 [place] [address] [place] [address] PCP - General 09/03/16 09/16/16 Shakeel Arora MD [facility] [address] [address] PCP - General 09/17/16 12/01/16 [place] [address] [place] [address] PCP - General 12/02/16 03/09/17 Shakeel Arora MD [address] [address] PCP - General 03/10/17 06/08/17 Christiano Rosales MD [address] [address] PCP - General 06/09/17 09/05/17 Shakeel Arora MD [address] [address] PCP - General 09/06/17 09/07/17 Shakeel Arora MD [address] [address] PCP - General 09/08/17 09/08/17 Christiano Rosales MD [address] [address] PCP - General 09/09/17 09/09/17 Shakeel Arora MD [address] [address] PCP - General 09/10/17 09/13/17 Christiano Rosales MD [address] [address] PCP - General 09/14/17 09/14/17 Shakeel Arora MD [address] [address] PCP - General 09/15/17 09/21/17 Christiano Rosales MD [address] [address] PCP - General 09/22/17 09/22/17 Christiano Rosales MD [address] [address] PCP - General 09/23/17 09/24/17 Shakeel Arora MD [address] [address] PCP - General 09/25/17 09/26/17 Christiano Rosales MD [address] [address] PCP - General 09/27/17 09/27/17 Shakeel Arora MD [address] [address] PCP - General 09/28/17 09/28/17 Shakeel Arora MD [address] [address] PCP - General 09/29/17 09/29/17 Christiano Rosales MD [address] [address] PCP - General 09/30/17 09/30/17 Shakeel Arora MD [address] [address] PCP - General 10/01/17 10/01/17 Christiano Rosales MD [address] [address] PCP - General 10/02/17 10/05/17 Shakeel Arora MD [address] [address] PCP - General 10/06/17 07/26/19 Shakeel Arora MD [address] [address] PCP - General Family Medicine 07/27/19 Avril Tobar MD [address] [address] Referring Physician Dermatology 03/03/19 Christiano Rosales MD [address] [address] Medical Oncologist/Director Of Corporate Sponsorships Medical Oncology 03/03/19 Mari Lofton MD [address] [address] Medical Oncologist/Director Of Corporate Sponsorships Medical Oncology 07/02/20 Brian Rubi MD [address] [address] Consulting Physician Diagnostic Radiology 07/03/20 documented as of this encounter
--- OUTSIDE RECORDS SUMMARY | 2024-11-13 12:36 | XMS_ITS ---
Author Organization [facility] Address [address] [place] [address] Care Team Providers Care Designer And Patternmaker Name Role Phone Avril Tobar MD Unavailable [phone] Christiano Rosales MD Unavailable [phone] Shakeel Arora MD Primary Care Provider [phone] Mari Lofton MD Unavailable [phone] CyriBrian mares MD Unavailable [phone] Active Problems Problem Noted Date Diagnosed Date [...] 04/14/2018 Assessment & Plan (04/14/2018 8:41 AM MANUFACTURING PLANT MANAGER): Warm compresses, Doxy 100mg BID PO for 1 week, Maxitrol lele at bedtime (QHS) both eyes (OU) for 1 week Warm compress 2-3 times a day 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 -No evidence of disease -Continue to monitor [...] basilic Port removed in clinic 04/21/12 by [facility] Lovenox 60 BID Adenocarcinoma of cecum 06/10/2011 [...] Rosales MD 1 of 6 cycles started [id number] - [facility] - Lymphoma - Arm E - Ibrutinib / ABT-199 (ABT [id number] ) 8 04/27/2018 ibrutinib (IMBRUVICA)INV -[facility] ABT-199 (venetoclax) (/A [id number]) Therapy Complete Christiano Rosales MD 5 (6 [...]
== END 2024-11-13 12:33 | disposition home or self-care (01) ==
PROVIDERS: PCP Family Medicine; Visit Provider Orthopaedic Surgery
DX: I82.411 Acute embolism and thrombosis of right femoral vein (principal); I82.431 Acute embolism and thrombosis of right popliteal vein; M79.89 Other specified soft tissue disorders
CPT/HCPCS: 93971

== ENCOUNTER 2024-12-01 11:38 | Emergency (ER) | payer MEDICARE, OTHER, SELFPAY ==
--- NOTE | ~2024-12-01 | XR_ITS ---
EXAMINATION: XR chest 1V portable DATE: 12/01/2024 14:23 INDICATION: Bilateral shoulder pain TECHNIQUE: frontal view of the chest was obtained. COMPARISON: Chest radiograph dated 02/24/2023 FINDINGS: The lungs are clear with no focal airspace opacities, pulmonary edema, pleural effusion or pneumothor ax. The cardiomediastinal silhouette is normal. 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 Subarticular cystlike changes at the left and right glenoid c onsistent with at least mild osteoarthritis with small overlying high-grade chondromalacia. IMPRESSION: 1. No acute cardiopulmonary disease. 2. At least mild osteoarthritis at the bilateral glenohumeral joints with subarticular cystlike jean baptiste e at the glenoids. Reviewed, dictated and finalized at location A. IMPRESSION: 1. No acute cardiopulmonary disease. 2. At least mild osteoarthritis at the bilateral glenohumeral joints with subar ticular cystlike change at the glenoids.
--- NOTE | ~2024-12-01 | US_ITS ---
EXAMINATION:US venous doppler LE RT INDICATION:History of DVT. Patient currently on blood thinners. TECHNIQUE: Multiple grayscale, color flow and Doppler images of the right lower extremity deep venous systems were obtained and reviewed. COMPARISON:Comparison ultrasound dated 11/13/2024 FINDINGS: The common femoral, superficial femoral veins demonstrate normal respiratory variation, aug mentation and compressibility. Color flow is also seen within the posterior tibial peroneal, greater saphenous and profunda veins. Persistent deep venous thrombosis of the popliteal vein. IMPRESSION: 1: Persistent deep venous thrombosis right popliteal vein. Reviewed, dictated and finalized at location A.
--- OUTSIDE RECORDS SUMMARY | 2024-12-01 11:41 | XMS_ITS ---
Author Organization [facility] Address [address] [place] [address] Care Team Providers Care Medical Front Desk Specialist Name Role Phone Avril Tobar MD Unavailable [phone] Christiano Rosales MD Unavailable [phone] Shakeel Arora MD Primary Care Provider [phone] Mari Lofton MD Unavailable [phone] CyriBrian mares MD Unavailable [phone] Active Problems Problem Noted Date Diagnosed Date [...] 04/14/2018 Assessment & Plan (04/14/2018 8:41 AM MALTED MILK MIXER): Warm compresses, Doxy 100mg BID PO for 1 week, Maxitrol lele at bedtime (QHS) both eyes (OU) for 1 week Warm compress 2-3 times a day 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 04/14/2018 Combined forms of age-related cataract of both e yes 04/14/2018 Assessment & Plan (04/14/2018 8:42 AM MALTED MILK MIXER): Asymptomatic, monitor Narrow angle glaucoma suspect of both eyes 04/14 Assessment & Plan (04/14/2018 8:43 AM MALTED MILK MIXER): Warned pt signs and Symptoms of angle closure Large CD both eyes (OU), borderline IOP Consult with Dr Champion 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 Nancy Avila, adjuvant radiation. Right augmentation mammoplasty Multifocal ca T1cN1 ER+, [place]+, Her2 negative, lymphatic permeation; AC/Taxol, RT, [place] 2011 R breast, T3N1, ER+,NJ+,Her2 negative, MIB 7%,lymphovascular and perineural invasion Bilateral mastectomies Assessment & Plan (07/27/2018 4:20 AM CDT): Breast cancer diagnosed in 2000. T3N1, ER/NJ+, Stage III. AC + Taxol x 4 cycles (total brittney dose 420mg). Disease recurrence in R breast in 2011. Right mastectomy, XRT, Abraxane x 3 cycles, Exemestane x 5 years 7860-9776. -No evidence of disease -Continue to monitor [...] involvement. Treatment History: 06/2011-07/2011 RM-CHOP x 2, NJ by PET 09/28/2011 BEAM Autologous SCT, CR by PET 12/2011 Rituxan x 2 doses 09/08/2017 CT scan with cecal mass and ileocolic adenopathy 09/29/2017-04/27/18 ABT-199 + Ibrutinib x 6 on 04/27/18-07/11/18 Ibrutinib, NJ, dc'd due to toxicities 07/13/18- Rituxan/Revlimid -Recent [...] basilic Port removed in clinic 04/21/12 by [facility] Lovenox 60 BID Adenocarcinoma of cecum 06/10/2011 [...] Rosales MD 1 of 6 [id number] Lymph[facility] - Arm E - Ibrutinib / ABT-199 (ABT [id number] ) 8 04/27/2018 ibrutinib (IMBRUVICA)INV -[facility] ABT-199 (venetoclax) (/A [id number]) Therapy Complete Christiano Rosales MD 5 (6 [...]
--- OUTSIDE RECORDS SUMMARY | 2024-12-01 11:41 | XMS_ITS | Clinical Summary ---
Author Organization [facility] Address [address] [place] [address] Care Team Providers Care Wax Pattern Coater Name Role Phone Avril Tobar MD Unavailable [phone] Christiano Rosales MD Unavailable [phone] Shakeel Arora MD Primary Care Provider [phone] Mari Lofton MD Unavailable [phone] CyriacBrian MD Unavailable [phone] Allergies Active Allergy Reactions Criticality Noted Date [...] with simethicone-diph enhydramine-lido royce (MAGIC MOUTHWASH) suspension [id number] :Chemotherapy-In duced Mucositis Swish and spit 15 [...] 04/14/2018 Assessment & Plan (04/14/2018 8:41 AM SAFEKEEPING CLERK): Warm compresses, Doxy 100mg BID PO for 1 week, Maxitrol lele at bedtime (QHS) both eyes (OU) for 1 week Warm compress 2-3 times a day 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 04/14/2018 Combined forms of age-related cataract of both e yes 04/14/2018 Assessment & Plan (04/14/2018 8:42 AM SAFEKEEPING CLERK): Asymptomatic, monitor Narrow angle glaucoma suspect of both eyes 04/14 Assessment & Plan (04/14/2018 8:43 AM SAFEKEEPING CLERK): Warned pt signs and Symptoms of angle closure Large CD both eyes (OU), borderline IOP Consult with Dr Champion 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 Nancy Avila, adjuvant radiation. Right augmentation mammoplasty Multifocal ca T1cN1 ER+, [place]+, Her2 negative, lymphatic permeation; AC/Taxol, RT, [place] 2011 R breast, T3N1, ER+,NV+,Her2 negative, MIB 7%,lymphovascular and perineural invasion Bilateral mastectomies Assessment & Plan (07/27/2018 4:20 AM CDT): Breast cancer diagnosed in 2000. T3N1, ER/NV+, Stage III. AC + Taxol x 4 cycles (total brittney dose 420mg). Disease recurrence in R breast in 2011. Right mastectomy, XRT, Abraxane x 3 cycles, Exemestane x 5 years 2199-3955. -No evidence of disease -Continue to monitor [...] involvement. Treatment History: 06/2011-07/2011 RM-CHOP x 2, NV by PET 09/28/2011 BEAM Autologous SCT, CR by PET 12/2011 Rituxan x 2 doses 09/08/2017 CT scan with cecal mass and ileocolic adenopathy 09/29/2017-04/27/18 ABT-199 + Ibrutinib x 6 on 04/27/18-07/11/18 Ibrutinib, [place], dc'd due to toxicities 07/13/18- Rituxan/Revlimid -Recent [...] Encounters Date Type Department Care Team Description 11/14/2024 Telephone [facility] [address] [place] [address] Floor 8 [place] [phone] Faisal Ho, [facility] 09/28/2024 Documentation [facility] [address] [place] [address] Floor 6 [place] [phone] Prudence Haskins, [facility] 09/27/2024 Documentation [facility] [address] [place] [address] Floor 6 [place] [phone] Nati Crespo RN 09/26/2024 3:00 PM CDT Infusion [facility] - Infusion 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) 09/26/2024 Orders Only [facility] [address] [facility] Floor [address] [place] [address] Phyllis Greer RN from Last 3 Months Immunizations Immunization Administration [...] on file Legal Sex Female 2:43 AM SAFEKEEPING CLERK Gender Identity Not on file Sexual [...] 162 cm (5' 3.78) 06/20/2024 7:41 AM SAFEKEEPING CLERK Body Mass Index 30.94 06/20/2024 7:41 AM SAFEKEEPING CLERK Plan of Treatment Health Maintenance Due Date [...] Td or Tdap) 05/05/2022 05/05/2012 Covid-19 Vaccine ( - 2023-2 5 season) 2024 05/15/2021, 08/01/2020, 07/04/2020 Well Visit 65+ 2024 Influenza Vaccine (#1) 2025 , 02/15/2019, 03/30/2018, Additional history exists Colon Cancer Screening-Colonoscopy 04/16/2030 04/16/2020 Colon Cancer Screening-CT Colonography Discontinued 04/16/2020 Colon Cancer Screening-DNA Stool Discontinued 04/16/20 Colon Cancer Screening-FIT Discontinued 04/16/2020 Colon Cancer [...] of breast (HCC) COLONOSCOPY 04/16/2020 10:07 AM SAFEKEEPING CLERK from Last 3 Months or Most [...] LAB BLOOD ORDERABLES Final R esult [facility] [place] [address] * (ABNORMAL) Differential, auto (09/26/2024 12:26 PM CDT) Neutrophil abs 1.11(L) 1.50 - 6.50 K/cumm Comment:Testing performed by : [facility]e [facility], [address] [place] [address] Lymphocyte abs 0.83 0.80 - 3.30 K/cumm [facility] Comment:Testing performed by : [facility], [address] [place] [address] Monocyte abs 0.25 0.20 - 0.80 K/cumm JENNIFER [facility] Comment:Testing performed by : [facility], [address] [place] [address] Eosinophil abs 0.01 0.00 - 0.50 K/cumm JENNIFER [facility] Comment:Testing performed by : [facility], [address] [place] [address] Basophil abs 0.08 0.00 - 0.10 K/cumm [facility] Comment:Testing performed by : [facility], [address] [place] [phone] Neutrophil pct 48.8 % CERARCHANA [facility] Comment: Interpretive Data Percent cell count reference ranges are not reported, since discordance with absolute values may lead to misinterpretation of CBC data. Current Interpretive Data was last revised on 2017. Testing performed by: [facility], [address] [place] [phone] Lymphocyte pct 36.4 % CERARCHANA [facility] Comment: Interpretive Data Percent cell count reference ranges are not reported, since discordance with absolute values may lead to misinterpretation of CBC data. Current Interpretive Data was last revised on 2017. Testing performed by: [facility], [address] [place] [phone] Monocyte pct 10.9 % CERARCHANA CASSIDY Comment: Interpretive Data Percent cell count reference ranges are not reported, since discordance with absolute values may lead to misinterpretation of CBC data. Current Interpretive Data was last revised on 2017. Testing performed by: [facility], [address] [place] [phone] Eosinophil pct 0.6 % CERARCHANA CASSIDY Comment: Interpretive Data Percent cell count reference ranges are not reported, since discordance with absolute values may lead to misinterpretation of CBC data. Current Interpretive Data was last revised on 2017. Testing performed by: [facility], [address] [place] [phone] Basophil pct 3.3 % CERARCHANA CASSIDY Comment: Interpretive Data Percent cell count reference ranges are not reported, since discordance with absolute values may lead to misinterpretation of CBC data. Current Interpretive Data was last revised on 2017. Testing performed by: [facility], [address] [place] [phone] Blood 09/26/2024 12:2 6 PM CDT 09/26/2024 12:30 PM CDT Christiano Rosales MD LAB BLOOD ORDERABLES Final R esult [facility]ENN[facility] [place] [address] * (ABNORMAL) CBC with auto differential (09/26/2024 12:26 PM CDT) WBC 2.27(L) 3.80 - 9.90 K/cumm Comment:Testing performed by : [facility], [address] [place] [address] Hgb 13.3 11.9 - 15.5 g/dL CERNER [facility]J Comment:Testing performed by : [facility], [address] [place] [address] Hct 38.6 35.6 - 45.5 % CERNER [facility]J Comment:Testing performed by : [facility], [address] [place] [address] Plt 193 150 - 400 K/cumm CERNER [facility]J Comment:Testing performed by : [facility], [address] [place] [address] MPV 7.3 6.8 - 10.4 fL [facility] Comment:Testing performed by : [facility], [address] [place] [address] RBC 3.68(L) 3.90 - 5.20 M/cumm [facility] Comment:Testing performed by : [facility], [address] [place] [address] MCV 104.9(H) 81.3 - 96.4 fL [facility] Comment:Testing performed by : [facility], [address] [place] [address] MCH 36.1(H) 27.1 - 33.3 pg [facility]J Comment:Testing performed by : [facility], [address] [place] [address] MCHC 34.4 32.3 - 35.7 g/dL [facility]ER [facility]J Comment:Testing performed by : [facility], [address] [place] [address] RDW CV 14.1 11.1 - 14.9 % C[facility]ER BJ Comment:Testing performed by : [facility] Heme Lab, [address] [place] [phone] NRBC abs 0.00 0.00 - 0.01 K/cumm [facility] Comment:Testing performed by : [facility], [address] [place] [phone] Blood 09/26/2024 12:2 6 PM CDT 09/26/2024 12:30 PM CDT Christiano Rosales MD LAB BLOOD ORDERABLES Final R esult Performing Organization Address City/[facility]/ZIP Co de Phone Number [facility] [place] [address] * (ABNORMAL) Cancer antigen 15-3 (09/26/2024 12:26 PM CDT) CA 15-3 ag 39.0(H) <=25.0 units/mL Comment: Interpretive Data The Prabhakar CA 15-3 assay procedure was used. Results from different manufacturers or methods may not be comparable. Serial testing should be performed using the same method. Blood 09/26/2024 12:2 6 PM CDT 09/26/2024 12:56 PM CDT Nati Ocampo STONE DRILLER LAB BLOOD ORDERABLES Final Result Performing Organization Address City/[facility]/ZIP Co de Phone Number [facility] Department [place] [address] * Vitamin D 25 hydroxy (09/26/2024 12:26 PM CDT) Vitamin D 25-OH 37 30 - 80 ng/mL Blood 09/26/2024 12:2 6 PM CDT 09/26/2024 12:35 PM CDT Nati Ocampo STONE DRILLER LAB BLOOD ORDERABLES Final Result Performing Organization Address City/[facility] Co de Phone Number CERNER [facility] [place] [address] * Lactate dehydrogenase (LD) (09/26/2024 12:26 PM CDT) Pathologist [facility] Lactate dehydrogenase (LDH) 242 100 - 250 Units/L Blood 09/26/2024 12:2 6 PM CDT 09/26/2024 12:35 PM CDT Christiano Rosales MD LAB BLOOD ORDERABLES Final R esult Performing Organization Address [facility] [place] [address] * CEA (09/26/2024 12:26 PM CDT) [facility] CEA 2.0 <=5.0 ng/mL Comment: Interpretive Data: [...] BLOOD ORDERABLES Final Result Performing Organization Address [facility] Co de Phone Number JENNIFER [facility] [place] [address] * Beta 2 microglobulin, serum (09/26/2024 12:26 PM CDT) Pathologist [facility] Beta 2 Microglobulin, Serum 1.20 1.00 - 2.50 mg/L Comment: Interpretive Data The Prabhakar Beta-2 microglobulin assay procedure was used. Results from different manufacturers or methods may not be comparable. Serial testing should be performed using the same method. Blood 09/26/2024 12:2 6 PM CDT 09/26/2024 12:56 PM CDT us Christiano Rosales MD LAB BLOOD ORDERABLES Final R esult [facility] [place] [address] * Comprehensive metabolic panel (09/26/2024 12:26 PM CDT) [facility] Sodium 141 135 - 145 mmol/L Potassium, pl 3.7 3.3 - 4.9 mmol/L [facility] Chloride 103 97 - 110 mmol/L [facility] CO2 29 22 - 32 mmol/L [facility] Anion gap 9 2 - 15 mmol/L [facility] BUN 15 6 - 25 mg/dL [facility] Creatinine 0.98 0.60 - 1.10 mg/dL [facility] Glucose 106 70 - 199 mg/dL [facility] Comment: Interpretive Data Fasting glucose >/= [...] 2022. Calcium 9.6 8.5 - 10.3 mg/dL [facility] Bilirubin, total 0.4 0.1 - 1.2 mg/dL [facility] Protein, pl 7.6 6.5 - 8.5 g/dL [facility] Albumin 4.7 3.5 - 5.0 g/dL [facility] Alk phos 65 40 - 130 Units/L [facility] ALT 17 7 - 45 Units/L [facility] AST 22 10 - 45 Units/L [facility] Blood 09/26/2024 12:2 6 PM CDT 09/26/2024 12:35 PM CDT us Christiano Rosales MD LAB BLOOD ORDERABLES Final R esult [facility] [place] [address] * COLONOSCOPY (04/16/2020 10:07 AM SAFEKEEPING CLERK) Anatomical Region Laterality Modality Other Narrative Procedure Note Tony Peña MD - 04/16/2020 10:07 AM [facility] Patient Name: Ella Herrera Procedure Date: 04/16/2020 10:07 AM Date of : 1960 Admit Type: Outpatient Age: 59 Gender: Female Attending MD: Tony Peña M.D. Room: [facility] ENDOSCOPY ROOM 3 Note Status: Finalized [...] bowel preparation was evaluated using the BBPS ([place] Bowel Preparation Scale) with scores of: Right [...] On: 04/16/2020 10:07 AM Recognized by the [place] for promoting quality in endoscopy Tony Peña MD ENDOSCOPY PROCEDURES Fin al Result from Last 3 Months or Most Recently Relevant to Health Maintenance Insurance MEDICARE [facility] ACCESS CHOICE [facility] Address: [address] [place] [address] [facility] CHOICE PLUS [facility] HMO/PPO Address: [address] [address] [place] [address] MEDICARE [facility] Advance Directives For more information, please contact: [phone] * Full Code (Latest Code Status on File) Date Activated Date Inactivated Comments 2020 11:25 AM 04/27/2020 5:00 AM * Full Code Date Activated Date Inactivated Comments 04/16/2020 9:42 AM 04/16/2020 3:34 PM * Full Code Date Activated Date Inactivated Comments 07/27/2018 2:25 AM 07/29/2018 9:03 PM Care Teams Wax Pattern Coater Relationship Specialty Start Date End Date Shakeel Arora MD [address] [address] PCP - General Family Medicine 07/27/19 Avril Tobar MD Referring Physician Dermatology 03/03/19 Christiano Rosales MD [address] [facility] [address] [place], [place] [id number] Medical Oncologist/On Air Personality Medical Oncology 03/03/19 Mari Lofton MD [address] [facility] [address] [place] [address] Medical Oncologist/On Air Personality Medical Oncology 07/02/20 Brian Rubi MD [address] [facility] [address] [place] [address] Consulting Physician Diagnostic Radiology 07/03/20
--- OUTSIDE RECORDS SUMMARY | 2024-12-01 11:41 | XMS_ITS | Clinical Summary ---
Author Organization [facility] Address [facility] [place] [address] Care Team Providers Care Health Communications Specialist Name Role Phone Unavailable Primary Care Provider [...]
--- OUTSIDE RECORDS SUMMARY | 2024-12-01 11:41 | XMS_ITS | Clinical Summary ---
Author Organization [facility] [place] Address [address] [place] [address] Phone Care Team Providers Care Early Childhood Teacher Name Role Phone Shakeel Arora MD Primary Care Provider [phone] Allergies Active Allergy Reactions Criticality Noted Date [...] Provider: Glenis Lara MD [address] [place] [address] Other: Problem Noted Date Diagnosed Date Mass [...] disease stage IIa, left breast reconstruction, Dr. Nnacy Avila, adjuvant radiation. Right augmentation mammoplasty Multifocal ca T1cN1 ER+, [place]+, Her2 negative, lymphatic permeation; AC/Taxol, RT, [facility] 2011 R breast, T3N1, ER+,[place]+,Her2 negative, MIB [...] on file Legal Sex Female 5:41 AM ORNAMENTAL METAL ERECTOR Gender Identity Not on file Sexual Orientation Not on file Occupation Industry Job Start Date Job End Date Not on file Not on file Not on file Not on file Not on file Not on file Not on file Not on file Last Filed Vital Signs Vital Sign Reading Time Taken Comments Blood Pressure 120/77 03/31/2017 8:02 AM ORNAMENTAL METAL ERECTOR Pulse 82 03/31/2017 8:02 AM ORNAMENTAL METAL ERECTOR Temperature 36.9 C (98.4 F) 03/31/2017 8:02 AM ORNAMENTAL METAL ERECTOR Respiratory Rate 15 03/31/2017 8:02 AM ORNAMENTAL METAL ERECTOR Oxygen Saturation 91% 05/05/2012 6:50 AM ORNAMENTAL METAL ERECTOR Inhaled Oxygen Concentration - - Weight 73.3 kg (161 lb 8 oz) 03/31/2017 8:02 AM ORNAMENTAL METAL ERECTOR Height 162.6 cm (5' 4) 03/31/2017 8:02 AM ORNAMENTAL METAL ERECTOR Body Mass Index 27.72 03/31/2017 8:02 AM ORNAMENTAL METAL ERECTOR Plan of Treatment Health Maintenance Due Date [...] series) 2034 Medical Devices Implanted Type Area Pulp Press Tender Device Identifier Shelf Expiration Date Model / Serial / Lot Port Pwrprt Slim Chrnflx Cath 6fr [id number] - [id number] Implanted:Qty : 1 on 04/08/2012 by Olga Cano MD at [facility] Port Left: Subclavian CR BARD- ACCESS SYS 01/06/2014 [id number] / [id number] / [id number] Procedures Procedure Name Priority Date/Time Associated Diagnosis [...] Advance Directives For more information, please contact: [phone] * Full Code (Latest Code Status on File) Date Activated Date Inactivated Comments 05/01/2012 4:30 PM 05/05/2012 3:14 PM * Full Code Date Activated Date Inactivated Comments 04/08/2012 9:32 AM 04/08/2012 1:42 PM * Full Code Date Activated Date Inactivated Comments 04/08/2012 8:49 AM 04/08/2012 9:32 AM Care Teams Early Childhood Teacher Relationship Specialty Start Date End Date Shakeel Arora MD [address] [place] [phone] PCP - General 06/03/08
--- OUTSIDE RECORDS SUMMARY | 2024-12-01 11:41 | XMS_ITS | Encounter Summary ---
Author Organization [facility] Address [address] [place] [address] Phone Care Team Providers Care Regasification Plant Operator Name Role Phone Shakeel Arora MD Primary Care Provider [phone] Christiano Rosales MD Primary Care Provider [phone] Shakeel Arora MD Primary Care Provider [phone] Christiano Rosales MD Primary Care Provider +[phone] Shakeel Arora MD Primary Care Provider [phone] Christiano Rosales MD Primary Care Provider +[phone] Shakeel Arora MD Primary Care Provider [phone] Christiano Rosales MD Primary Care Provider +[phone] Shakeel Arora MD Primary Care Provider [phone] Shakeel Arora MD Primary Care Provider [phone] Christiano Rosales MD Primary Care Provider +[phone] Shakeel Arora MD Primary Care Provider +[phone] Christiano Rosales MD Primary Care Provider +[phone] Shakeel Arora MD Primary Care Provider +[phone] Christiano Rosales MD Primary Care Provider +[phone] Christiano Rosales MD Primary Care Provider +[phone] Shakeel Arora MD Primary Care Provider [phone] Christiano Rosales MD Primary Care Provider +[phone] Shakeel Arora MD Primary Care Provider [phone] Shakeel Arora MD Primary Care Provider [phone] Christiano Rosales MD Primary Care Provider +[phone] Shakeel Arora MD Primary Care Provider +[phone] Christiano Rosales MD Primary Care Provider +[phone] Shakeel Arora MD Primary Care Provider [phone] Avril Tobar MD Unavailable [phone] Christiano Rosales MD Unavailable [phone] Shakeel Arora MD Primary Care Provider [phone] Mari Lofton MD Unavailable + [phone] CyriBrian mares MD Unavailable [phone] Encounter Details Date Type Department Care Team (Latest Contact Info) Description 02/06/2011 Orders Only [facility] Scanning, Provider Social History Tobacco Use Types Packs/Day Years Used Date Smoking Tobacco: Never Assessed Comments Unknown Sex and Gender Information Value Date Recorded Sex Assigned at Not on file 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 Gender Identity Not on file Sexual [...] on filedocumented in this encounter Care Teams Regasification Plant Operator Relationship Specialty Start Date End Date Shakeel Arora MD [address] [address] PCP - General 08/26/16 08/31/16 Christiano Rosales MD [address] [address] PCP - General 09/01/16 09/01/16 Shakeel Arora MD [address] [address] PCP - General 09/02/16 09/02/16 [place] [address] [place] [address] PCP - General 09/03/16 09/16/16 Shakeel Arora MD [facility] [address] [address] PCP - General 09/17/16 12/01/16 [place] [address] [place] [address] PCP - General 12/02/16 03/09/17 Shakeel Arora MD [address] [address] PCP - General 03/10/17 06/08/17 Christiano Rosales MD [address] [address] PCP - General 06/09/17 09/05/17 Shakeel Arora MD [address] [address] PCP - General 09/06/17 09/07/17 Shakeel Arora MD [address] [address] PCP - General 09/08/17 09/08/17 Christiano Rosales MD [address] [address] PCP - General 09/09/17 09/09/17 Shakeel Arora MD [address] [address] PCP - General 09/10/17 09/13/17 Christiano Rosales MD [address] [address] PCP - General 09/14/17 09/14/17 Shakeel Arora MD [address] [address] PCP - General 09/15/17 09/21/17 Christiano Rosales MD [address] [address] PCP - General 09/22/17 09/22/17 Christiano Rosales MD [address] [address] PCP - General 09/23/17 09/24/17 Shakeel Arora MD [address] [address] PCP - General 09/25/17 09/26/17 Christiano Rosales MD [address] [address] PCP - General 09/27/17 09/27/17 Shakeel Arora MD [address] [address] PCP - General 09/28/17 09/28/17 Shakeel Arora MD [address] [address] PCP - General 09/29/17 09/29/17 Christiano Rosales MD [address] [address] PCP - General 09/30/17 09/30/17 Shakeel Arora MD [address] [address] PCP - General 10/01/17 10/01/17 Christiano Rosales MD [address] [address] PCP - General 10/02/17 10/05/17 Shakeel Arora MD [address] [address] PCP - General 10/06/17 07/26/19 Shakeel Arora MD [address] [address] PCP - General Family Medicine 07/27/19 Avril Tobar MD [address] [address] Referring Physician Dermatology 03/03/19 Christiano Rosales MD [address] [address] Medical Oncologist/Audio/Visual Manager Medical Oncology 03/03/19 Mari Lofton MD [address] [address] Medical Oncologist/Audio/Visual Manager Medical Oncology 07/02/20 Brian Rubi MD [address] [address] Consulting Physician Diagnostic Radiology 07/03/20 documented as of this encounter
--- OUTSIDE RECORDS SUMMARY | 2024-12-01 11:41 | XMS_ITS | Encounter Summary ---
Author Organization [facility] [employer] [facility] Address [address] [place] [address] Phone Care Team Providers Care Replenishment Analyst Name Role Phone Avril Tobar MD Unavailable [phone] Christiano Rosales MD Unavailable [phone] Shakeel Arora MD Primary Care Provider [phone] Mari Lofton MD Unavailable [phone] Brian Ruib MD Unavailable [phone] Encounter Details Date Type Department Care Team (Late st Contact Info) Description 01/04/2024 Social Work [facility] Oncology [address] [facility] 7th [place] [address] [place] [id number] Sonia Rothman LCSW Social History Tobacco Use Types Packs/Day Years Used Date Smoking Tobacco: Never Passive Smoke Exposure: Never Smokeless Tobacco: Never Alcohol Use Standard Drinks/Week Comments Not Currently 0 (1 standard drink = 0.6 oz pur e alcohol) social Comments No Sex and Gender Information Value Date Recorded Sex Assigned at Not on file 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 Gender Identity Not on file Sexual Orientation Not on file documented as of this encounter Plan of Treatment Not on file documented as of this encounter Visit Diagnoses Not on filedocumented in this encounter Care Teams Replenishment Analyst Relationship Specialty Start Date End Date Shakeel Arora MD [address] [address] PCP - General Family Medicine 07/27/19 Avril Tobar MD Referring Physician Dermatology 03/03/19 Christiano Rosales MD [address] [address] Medical Oncologist/[employer] Internship Medical Oncology 03/03/19 Mari Lofton MD [address] [address] Medical Oncologist/[employer] Compliance Internship Medical Oncology 07/02/20 Brian Rubi MD [address] [address] Consulting Physician Diagnostic Radiology 07/03/20 documented as of this encounter
--- OUTSIDE RECORDS SUMMARY | 2024-12-01 11:41 | XMS_ITS | Referral Summary ---
Author Organization [facility] Address [address] [place] [address] Care Team Providers Care Dental Secretary Name Role Phone Avril Tobar MD Unavailable [phone] Christiano Rosales MD Unavailable Shakeel Arora MD Primary Care Provider [phone] Mari Lofton MD Unavailable [phone] Brian Rubi MD Unavailable [phone] Encounters Date Type Department Care Team Description 11/14/2024 Telephone [facility] Oncology [address] [place] [address] Floor 8 [place] [address] Faisal Ho, A 09/28/2024 Documentation [facility] Oncology [address] [place] [address] Floor 6 [place] [address] Prudence Haskins, A 09/27/2024 Documentation [facility] Oncology [address] [place] [address] Floor 6 [place] [id number] Nati Crespo, DORIS 09/26/2024 Orders Only [facility] Oncology [address] [place] [address] Floor 8 [place] [address] Phyllis Greer RN 09/26/2024 3:00 PM CDT Infusion [facility] - Infusion [address] [place] [address] Floor 5 [place] [address] Malignant neoplasm of right breast in female, estrogen receptor positive, unspecified site of breast (HCC) (Primary Dx); Malignant neoplasm metastatic to bone (HCC) 09/26/2024 1:00 PM CDT Lab [facility] - Lab Collection [address] [facility] Floor 5 [place] [address] Malignant neoplasm metastatic to bone (HCC); Malignant neoplasm of right breast in female, estrogen receptor positive, unspecified site of breast (HCC); 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) 09/26/2024 2:00 PM CDT Office Visit [facility] Oncology [address] [facility] Floor 8 [place] [address] Mair Lofton MD Malignant neoplasm of right breast in female, estrogen receptor positive, unspecified site of breast (HCC) (Primary Dx); Malignant neoplasm metastatic to bone (HCC); 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); Malignant neoplasm of female breast, unspecified estrogen receptor status, unspecified laterality, unspecified site of breast (HCC) from Last 3 Months Allergies Active Allergy [...] with simethicone-diph enhydramine-lido royce (MAGIC MOUTHWASH) suspension [id number] :Chemotherapy-In duced Mucositis Swish and spit 15 [...] 04/14/2018 Assessment & Plan (04/14/2018 8:41 AM EDITORIAL SPECIALIST): Warm compresses, Doxy 100mg BID PO for 1 week, Maxitrol lele at bedtime (QHS) both eyes (OU) for 1 week Warm compress 2-3 times a day 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 04/14/2018 Combined forms of age-related cataract of both e yes 04/14/2018 Assessment & Plan (04/14/2018 8:42 AM EDITORIAL SPECIALIST): Asymptomatic, monitor Narrow angle glaucoma suspect of both eyes 04/14 Assessment & Plan (04/14/2018 8:43 AM EDITORIAL SPECIALIST): Warned pt signs and Symptoms of angle closure Large CD both eyes (OU), borderline IOP Consult with Dr Bohrade 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 Nancy Avila, adjuvant radiation. Right augmentation mammoplasty Multifocal ca T1cN1 ER+, WI+, Her2 negative, lymphatic permeation; AC/Taxol, RT, Fareston 2011 R breast, T3N1, ER+,WI+,Her2 negative, MIB 7%,lymphovascular and perineural invasion Bilateral mastectomies Assessment & Plan (07/27/2018 4:20 AM CDT): Breast cancer diagnosed in 2000. T3N1, ER/WI+, Stage III. AC + Taxol x 4 cycles (total brittney dose 420mg). Disease recurrence in R breast in 2011. Right mastectomy, XRT, Abraxane x 3 cycles, Exemestane x 5 years 4787-1023. -No evidence of disease -Continue to monitor [...] involvement. Treatment History: 06/2011-07/2011 RM-CHOP x 2, WI by PET 09/28/2011 BEAM Autologous SCT, CR by PET 12/2011 Rituxan x 2 doses 09/08/2017 CT scan with cecal mass and ileocolic adenopathy 09/29/2017-04/27/18 ABT-199 + Ibrutinib x 6 on 04/27/18-07/11/18 Ibrutinib, WI, dc'd due to toxicities 07/13/18- Rituxan/Revlimid -Recent [...] on file Legal Sex Female 2:43 AM EDITORIAL SPECIALIST Gender Identity Not on file Sexual [...] 162 cm (5' 3.78) 06/20/2024 7:41 AM EDITORIAL SPECIALIST Body Mass Index 30.94 06/20/2024 7:41 AM EDITORIAL SPECIALIST Plan of Treatment Not on file Procedures [...] of breast (HCC) COLONOSCOPY 04/16/2020 10:07 AM EDITORIAL SPECIALIST from Last 3 Months or Most Recently [...] ORDERABLES Final R esult JENNIFER CASSIDY [facility] Department [place] [address] * (ABNORMAL) Differential, auto (09/26/2024 12:26 PM CDT) Pathologist [facility] Neutrophil abs 1.11(L) 1.50 - 6.50 K/cumm Comment:Testing performed by : [facility], [address] [place] [phone] Lymphocyte abs 0.83 0.80 - 3.30 K/cumm JENNIFER CASSIDY Comment:Testing performed by : [facility], [address] [place] [phone] Monocyte abs 0.25 0.20 - 0.80 K/cumm JENNIFER CASSIDY Comment:Testing performed by : [facility], [address] [place] [phone] Eosinophil abs 0.01 0.00 - 0.50 K/cumm [facility] Comment:Testing performed by : [facility], [address] [place] [phone] Basophil abs 0.08 0.00 - 0.10 K/cumm [facility] Comment:Testing performed by : [facility], [address] [place] [phone] Neutrophil pct 48.8 % [facility] Comment: Interpretive Data Percent cell count reference ranges are not reported, since discordance with absolute values may lead to misinterpretation of CBC data. Current Interpretive Data was last revised on 2017. Testing performed by: [facility], [address] [place], [place] [id number] Lymphocyte pct 36.4 % [facility] Comment: Interpretive Data Percent cell count reference ranges are not reported, since discordance with absolute values may lead to misinterpretation of CBC data. Current Interpretive Data was last revised on 2017. Testing performed by: [facility], [address] [place] [phone] Monocyte pct 10.9 % [facility] Comment: Interpretive Data Percent cell count reference ranges are not reported, since discordance with absolute values may lead to misinterpretation of CBC data. Current Interpretive Data was last revised on 2017. Testing performed by: [facility], [address] [place] [phone] Eosinophil pct 0.6 % [facility] Comment: Interpretive Data Percent cell count reference ranges are not reported, since discordance with absolute values may lead to misinterpretation of CBC data. Current Interpretive Data was last revised on 2017. Testing performed by: [facility], [address] [place] [phone] Basophil pct 3.3 % [facility] Comment: Interpretive Data Percent cell count reference ranges are not reported, since discordance with absolute values may lead to misinterpretation of CBC data. Current Interpretive Data was last revised on 2017. Testing performed by: [facility], [address] [place] [phone] Blood 09/26/2024 12:2 6 PM CDT 09/26/2024 12:30 PM CDT Christiano Rosales MD LAB BLOOD ORDERABLES Final R esult JENNIFER CASSIDY [facility] Department [place] [address] * (ABNORMAL) CBC with auto differential (09/26/2024 12:26 PM CDT) WBC 2.27(L) 3.80 - 9.90 K/cumm Comment:Testing performed by : [facility], [address] [place] [address] Hgb 13.3 11.9 - 15.5 g/dL JENNIFER CASSIDY Comment:Testing performed by : [facility], [address] [place] [address] Hct 38.6 35.6 - 45.5 % JENNIFER CASSIDY Comment:Testing performed by : [facility], [address] [place] [address] Plt 193 150 - 400 K/cumm JENNIFER CASSIDY Comment:Testing performed by : [facility], [address] [place] [address] MPV 7.3 6.8 - 10.4 fL JENNIFER CASSIDY Comment:Testing performed by : [facility], [address] [place] [address] RBC 3.68(L) 3.90 - 5.20 M/cumm JENNIFER CASSIDY Comment:Testing performed by : [facility], [address] [place] [address] MCV 104.9(H) 81.3 - 96.4 fL CERARCHANA [facility] Comment:Testing performed by : [facility], [address] [place] [address] MCH 36.1(H) 27.1 - 33.3 pg CERARCHANA [facility] Comment:Testing performed by : [facility], [address] [place] [address] MCHC 34.4 32.3 - 35.7 g/dL [facility] Comment:Testing performed by : [facility], [address] [place] [address] RDW CV 14.1 11.1 - 14.9 % [facility] Comment:Testing performed by : [facility], [address] [place] [address] NRBC abs 0.00 0.00 - 0.01 K/cumm [facility] Comment:Testing performed by : [facility], [address] [place] [address] Blood 09/26/2024 12:2 6 PM CDT 09/26/2024 12:30 PM CDT Christiano Rosales MD LAB BLOOD ORDERABLES Final R esult Performing Organization Address City/[facility]/ZIP Co de Phone Number [facility] Department [place] [address] * (ABNORMAL) Cancer antigen 15-3 (09/26/2024 12:26 PM CDT) Pathologist [facility] CA 15-3 ag 39.0(H) <=25.0 units/mL Comment: Interpretive Data The Prabhakar CA 15-3 assay procedure was used. Results from different manufacturers or methods may not be comparable. Serial testing should be performed using the same method. Blood 09/26/2024 12:2 6 PM CDT 09/26/2024 12:56 PM CDT Nati Ocampo BOAT PATCH[employer] LAB BLOOD ORDERABLES Final Result [facility] Department [place] [address] * Vitamin D 25 hydroxy (09/26/2024 12:26 PM CDT) Vitamin D 25-OH 37 30 - 80 ng/mL Blood 09/26/2024 12:2 6 PM CDT 09/26/2024 12:35 PM CDT Nati Ocampo BOAT PATCHER PLASTIC LAB BLOOD ORDERABLES Final Result Performing Organization Address [facility] de Phone Number JENNIFER [facility] Department [place] [address] * Lactate dehydrogenase (LD) (09/26/2024 12:26 PM CDT) Pathologist [facility] Lactate dehydrogenase (LDH) 242 100 - 250 Units/L Blood 09/26/2024 12:2 6 PM CDT 09/26/2024 12:35 PM CDT Christiano Rosales MD LAB BLOOD ORDERABLES Final R esult Performing Organization Address [facility] [place] [address] * CEA (09/26/2024 12:26 PM CDT) Pathologist [facility] CEA 2.0 <=5.0 ng/mL Comment: Interpretive Data: [...] BLOOD ORDERABLES Final Result Performing Organization Address [facility] de Phone Number [facility] [place] [address] * Beta 2 microglobulin, serum (09/26/2024 12:26 PM CDT) Pathologist [facility] Beta 2 Microglobulin, Serum 1.20 1.00 - 2.50 mg/L Comment: Interpretive Data The Prabhakar Beta-2 microglobulin assay procedure was used. Results from different manufacturers or methods may not be comparable. Serial testing should be performed using the same method. Blood 09/26/2024 12:2 6 PM CDT 09/26/2024 12:56 PM CDT Christiano Rosales MD LAB BLOOD ORDERABLES Final R esult [facility] Department [place] [address] * Comprehensive metabolic panel (09/26/2024 12:26 PM CDT) Sodium 141 135 - 145 mmol/L Potassium, pl 3.7 3.3 - 4.9 mmol/L [facility] Chloride 103 97 - 110 mmol/L [facility] CO2 29 22 - 32 mmol/L [facility] Anion gap 9 2 - 15 mmol/L [facility] BUN 15 6 - 25 mg/dL [facility] Creatinine 0.98 0.60 - 1.10 mg/dL [facility] Glucose 106 70 - 199 mg/dL [facility] Comment: Interpretive Data Fasting glucose >/= [...] 2022. Calcium 9.6 8.5 - 10.3 mg/dL [facility] Bilirubin, total 0.4 0.1 - 1.2 mg/dL [facility] Protein, pl 7.6 6.5 - 8.5 g/dL [facility] Albumin 4.7 3.5 - 5.0 g/dL [facility] Alk phos 65 40 - 130 Units/L [facility] ALT 17 7 - 45 Units/L [facility] AST 22 10 - 45 Units/L [facility] Blood 09/26/2024 12:2 6 PM CDT 09/26/2024 12:35 PM CDT us Christiano Rosales MD LAB BLOOD ORDERABLES Final R esult [facility] Department [place] [address] * COLONOSCOPY (04/16/2020 10:07 AM EDITORIAL SPECIALIST) Anatomical Region Laterality Modality Other Narrative Procedure Note Tony Peña MD - 04/16/2020 10:07 AM CST [facility] Patient Name: Ella Herrera Procedure Date: 04/16/2020 10:07 AM Date of : 1960 Admit Type: Outpatient Age: 59 Gender: Female Attending MD: Tony Peña M.D. Room: [facility] ENDOSCOPY ROOM 3 Note Status: Finalized [...] bowel preparation was evaluated using the BBPS ([place] Bowel Preparation Scale) with scores of: Right [...] On: 04/16/2020 10:07 AM Recognized by the [employer] for promoting quality in endoscopy Tony Peña MD ENDOSCOPY PROCEDURES Fin al Result from Last 3 Months or Most Recently Relevant to Health Maintenance Insurance MEDICARE [facility] ACCESS CHOICE [facility] CHOICE PLUS MEDICARE [facility] Advance Directives For more information, please contact: [phone] * Full Code (Latest Code Status on File) Date Activated Date Inactivated Comments 2020 11:25 AM 04/27/2020 5:00 AM * Full Code Date Activated Date Inactivated Comments 04/16/2020 9:42 AM 04/16/2020 3:34 PM * Full Code Date Activated Date Inactivated Comments 07/27/2018 2:25 AM 07/29/2018 9:03 PM Care Teams Dental Secretary Relationship Specialty Start Date End Date Shakeel Arora MD [address] [address] PCP - General Family Medicine 07/27/19 Avril Tobar MD Referring Physician Dermatology 03/03/19 Christiano Rosales MD [facility] [address] [place], [place] [id number] Medical Oncologist/Skylights Assembler Medical Oncology 03/03/19 Mari Lofton MD [address] [facility] [address] [place] [address] Medical Oncologist/Skylights Assembler Medical Oncology 07/02/20 Brian Rubi MD [address] [facility] [address] [place] [address] Consulting Physician Diagnostic Radiology 07/03/20
--- OUTSIDE RECORDS SUMMARY | 2024-12-01 11:41 | XMS_ITS | Encounter Summary ---
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 Gender Identity Not on file Sexual Orientation [...] on filedocumented in this encounter Care Teams Airworthiness Safety Inspector Relationship Specialty Start Date End Date Shakeel Arora MD [address] [address] PCP - General Family Medicine 07/27/19 Avril Tobar MD Referring Physician Dermatology 03/03/19 Christiano Rosales MD [address] [address] Medical Oncologist/Business Communications Instructor Medical Oncology 03/03/19 Mari Lofton MD [address] [employer] [address] Medical Oncologist/Business Communications Instructor Medical Oncology 07/02/20 Brian Rubi MD [address] [address] Consulting Physician Diagnostic Radiology 07/03/20 documented as of this encounter
--- OUTSIDE RECORDS SUMMARY | 2024-12-01 11:41 | XMS_ITS | Continuity of Care Document ---
Author Organization [facility] Address [address] [place] [address] utive [address] [place] [address] Phone Care Team Providers Care Bookkeeping Service Sales Agent Name Role Phone Sanchez OD, Jose Unavailable Unavailable Procedures Procedure Date Office/outpatient Visit, Est Remove Foreign Body From Eye Advance Directives Directive Yes / No Effective Date File Name No Information Encounters Encounter Description Practice Location Reason(s) For Visit Diagnoses Date Provider Providers Copied on Encounter Office/outpat ient Visit, Est [facility], [address] [place] [address] [address], [place], [place], [id number], tel:[phone] [facility] No Information Jul-0 4-201 0 Sanchez OD Jose. [address] , [address], [place], [place], [facility] [place], [place]. tel:[phone] [facility], [address] [place] [address] [address], [place], [place], [address], tel:[phone] [facility] No Information 7-201 0 Sanchez OD Jose. [address] , [address], [place], [address], [place]. tel:[phone] Family History Family Member Type Diagnosis Age At Onset No Information Payers Payer name Insurance type Covered alliance party ID Authorhirama rito(s) [facility] CI [id number] Social History Type Description Quantity Date Captured [...]
[2024-12-01 11:49] VITALS: BP 151/78; PULSE 89; RESP 15; TEMP 36.4; O2SAT 97
--- OUTSIDE RECORDS SUMMARY | 2024-12-01 12:12 | XMS_ITS | Clinical Summary ---
Author Organization [facility] Address [address] [place] [address] Care Team Providers Care Laboratory Mechanical Technician Name Role Phone Avril Tobar MD Unavailable [phone] Christiano Rosales MD Unavailable [phone] Shakeel Arora MD Primary Care Provider [phone] Mari Lofton MD Unavailable [phone] CyriacBrian MD Unavailable [phone] Allergies Active Allergy Reactions Criticality Noted Date [...] with simethicone-diph enhydramine-lido royce (MAGIC MOUTHWASH) suspension 3-6-7Pipnwjuozod :Chemotherapy-In duced Mucositis Swish and spit 15 [...] 04/14/2018 Assessment & Plan (04/14/2018 8:41 AM MERCHANDISING SPECIALIST): Warm compresses, Doxy 100mg BID PO for 1 week, Maxitrol lele at bedtime (QHS) both eyes (OU) for 1 week Warm compress 2-3 times a day 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 04/14/2018 Combined forms of age-related cataract of both e yes 04/14/2018 Assessment & Plan (04/14/2018 8:42 AM MERCHANDISING SPECIALIST): Asymptomatic, monitor Narrow angle glaucoma suspect of both eyes 04/14 Assessment & Plan (04/14/2018 8:43 AM MERCHANDISING SPECIALIST): Warned pt signs and Symptoms of angle closure Large CD both eyes (OU), borderline IOP Consult with Dr Champion 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 Nancy Avila, adjuvant radiation. Right augmentation mammoplasty Multifocal ca T1cN1 ER+, NM+, Her2 negative, lymphatic permeation; AC/Taxol, RT, Fareston 2011 R breast, T3N1, ER+,NM+,Her2 negative, MIB 7%,lymphovascular and perineural invasion Bilateral mastectomies Assessment & Plan (07/27/2018 4:20 AM CDT): Breast cancer diagnosed in 2000. T3N1, ER/NM+, Stage III. AC + Taxol x 4 cycles (total brittney dose 420mg). Disease recurrence in R breast in 2011. Right mastectomy, XRT, Abraxane x 3 cycles, Exemestane x 5 years [id number]. -No evidence of disease -Continue to monitor [...] involvement. Treatment History: 06/2011-07/2011 RM-CHOP x 2, NM by PET 09/28/2011 BEAM Autologous SCT, CR by PET 12/2011 Rituxan x 2 doses 09/08/2017 CT scan with cecal mass and ileocolic adenopathy 09/29/2017-04/27/18 ABT-199 + Ibrutinib x 6 on 04/27/18-07/11/18 Ibrutinib, NM, dc'd due to toxicities 07/13/18- Rituxan/Revlimid -Recent [...] Type Department Care Team Description 11/14/[address] [facility] On[facility] [address] [place] [address] [address] [place] [phone] Faisal Ho, [facility] 09/28/[address] [facility] Oncology [address] [place] [address] [address] 6 [place] [id number] Prudence Haskins, [facility] 09/27/[address] [facility] Oncology [address] [place] [address] [address] 6 [place] [id number] Nati Crespo RN 09/26/2024 3:00 PM CDT Infusion [facility] - Infusion [facility] Floor 5 [place] [address] Malignant neoplasm of right breast in female, estrogen receptor positive, unspecified site of breast (HCC) (Primary Dx); Malignant neoplasm metastatic to bone (HCC) 09/26/2024 2:00 PM CDT Office Visit 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 Oncology [address] [facility] Floor 8 [place] [address] Phyllis Greer RN from Last [...] on file Legal Sex Female 2:43 AM MERCHANDISING SPECIALIST Gender Identity Not on file Sexual [...] 162 cm (5' 3.78) 06/20/2024 7:41 AM MERCHANDISING SPECIALIST Body Mass Index 30.94 06/20/2024 7:41 AM MERCHANDISING SPECIALIST Plan of Treatment Health Maintenance Due [...] of breast (HCC) COLONOSCOPY 04/16/2020 10:07 AM MERCHANDISING SPECIALIST from Last 3 Months or Most [...] MD LAB BLOOD ORDERABLES Final R esult [facility] Department [place] [address] * (ABNORMAL) Differential, auto (09/26/2024 12:26 PM CDT) Neutrophil abs 1.11(L) 1.50 - 6.50 K/cumm Comment:Testing performed by : [facility], [address] [place] [address] Lymphocyte abs 0.83 0.80 - 3.30 K/cumm JENNIFER [facility] Comment:Testing performed by : [facility], [address] [place] [address] Monocyte abs 0.25 0.20 - 0.80 K/cumm JENNIFER CASSIDY Comment:Testing performed by : [facility], [address] [place] [address] Eosinophil abs 0.01 0.00 - 0.50 K/cumm JENNIFER CASSIDY Comment:Testing performed by : [facility], [address] [place] [address] Basophil abs 0.08 0.00 - 0.10 K/cumm JENNIFER [facility] Comment:Testing performed by : [facility], [address] [place] [phone] Neutrophil pct 48.8 % CERARCHANA CASSIDY Comment: Interpretive Data Percent cell count reference ranges are not reported, since discordance with absolute values may lead to misinterpretation of CBC data. Current Interpretive Data was last revised on 2017. Testing performed by: [facility], [address] [place] [phone] Lymphocyte pct 36.4 % CERARCHANA CASSIDY Comment: Interpretive Data Percent cell count reference ranges are not reported, since discordance with absolute values may lead to misinterpretation of CBC data. Current Interpretive Data was last revised on 2017. Testing performed by: [facility], [address] [place] [phone] Monocyte pct 10.9 % CERARCHANA CASSIDY Comment: Interpretive Data Percent cell count reference ranges are not reported, since discordance with absolute values may lead to misinterpretation of CBC data. Current Interpretive Data was last revised on 2017. Testing performed by: [facility], [address] [place] [phone] Eosinophil pct 0.6 % CERARCHANA CASSIDY Comment: Interpretive Data Percent cell count reference ranges are not reported, since discordance with absolute values may lead to misinterpretation of CBC data. Current Interpretive Data was last revised on 2017. Testing performed by: [facility], [address] [place] [phone] Basophil pct 3.3 % CERARCHANA CASSIDY Comment: Interpretive Data Percent cell count reference ranges are not reported, since discordance with absolute values may lead to misinterpretation of CBC data. Current Interpretive Data was last revised on 2017. Testing performed by: [facility], [address] [place] [phone] Blood 09/26/2024 12:2 6 PM CDT 09/26/2024 12:30 PM CDT Christiano Rosales MD LAB BLOOD ORDERABLES Final R esult JENNIFER CASSIDY [facility] Department [place] [address] * (ABNORMAL) CBC with auto differential (09/26/2024 12:26 PM CDT) WBC 2.27(L) 3.80 - 9.90 K/cumm Comment:Testing performed by : [facility], [address] [place] [address] Hgb 13.3 11.9 - 15.5 g/dL CERNER BJ Comment:Testing performed by : [facility], [address] [place] [address] Hct 38.6 35.6 - 45.5 % CERNER BJ Comment:Testing performed by : [facility], [address] [place] [address] Plt 193 150 - 400 K/cumm CERNER BJ Comment:Testing performed by : [facility], [address] [place] [address] MPV 7.3 6.8 - 10.4 fL CERNER BJ Comment:Testing performed by : [facility], [address] [place] [address] RBC 3.68(L) 3.90 - 5.20 M/cumm CERNER BJ Comment:Testing performed by : [facility], [address] [place] [address] MCV 104.9(H) 81.3 - 96.4 fL CERNER BJ Comment:Testing performed by : [facility], [address] [place] [address] MCH 36.1(H) 27.1 - 33.3 pg CERNER BJ Comment:Testing performed by : [facility], [address] [place] [address] MCHC 34.4 32.3 - 35.7 g/dL CERNER BJ Comment:Testing performed by : [facility], [address] [place] [address] RDW CV 14.1 11.1 - 14.9 % CERNER BJ Comment:Testing performed by : [facility], [address] [place] [phone] NRBC abs 0.00 0.00 - 0.01 K/cumm [facility] Comment:Testing performed by : [facility], [address] [place] [phone] Blood 09/26/2024 12:2 6 PM CDT 09/26/2024 12:30 PM CDT Christiano Rosales MD LAB BLOOD ORDERABLES Final R esult Performing Organization Address City/[facility]/ZIP Co de Phone Number [facility] [place] [address] * (ABNORMAL) Cancer antigen 15-3 (09/26/2024 12:26 PM CDT) CA 15-3 ag 39.0(H) <=25.0 units/mL Comment: Interpretive Data The Prabhakar CA 15-3 assay procedure was used. Results from different manufacturers or methods may not be comparable. Serial testing should be performed using the same method. Blood 09/26/2024 12:2 6 PM CDT 09/26/2024 12:56 PM CDT Nati Ocamop TREASURY MANAGEMENT SALES CONSULTANT LAB BLOOD ORDERABLES Final Result Performing Organization Address City/[facility]/ZIP Co de Phone Number [facility] Department [place] [address] * Vitamin D 25 hydroxy (09/26/2024 12:26 PM CDT) Vitamin D 25-OH 37 30 - 80 ng/mL Blood 09/26/2024 12:2 6 PM CDT 09/26/2024 12:35 PM CDT Nati Ocampo TREASURY MANAGEMENT SALES CONSULTANT LAB BLOOD ORDERABLES Final Result Performing Organization Address City/[facility] Co de Phone Number CERNER [facility] [place] [address] * Lactate dehydrogenase (LD) (09/26/2024 12:26 PM CDT) Pathologist [facility] Lactate dehydrogenase (LDH) 242 100 - 250 Units/L Blood 09/26/2024 12:2 6 PM CDT 09/26/2024 12:35 PM CDT Christiano Rosales MD LAB BLOOD ORDERABLES Final R esult Performing Organization Address [facility] [place] [address] * CEA (09/26/2024 12:26 PM CDT) [facility] CEA 2.0 <=5.0 ng/mL Comment: [...] BLOOD ORDERABLES Final Result Performing Organization Address [facility] Co de Phone Number JENNIFER [facility] [place] [address] * Beta 2 microglobulin, serum (09/26/2024 12:26 PM CDT) Pathologist [facility] Beta 2 Microglobulin, Serum 1.20 1.00 - 2.50 mg/L Comment: Interpretive Data The Prabhakar Beta-2 microglobulin assay procedure was used. Results from different manufacturers or methods may not be comparable. Serial testing should be performed using the same method. Blood 09/26/2024 12:2 6 PM CDT 09/26/2024 12:56 PM CDT us Christiano Rosales MD LAB BLOOD ORDERABLES Final R esult [facility] Department [place] [address] * Comprehensive metabolic panel (09/26/2024 12:26 PM CDT) [facility] Sodium 141 135 - 145 mmol/L Potassium, pl 3.7 3.3 - 4.9 mmol/L [facility] Chloride 103 97 - 110 mmol/L [facility] CO2 29 22 - 32 mmol/L [facility] Anion gap 9 2 - 15 mmol/L [facility] BUN 15 6 - 25 mg/dL [facility] Creatinine 0.98 0.60 - 1.10 mg/dL [facility] Glucose 106 70 - 199 mg/dL [facility] Comment: Interpretive Data Fasting [...] Bilirubin, total 0.4 0.1 - 1.2 mg/dL [facility] Protein, pl 7.6 6.5 - 8.5 g/dL [facility] Albumin 4.7 3.5 - 5.0 g/dL [facility] Alk phos 65 40 - 130 Units/L CERNER [facility] ALT 17 7 - 45 Units/L [facility] AST 22 10 - 45 Units/L [facility] Blood 09/26/2024 12:2 6 PM CDT 09/26/2024 12:35 PM CDT us Christiano Rosales MD LAB BLOOD ORDERABLES Final R esult JENNIFER [facility] Department [place] [address] * COLONOSCOPY (04/16/2020 10:07 AM MERCHANDISING SPECIALIST) Anatomical Region Laterality Modality Other Narrative Procedure Note Tony Peña MD - 04/16/2020 10:07 AM [facility] Patient Name: Ella Herrera Procedure Date: 04/16/2020 10:07 AM Date of : 1960 Admit Type: Outpatient Age: 59 Gender: Female Attending MD: Tony Peña M.D. Room: [facility] ENDOSCOPY ROOM 3 Note Status: Finalized Procedure: [...] bowel preparation was evaluated using the BBPS (Walnut Bowel Preparation Scale) with scores of: Right [...] On: 04/16/2020 10:07 AM Recognized by the [place] [employer] for promoting quality in endoscopy Tony Peña MD ENDOSCOPY PROCEDURES Fin al Result from Last 3 Months or Most Recently Relevant to Health Maintenance Insurance MEDICARE [facility] ACCESS CHOICE [facility] CHOICE [facility] H[facility]/PPO Address: [address] [address] [place] [address] MEDICARE [facility] Advance Directives For more information, please contact: [phone] * Full Code (Latest Code Status on File) Date Activated Date Inactivated Comments 2020 11:25 AM 04/27/2020 5:00 AM * Full Code Date Activated Date Inactivated Comments 04/16/2020 9:42 AM 04/16/2020 3:34 PM * Full Code Date Activated Date Inactivated Comments 07/27/2018 2:25 AM 07/29/2018 9:03 PM Care Teams Laboratory Mechanical Technician Relationship Specialty Start Date End Date Shakeel Arora MD [address] [address] PCP - General Family Medicine 07/27/19 Avril Tobar MD Referring Physician Dermatology 03/03/19 Christiano Rosales MD [address] [facility] [address] [place], [place] [id number] Medical Oncologist/Wound Care Physician Medical Oncology 03/03/19 Mari Lofton MD [address] [facility] [address] [place] [address] Medical Oncologist/Wound Care Physician Medical Oncology 07/02/20 Brian Rubi MD [address] [facility] [address] [place] [address] Consulting Physician Diagnostic Radiology 07/03/20
--- OUTSIDE RECORDS SUMMARY | 2024-12-01 12:12 | XMS_ITS | Encounter Summary ---
Author Organization [facility] Address [address] [place] [address] Phone Care Team Providers Care Vp Platforms Name Role Phone Avril Tobar MD Unavailable [phone] Christiano Rosales MD Unavailable Shakeel Arora MD Primary Care Provider [phone] Mari Lofton MD Unavailable [phone] Brian Rubi MD Unavailable [phone] Encounter Details Date Type Department Care Team [...] on file Legal Sex Female 2:43 AM MANAGER OF NETWORK Gender Identity Not on file Sexual Orientation [...] on filedocumented in this encounter Care Teams Vp Platforms Relationship Specialty Start Date End Date Shakeel Arora MD [address] [address] PCP - General Family Medicine 07/27/19 Avril Tobar MD Referring Physician Dermatology 03/03/19 Christiano Rosales MD [address] [address] Medical Oncologist/Gambling Cashier Medical Oncology 03/03/19 Mari Lofton MD [address] [address] Medical Oncologist/Gambling Cashier Medical Oncology 07/02/20 Brian Rubi MD [address] [address] Consulting Physician Diagnostic Radiology 07/03/20 documented as of this encounter
--- OUTSIDE RECORDS SUMMARY | 2024-12-01 12:12 | XMS_ITS | Encounter Summary ---
Author Organization [facility] Address [address] [place] [address] Phone Care Team Providers Care Canceling And Cutting Control Clerk Name Role Phone Shakeel Arora MD Primary Care Provider [phone] Christiano Rosales MD Primary Care Provider [phone] Shakeel Arora MD Primary Care Provider [phone] Christiano Rosales MD Primary Care Provider [phone] Shakeel Arora MD Primary Care Provider [phone] Christiano Rosales MD Primary Care Provider [phone] Shakeel Arora MD Primary Care Provider [phone] Christiano Rosales MD Primary Care Provider +[phone] Shakeel Arora MD Primary Care Provider [phone] Shakeel Arora MD Primary Care Provider [phone] Christiano Rosales MD Primary Care Provider +[phone] Shakeel Arora MD Primary Care Provider [phone] Christiano Rosales MD Primary Care Provider +[phone] Shakeel Arora MD Primary Care Provider [phone] Christiano Rosales MD Primary Care Provider +[phone] Christiano Rosales MD Primary Care Provider [phone] Shakeel Arora MD Primary Care Provider [phone] Christiano Rosales MD Primary Care Provider +06-09 [phone] Shakeel Arora MD Primary Care Provider [phone] Shakeel Arora MD Primary Care Provider [phone] Christiano Rosales MD Primary Care Provider +[phone] Shakeel Arora MD Primary Care Provider [phone] Christiano Rosales MD Primary Care Provider +[phone] Shakeel Arora MD Primary Care Provider [phone] Avril Tobar MD Unavailable [phone] Christiano Rosales MD Unavailable [phone] Shakeel Arora MD Primary Care Provider [phone] Mari Lofton MD Unavailable + [phone] CyriBrian mares MD Unavailable [phone] Encounter Details Date Type Department Care Team (Latest Contact Info) Description 02/06/2011 Orders Only [facility] Scanning, Provider Social History Tobacco Use Types Packs/Day Years Used Date Smoking Tobacco: Never Assessed Comments Unknown Sex and Gender Information Value Date Recorded Sex Assigned at Not on file Legal Sex Female 2:43 AM EMPLOYMENT PROGRAMS ANALYST Gender Identity Not on file Sexual Orientation [...] on filedocumented in this encounter Care Teams Canceling And Cutting Control Clerk Relationship Specialty Start Date End Date Shakeel Arora MD [address] [address] PCP - General 08/26/16 08/31/16 Christiano Rosales MD [address] [address] PCP - General 09/01/16 09/01/16 Shakeel Arora MD [address] [employer] [address] PCP - General 09/02/16 09/02/16 [place] [address] [place] [address] PCP - General 09/03/16 09/16/16 Shakeel Arora MD [facility] [address] [employer] [address] PCP - General 09/17/16 12/01/16 [place] [address] [place] [address] PCP - General 12/02/16 03/09/17 Shakeel Arora MD [address] [employer] [address] PCP - General 03/10/17 06/08/17 Christiano Rosales MD [address] [address] PCP - General 06/09/17 09/05/17 Shakeel Arora MD [address] [employer] [address] PCP - General 09/06/17 09/07/17 Shakeel Arora MD [address] [employer] [address] PCP - General 09/08/17 09/08/17 Christiano Rosales MD [address] [address] PCP - General 09/09/17 09/09/17 Shakeel Arora MD [address] [employer] [address] PCP - General 09/10/17 09/13/17 Christiano Rosales MD [address] [address] PCP - General 09/14/17 09/14/17 Shakeel Arora MD [address] [address] PCP - General 09/15/17 09/21/17 Christiano Rosales MD [address] [address] PCP - General 09/22/17 09/22/17 Christiano Rosales MD [address] [address] PCP - General 09/23/17 09/24/17 Shakeel Arora MD [address] [employer] [address] PCP - General 09/25/17 09/26/17 Christiano Rosales MD [address] [address] PCP - General 09/27/17 09/27/17 Shakeel Arora MD [address] [employer] [address] PCP - General 09/28/17 09/28/17 Shakeel Arora MD [address] [employer] [address] PCP - General 09/29/17 09/29/17 Christiano Rosales MD [address] [address] PCP - General 09/30/17 09/30/17 Shakeel Arora MD [address] [employer] [address] PCP - General 10/01/17 10/01/17 Christiano Rosales MD [address] [address] PCP - General 10/02/17 10/05/17 Shakeel Arora MD [address] [employer] [address] PCP - General 10/06/17 07/26/19 Shakeel Arora MD [address] [address] PCP - General Family Medicine 07/27/19 Avril Tobar MD [address] [address] Referring Physician Dermatology 03/03/19 Christiano Rosales MD [address] [address] Medical Oncologist/Soils Technician Medical Oncology 03/03/19 Mari Lofton MD [address] [address] Medical Oncologist/Soils Technician Medical Oncology 07/02/20 Brian Rubi MD [address] [address] Consulting Physician Diagnostic Radiology 07/03/20 documented as of this encounter
--- OUTSIDE RECORDS SUMMARY | 2024-12-01 12:12 | XMS_ITS | Referral Summary ---
Author Organization [facility] Address [address] [place] [address] Care Team Providers Care Bi Report Developer Name Role Phone Avril Tobar MD Unavailable [phone] Christiano Rosales MD Unavailable Shakeel Arora MD Primary Care Provider [phone] Mari Lofton MD Unavailable [phone] Brian Rubi MD Unavailable [phone] Encounters Date Type Department Care Team Description 11/14/2024 Telephone [facility] [address] [place] [address] Floor 8 [place] [phone] Faisal Ho, A 09/28/2024 Documentation [facility] [address] [place] [address] Floor 6 [place] [phone] Prudence Haskins, A 09/27/2024 Documentation [facility] [address] [place] [address] Floor 6 [place] [phone] Nati Crespo, DORIS 09/26/2024 Orders Only [facility] [address] [place] [address] Floor 8 [place] [phone] Phyllis Greer RN 09/26/2024 3:00 PM CDT Infusion [facility] - Infusion [address] [place] [address] Floor 5 [place] [address] Malignant neoplasm of right breast in female, estrogen receptor positive, unspecified site of breast (HCC) (Primary Dx); Malignant neoplasm metastatic to bone (HCC) 09/26/2024 1:00 PM CDT Lab [facility] - Lab Collection [address] [facility] Floor 5 [place] [address] Malignant neoplasm metastatic to bone (HCC); Malignant neoplasm of right breast in female, estrogen receptor positive, unspecified site of breast (HCC); 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) 09/26/2024 2:00 PM CDT Office Visit [facility] [address] [facility] Floor 8 [place] [address] Mari Lofton MD Malignant neoplasm of right [...] with simethicone-diph enhydramine-lido royce (MAGIC MOUTHWASH) suspension [id number] :Chemotherapy-In duced Mucositis Swish and spit 15 [...] 04/14/2018 Assessment & Plan (04/14/2018 8:41 AM FUNNEL SETTER): Warm compresses, Doxy 100mg BID PO for 1 week, Maxitrol lele at bedtime (QHS) both eyes (OU) for 1 week Warm compress 2-3 times a day 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 04/14/2018 Combined forms of age-related cataract of both e yes 04/14/2018 Assessment & Plan (04/14/2018 8:42 AM FUNNEL SETTER): Asymptomatic, monitor Narrow angle glaucoma suspect of both eyes 04/14 Assessment & Plan (04/14/2018 8:43 AM FUNNEL SETTER): Warned pt signs and Symptoms of angle closure Large CD both eyes (OU), borderline IOP Consult with Dr Bohrade 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 Nancy Avila, adjuvant radiation. Right augmentation mammoplasty Multifocal ca T1cN1 ER+, [place]+, Her2 negative, lymphatic permeation; AC/Taxol, RT, [place] 2011 R breast, T3N1, ER+,MO+,Her2 negative, MIB 7%,lymphovascular and perineural invasion Bilateral mastectomies Assessment & Plan (07/27/2018 4:20 AM CDT): Breast cancer diagnosed in 2000. T3N1, ER/MO+, Stage III. AC + Taxol x 4 cycles (total brittney dose 420mg). Disease recurrence in R breast in 2011. Right mastectomy, XRT, Abraxane x 3 cycles, Exemestane x 5 years 3001-7667. -No evidence of disease -Continue to monitor [...] involvement. Treatment History: 06/2011-07/2011 RM-CHOP x 2, [place] by PET 09/28/2011 BEAM Autologous SCT, CR by PET 12/2011 Rituxan x 2 doses 09/08/2017 CT scan with cecal mass and ileocolic adenopathy 09/29/2017-04/27/18 ABT-199 + Ibrutinib x 6 on 04/27/18-07/11/18 Ibrutinib, [place], dc'd due to toxicities 07/13/18- Rituxan/Revlimid -Recent [...] on file Legal Sex Female 2:43 AM FUNNEL SETTER Gender Identity Not on file Sexual Orientation [...] 162 cm (5' 3.78) 06/20/2024 7:41 AM FUNNEL SETTER Body Mass Index 30.94 06/20/2024 7:41 AM FUNNEL SETTER Plan of Treatment Not on file Procedures [...] of breast (HCC) COLONOSCOPY 04/16/2020 10:07 AM FUNNEL SETTER from Last 3 Months or Most Recently [...] ORDERABLES Final R esult JENNIFER CASSIDY [facility] Department [place] [address] * (ABNORMAL) Differential, auto (09/26/2024 12:26 PM CDT) Pathologist [facility] Neutrophil abs 1.11(L) 1.50 - 6.50 K/cumm Comment:Testing performed by : [facility], [address] [place] [phone] Lymphocyte abs 0.83 0.80 - 3.30 K/cumm JENNIFER CASSIDY Comment:Testing performed by : [facility], [address] [place] [phone] Monocyte abs 0.25 0.20 - 0.80 K/cumm JENNIFER CASSIDY Comment:Testing performed by : [facility], [address] [place] [phone] Eosinophil abs 0.01 0.00 - 0.50 K/cumm [facility] Comment:Testing performed by : [facility], [address] [place] [phone] Basophil abs 0.08 0.00 - 0.10 K/cumm [facility] Comment:Testing performed by : [facility], [address] [place] [phone] Neutrophil pct 48.8 % [facility] Comment: Interpretive Data Percent cell count reference ranges are not reported, since discordance with absolute values may lead to misinterpretation of CBC data. Current Interpretive Data was last revised on 2017. Testing performed by: [facility], [address] [place], [place] [id number] Lymphocyte pct 36.4 % [facility] Comment: Interpretive Data Percent cell count reference ranges are not reported, since discordance with absolute values may lead to misinterpretation of CBC data. Current Interpretive Data was last revised on 2017. Testing performed by: [facility], [address] [place] [phone] Monocyte pct 10.9 % [facility] Comment: Interpretive Data Percent cell count reference ranges are not reported, since discordance with absolute values may lead to misinterpretation of CBC data. Current Interpretive Data was last revised on 2017. Testing performed by: [facility], [address] [place] [phone] Eosinophil pct 0.6 % [facility] Comment: Interpretive Data Percent cell count reference ranges are not reported, since discordance with absolute values may lead to misinterpretation of CBC data. Current Interpretive Data was last revised on 2017. Testing performed by: [facility], [address] [place] [phone] Basophil pct 3.3 % [facility] Comment: Interpretive Data Percent cell count reference ranges are not reported, since discordance with absolute values may lead to misinterpretation of CBC data. Current Interpretive Data was last revised on 2017. Testing performed by: [facility], [address] [place] [phone] Blood 09/26/2024 12:2 6 PM CDT 09/26/2024 12:30 PM CDT Christiano Rosales MD LAB BLOOD ORDERABLES Final R esult JENNIFER CASSIDY [facility] Department [place] [address] * (ABNORMAL) CBC with auto differential (09/26/2024 12:26 PM CDT) WBC 2.27(L) 3.80 - 9.90 K/cumm Comment:Testing performed by : [facility], [address] [place] [address] Hgb 13.3 11.9 - 15.5 g/dL JENNIFER CASSIDY Comment:Testing performed by : [facility], [address] [place] [address] Hct 38.6 35.6 - 45.5 % JENNIFER CASSIDY Comment:Testing performed by : [facility], [address] [place] [address] Plt 193 150 - 400 K/cumm JENNIFER CASSIDY Comment:Testing performed by : [facility], [address] [place] [address] MPV 7.3 6.8 - 10.4 fL JENNIFER CASSIDY Comment:Testing performed by : [facility], [address] [place] [address] RBC 3.68(L) 3.90 - 5.20 M/cumm JENNIFER CASSIDY Comment:Testing performed by : [facility], [address] [place] [address] MCV 104.9(H) 81.3 - 96.4 fL [facility] Comment:Testing performed by : [facility], [address] [place] [address] MCH 36.1(H) 27.1 - 33.3 pg [facility] Comment:Testing performed by : [facility], [address] [place] [address] MCHC 34.4 32.3 - 35.7 g/dL [facility] Comment:Testing performed by : [facility], [address] [place] [address] RDW CV 14.1 11.1 - 14.9 % [facility] Comment:Testing performed by : [facility], [address] [place] [address] NRBC abs 0.00 0.00 - 0.01 K/cumm [facility] Comment:Testing performed by : [facility], [address] [place] [address] Blood 09/26/2024 12:2 6 PM CDT 09/26/2024 12:30 PM CDT Christiano Rosales MD LAB BLOOD ORDERABLES Final R esult Performing Organization Address City/[facility]/ZIP Co de Phone Number [facility] Department [place] [address] * (ABNORMAL) Cancer antigen 15-3 (09/26/2024 12:26 PM CDT) Pathologist [facility] CA 15-3 ag 39.0(H) <=25.0 units/mL Comment: Interpretive Data The Prabhakar CA 15-3 assay procedure was used. Results from different manufacturers or methods may not be comparable. Serial testing should be performed using the same method. Blood 09/26/2024 12:2 6 PM CDT 09/26/2024 12:56 PM CDT Nati Ocampo NEUROSURGICAL PHYSICIAN ASSISTANT LAB BLOOD ORDERABLES Final Result [facility] Department [place] [address] * Vitamin D 25 hydroxy (09/26/2024 12:26 PM CDT) Vitamin D 25-OH 37 30 - 80 ng/mL Blood 09/26/2024 12:2 6 PM CDT 09/26/2024 12:35 PM CDT Nati Ocampo NEUROSURGICAL PHYSICIAN ASSISTANT LAB BLOOD ORDERABLES Final Result Performing Organization Address [facility] de Phone Number JENNIFER [facility] Department [place] [address] * Lactate dehydrogenase (LD) (09/26/2024 12:26 PM CDT) Pathologist [facility] Lactate dehydrogenase (LDH) 242 100 - 250 Units/L Blood 09/26/2024 12:2 6 PM CDT 09/26/2024 12:35 PM CDT Christiano Rosales MD LAB BLOOD ORDERABLES Final R esult Performing Organization Address [facility] [place] [address] * CEA (09/26/2024 12:26 PM CDT) Pathologist [facility] CEA 2.0 <=5.0 ng/mL Comment: [...] BLOOD ORDERABLES Final Result Performing Organization Address [facility] de Phone Number [facility] [place] [address] * Beta 2 microglobulin, serum (09/26/2024 12:26 [...] MD LAB BLOOD ORDERABLES Final R esult [facility] Department [place] [address] * Comprehensive metabolic panel (09/26/2024 12:26 PM CDT) Sodium 141 135 - 145 mmol/L Potassium, pl 3.7 3.3 - 4.9 mmol/L [facility] Chloride 103 97 - 110 mmol/L [facility] CO2 29 22 - 32 mmol/L [facility] Anion gap 9 2 - 15 mmol/L [facility] BUN 15 6 - 25 mg/dL [facility] Creatinine 0.98 0.60 - 1.10 mg/dL [facility] Glucose 106 70 - 199 mg/dL [facility] Comment: Interpretive Data Fasting glucose [...] 2022. Calcium 9.6 8.5 - 10.3 mg/dL [facility] Bilirubin, total 0.4 0.1 - 1.2 mg/dL [facility] Protein, pl 7.6 6.5 - 8.5 g/dL [facility] Albumin 4.7 3.5 - 5.0 g/dL [facility] Alk phos 65 40 - 130 Units/L [facility] ALT 17 7 - 45 Units/L [facility] AST 22 10 - 45 Units/L [facility] Blood 09/26/2024 12:2 6 PM CDT 09/26/2024 12:35 PM CDT us Christiano Rosales MD LAB BLOOD ORDERABLES Final R esult [facility] Department [place] [address] * COLONOSCOPY (04/16/2020 10:07 AM FUNNEL SETTER) Anatomical Region Laterality Modality Other Narrative Procedure Note Tony Peña MD - 04/16/2020 10:07 AM CST [facility] Patient Name: Ella Herrera Procedure Date: 04/16/2020 10:07 AM Date of : 1960 Admit Type: Outpatient Age: 59 Gender: Female Attending MD: Tony Peña M.D. Room: [facility] ENDOSCOPY ROOM 3 Note Status: [...] bowel preparation was evaluated using the BBPS ([place] Bowel Preparation Scale) with scores of: Right [...] On: 04/16/2020 10:07 AM Recognized by the [employer] [employer] for promoting quality in endoscopy Tony Peña MD ENDOSCOPY PROCEDURES Fin al Result from Last 3 Months or Most Recently Relevant to Health Maintenance Insurance MEDICARE [facility] ACCESS CHOICE [facility] CHOICE PLUS [facility] HMO/PPO Address: [address] [address] [place] [address] MEDICARE [employer] [facility] Advance Directives For more information, please contact: [phone] * Full Code (Latest Code Status on File) Date Activated Date Inactivated Comments 2020 11:25 AM 04/27/2020 5:00 AM * Full Code Date Activated Date Inactivated Comments 04/16/2020 9:42 AM 04/16/2020 3:34 PM * Full Code Date Activated Date Inactivated Comments 07/27/2018 2:25 AM 07/29/2018 9:03 PM Care Teams Bi Report Developer Relationship Specialty Start Date End Date Shakeel Arora MD [address] [address] PCP - General Family Medicine 07/27/19 Avril Tobar MD Referring Physician Dermatology 03/03/19 Christiano Rosales MD [facility] [address] [place], [place] [id number] Medical Oncologist/Manufacturing Worker Medical Oncology 03/03/19 Mari Lofton MD [address] [facility] [address] [place] [address] Medical Oncologist/Manufacturing Worker Medical Oncology 07/02/20 Brian Rubi MD [address] [facility] [address] [place] [address] Consulting Physician Diagnostic Radiology 07/03/20
--- OUTSIDE RECORDS SUMMARY | 2024-12-01 12:12 | XMS_ITS | Clinical Summary ---
Author Organization [facility] [place] Address [address] [place] [address] Phone Care Team Providers Care Aviation Metalsmith Name Role Phone Shakeel Arora MD Primary Care Provider [phone] Allergies Active Allergy Reactions Criticality Noted Date [...] Provider: Glenis Lara MD [address] [place] [address] Other: Problem Noted Date Diagnosed Date Mass [...] Right augmentation mammoplasty Multifocal ca T1cN1 ER+, PA+, Her2 negative, lymphatic permeation; AC/Taxol, RT, [facility] 2011 R breast, T3N1, ER+,PA+,Her2 negative, MIB 7%,lymphovascular and perineural invasion Bilateral [...] on file Legal Sex Female 5:41 AM QUALITY TECH Gender Identity Not on file Sexual Orientation Not on file Occupation Industry Job Start Date Job End Date Not on file Not on file Not on file Not on file Not on file Not on file Not on file Not on file Last Filed Vital Signs Vital Sign Reading Time Taken Comments Blood Pressure 120/77 03/31/2017 8:02 AM QUALITY TECH Pulse 82 03/31/2017 8:02 AM QUALITY TECH Temperature 36.9 C (98.4 F) 03/31/2017 8:02 AM QUALITY TECH Respiratory Rate 15 03/31/2017 8:02 AM QUALITY TECH Oxygen Saturation 91% 05/05/2012 6:50 AM QUALITY TECH Inhaled Oxygen Concentration - - Weight 73.3 kg (161 lb 8 oz) 03/31/2017 8:02 AM QUALITY TECH Height 162.6 cm (5' 4) 03/31/2017 8:02 AM QUALITY TECH Body Mass Index 27.72 03/31/2017 8:02 AM QUALITY TECH Plan of Treatment Health Maintenance Due Date [...] series) 2034 Medical Devices Implanted Type Area Sound Person Device Identifier Shelf Expiration Date Model / Serial / Lot Port Pwrprt Slim Chrnflx Cath 6fr [id number] - [id number] Implanted:Qty : 1 on 04/08/2012 by Olga Cano MD at [facility] Port Left: Subclavian CR BARD- ACCESS SYS 01/06/2014 [id number] / [id number] / [id number] Procedures Procedure Name Priority Date/Time Associated Diagnosis [...] Advance Directives For more information, please contact: [phone] * Full Code (Latest Code Status on File) Date Activated Date Inactivated Comments 05/01/2012 4:30 PM 05/05/2012 3:14 PM * Full Code Date Activated Date Inactivated Comments 04/08/2012 9:32 AM 04/08/2012 1:42 PM * Full Code Date Activated Date Inactivated Comments 04/08/2012 8:49 AM 04/08/2012 9:32 AM Care Teams Aviation Metalsmith Relationship Specialty Start Date End Date Shakeel Arora MD [address] [place] [phone] PCP - General 06/03/08
--- OUTSIDE RECORDS SUMMARY | 2024-12-01 12:12 | XMS_ITS | Clinical Summary ---
Author Organization [facility] Address [facility] [place] [address] Care Team Providers Care Cooking Appliance Repair Technician Name Role Phone Unavailable Primary Care Provider [...]
--- OUTSIDE RECORDS SUMMARY | 2024-12-01 12:12 | XMS_ITS | Encounter Summary ---
Author Organization [facility] [employer] [facility] Address [address] [place] [address] Phone Care Team Providers Care Cosmetic Chemist Name Role Phone Avril Tobar MD Unavailable [phone] Christiano Rosales MD Unavailable [phone] Shakeel Arora MD Primary Care Provider [phone] Mari Lofton MD Unavailable [phone] Brian Rubi MD Unavailable [phone] Encounter Details Date Type Department Care Team (Late st Contact Info) Description 01/04/2024 Social Work [facility] [address] [facility] 7th [place] [address] [place] [id number] Sonia Rothman LCSW Social History Tobacco Use Types Packs/Day Years Used Date Smoking Tobacco: Never Passive Smoke Exposure: Never Smokeless Tobacco: Never Alcohol Use Standard Drinks/Week Comments Not Currently 0 (1 standard drink = 0.6 oz pur e alcohol) social Comments No Sex and Gender Information Value Date Recorded Sex Assigned at Not on file Legal Sex Female 2:43 AM SOFT WATER MECHANIC Gender Identity Not on file Sexual Orientation Not on file documented as of this encounter Plan of Treatment Not on file documented as of this encounter Visit Diagnoses Not on filedocumented in this encounter Care Teams Cosmetic Chemist Relationship Specialty Start Date End Date Shakeel Arora MD [address] [address] PCP - General Family Medicine 07/27/19 Avril Tobar MD Referring Physician Dermatology 03/03/19 Christiano Rosales MD [address] [address] Medical Oncologist/Labview Programmer Medical Oncology 03/03/19 Mari Lofton MD [address] [address] Medical Oncologist/Labview Programmer Medical Oncology 07/02/20 Brian Rubi MD [address] [address] Consulting Physician Diagnostic Radiology 07/03/20 documented as of this encounter
--- OUTSIDE RECORDS SUMMARY | 2024-12-01 12:12 | XMS_ITS | Continuity of Care Document ---
Author Organization [facility] Address [address] [place] [address] [address] [place] [address] Phone Care Team Providers Care Customer Operations Representative Name Role Phone Sanchez OD, Jose Unavailable Unavailable Procedures Procedure Date Office/outpatient Visit, Est Remove Foreign Body From Eye Advance Directives Directive Yes / No Effective Date File Name No Information Encounters Encounter Description Practice Location Reason(s) For Visit Diagnoses Date Provider Providers Copied on Encounter Office/outpat ient Visit, Est [facility], [address] [place] [address] [address], [place], [place], [id number], tel:[phone] [facility] No Information Jul-0 4-201 0 Sanchez OD Jose. [address] , [address], [place], [place], [facility], [place]. tel:[phone] [facility], [address] [place] [address] [address], [place], [place], [id number], tel:[phone] [facility] No Information 7-201 0 Sanchez OD Jose. [address] , [address], [place], [address], [place]. tel:[phone] Family History Family Member Type Diagnosis Age At Onset No Information Payers Payer name Insurance type Covered libertarian ID Authorhirama rito(s) [facility] CI [id number] Social History Type Description Quantity Date Captured [...]
--- OUTSIDE RECORDS SUMMARY | 2024-12-01 12:12 | XMS_ITS ---
Author Organization [facility] Address [address] [place] [address] Care Team Providers Care Kettleman Name Role Phone Avril Tobar MD Unavailable [phone] Christiano Rosales MD Unavailable [phone] Shakeel Arora MD Primary Care Provider [phone] Mari Lofton MD Unavailable [phone] CyriBrian mares MD Unavailable [phone] Active Problems Problem Noted Date Diagnosed Date [...] 04/14/2018 Assessment & Plan (04/14/2018 8:41 AM ELECTRONIC WARFARE SPECIALIST): Warm compresses, Doxy 100mg BID PO for 1 week, Maxitrol lele at bedtime (QHS) both eyes (OU) for 1 week Warm compress 2-3 times a day 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 04/14/2018 Combined forms of age-related cataract of both e yes 04/14/2018 Assessment & Plan (04/14/2018 8:42 AM ELECTRONIC WARFARE SPECIALIST): Asymptomatic, monitor Narrow angle glaucoma suspect of both eyes 04/14 Assessment & Plan (04/14/2018 8:43 AM ELECTRONIC WARFARE SPECIALIST): Warned pt signs and Symptoms of [...] [place]+, Her2 negative, lymphatic permeation; AC/Taxol, RT, [place] 2011 R breast, T3N1, ER+,OH+,Her2 negative, MIB 7%,lymphovascular and perineural invasion Bilateral mastectomies Assessment & Plan (07/27/2018 4:20 AM CDT): Breast cancer diagnosed in 2000. T3N1, ER/OH+, Stage III. AC + Taxol x 4 cycles (total brittney dose 420mg). Disease recurrence in R breast in 2011. Right mastectomy, XRT, Abraxane x 3 cycles, Exemestane x 5 years 2817-8350. -No evidence of disease -Continue to monitor [...] involvement. Treatment History: 06/2011-07/2011 RM-CHOP x 2, [place] by PET 09/28/2011 BEAM Autologous SCT, CR by PET 12/2011 Rituxan x 2 doses 09/08/2017 CT scan with cecal mass and ileocolic adenopathy 09/29/2017-04/27/18 ABT-199 + Ibrutinib x 6 on 04/27/18-07/11/18 Ibrutinib, [place], dc'd due to toxicities 07/13/18- Rituxan/Revlimid -Recent [...] basilic Port removed in clinic 04/21/[address] [facility] Lovenox 60 BID Adenocarcinoma of cecum 06/10/2011 [...] Rosales MD 1 of 6 cycles started [id number] - [facility] - Lymphoma - Arm E - Ibrutinib / ABT-199 (ABT [id number] ) 8 04/27/2018 ibrutinib (IMBRUVICA)INV -[facility] ABT-199 (venetoclax) (/A [id number]) Therapy Complete Christiano Rosales MD 5 (6 [...]
--- NOTE | 2024-12-01 12:13 | ED_ITS ---
HPI - General Adult General Chief complaint: Extremity Injury, Lower Stated complaint: R leg swelling Time Seen by Provider: 12/01/24 11:49 History of Present Illness HPI narrative: 64-year-old female present to the emergency department for evaluation for right lower extremity swelling. Patient does have a history of a metatarsal fracture and was being followed by Orthopedics. Patient did have some previous lower extremity swelling and was diagnosed with the DVT. Patient has been Xarelto for the last 2 weeks. Patient states that she just came back from vacation where she was and hot weather and unable to elevate her foot. Patient states she does have some worsening right lower extremity swelling. Patient denies any associated chest pain or shortness of breath. Patient states she does have some shoulder discomfort that has been intermittent. Patient does have history of metastatic breast cancer but is on medications for this. Patient does have prior history of DVT. Related Data Home Medications ?Medication ?Instructions ?Recorded ?Confirmed ?Last Taken ?Type letrozole 2.5 mg tablet 2.5 mg PO DAILY 07/18/20 11/21/24 Unknown History loratadine 10 mg tablet (Claritin) 10 mg PO DAILY 07/18/20 11/21/24 Unknown History palbociclib 75 mg capsule (Ibrance) 75 mg PO DAILY 11/06/21 11/21/24 Unknown History multivitamin 1 tablet PO DAILY 06/30/23 11/21/24 Unknown History Allergies Allergy/AdvReac Type Severity Reaction Status Date / Time cefdinir Allergy Unknown Unknown Verified 11/21/24 14:57 moxifloxacin Allergy Unknown Unknown Verified 11/21/24 14:57 Review of Systems 2 Review of Systems: All systems reviewed & are unremarkable except as noted in HPI and below FORMERLY [facility], [facility] Past Medical History Medical History (Updated 12/01/24 @ 14:26 by Juan Francisco Crawford MD) Deep vein thrombosis (DVT) of right lower extremity (~11/13/24) DVT right femoral and popliteal veins on ultrasound 11/13/2024. persistent DVT right popliteal vein 12/01/2024. Motion sickness Plantar wart of left foot 2 areas of wart left plantar area of the heel Nail fungus right foot 2nd toe with thickened mycotic nail Seborrhea Pharyngitis Mixed hyperlipidemia (~07/13/23) cholesterol 203, triglycerides 135, HDL 69 with LDL slightly elevated at 107 on 07/13/2023 through oncologist. Sinusitis, acute Acute bronchitis BMI 32.0-32.9,adult Vertigo Candidiasis of mouth Obesity (BMI 30.0-34.9) Otitis externa Muscle cramps Right shoulder pain BMI 31.0-31.9,adult UTI (urinary tract infection) Breast cancer metastasized to bone BMI 31.0-31.9,adult Erythema nodosum Inflammation of eyelid, left COVID-19 virus IgG antibody detected Colon cancer screening Acute non-recurrent maxillary sinusitis Family History Family History Mother Hypertension, Onset Age: 85 Father Hypertension, Onset Age: 87 Social History Social History Smoking status: Never smoker Alcohol intake: current Substance use: never Substance use type: does not use Lack of Transportation: No Lack of Food: Sometimes True Current Housing: I Have Housing Concerned About Future Housing: No Difficulty Paying Gas/Electric Bills: No Difficulty Paying for Meds: No Currently Unemployed: No Education: High School Diploma/GED Difficulty w/ Childcare or Family Care: No Gender identity (if verbalized by the patient): Female Exam 2 Narrative: APPEARANCE: Well appearing, no pain, no distress, well-nourished. HEAD: normocephalic, atraumatic. EYES: PERRLA/EOMI, conjunctivae clear. NOSE: Normal no drainage EARS:TMS clear with good light reflex. THROAT: Pharynx clear, no exudate. NECK: Supple. No adenopathy, no masses. RESPIRATORY: Airway patent, respirations nonlabored. Clear to auscultation bilaterally, no rales, rhonchi, wheezing. CARDIOVASCULAR: Regular rate and rhythm without murmurs rubs or gallops. ABDOMINAL: Soft, nontender, nondistended, normal bowel sounds MUSCULOSKELETAL: Moves all extremities. Strength/ROM intact, No edema, No calf tenderness. NEURO: Alert. Cranial nerves II through XII intact. Good gait. Good coordination SKIN: Warm, dry. Normal Color PSYCHIATRIC: Normal affect/mood. Course Vital Signs Vital signs: Vital Signs Temperature 97.6 F 12/01/24 11:49 Pulse Rate 89 12/01/24 11:49 Respiratory Rate 15 12/01/24 11:49 Blood Pressure 151/78 H 12/01/24 11:49 Pulse Oximetry 97 12/01/24 11:49 Oxygen Delivery Room Air 12/01/24 11:49 Temperature 97.6 F 12/01/24 11:49 Pulse Rate 89 12/01/24 11:49 Respiratory Rate 15 12/01/24 11:49 Blood Pressure 151/78 H 12/01/24 11:49 Pulse Oximetry 97 12/01/24 11:49 Oxygen Delivery Room Air 12/01/24 11:49 Medical Decision Making MDM Narrative Medical decision making narrative: 64-year-old female present to the emergency department for evaluation for right lower extremity swelling. Patient does have a known DVT and has been taking her Xarelto. Patient denies any worsening leg pain denies any associated chest pain or shortness of breath. Patient is currently afebrile with no leukocytosis hemoglobin 11.8 which is similar to her baseline. INR is 2.1. Patient has no acute abnormalities on her CMP chest x-ray shows no acute cardiopulmonary abnormality ultrasound was negative for worsening DVT but does show the persistent popliteal DVT. EKG shows normal sinus rhythm with no evidence of acute STEMI. Concern for pulmonary embolism. Patient was updated the results of her workup patient was comfortable plan for discharge and close follow-up. Differential Diagnosis Differential Diagnosis: Pulmonary embolism, pneumonia, ACS, cellulitis, worsening DVT, edema, heart failure Vital Signs Vital Signs: Vital Signs Temperature 97.6 F 12/01/24 11:49 Pulse Rate 89 12/01/24 11:49 Respiratory Rate 15 12/01/24 11:49 Blood Pressure 151/78 H 12/01/24 11:49 Pulse Oximetry 97 12/01/24 11:49 Oxygen Delivery Room Air 12/01/24 11:49 Temperature 97.6 F 12/01/24 11:49 Pulse Rate 89 12/01/24 11:49 Respiratory Rate 15 12/01/24 11:49 Blood Pressure 151/78 H 12/01/24 11:49 Pulse Oximetry 97 12/01/24 11:49 Oxygen Delivery Room Air 12/01/24 11:49 Lab Data Lab results reviewed: Yes I reviewed the patient's lab results. 12/01/24 12:18 12/01/24 12:18 Labs: Lab Results 12/01/24 Range/Units 12:18 WBC 3.5 L (4.5-10.0) K/mm3 RBC 3.31 L (4.2-5.4) M/mm3 Hgb 11.8 L (12.0-15.0) g/dL Hct 35.3 L (37.0-47.0) % MCV 106.6 H (80-100) fl MCH 35.6 H (26-34) pg MCHC 33.4 (32-36) g/dl RDW 13.4 (11.5-14.5) % Plt Count 213 (150-375) k/mm3 MPV 8.9 (7.4-10.4) fl Immature Gran % (Auto) 0.0 (0-0.5) % Neut % (Auto) 49.3 (45.5-73.1) % Lymph % (Auto) 30.7 (18.3-44.2) % [place] % (Auto) 15.1 H (2.6-8.5) % Eos % (Auto) 3.5 (0-4.4) % Baso % (Auto) 1.4 H (0.2-1.2) % Lymph # (Auto) 1.06 (0.9-3.2) K/mm3 [place] # (Auto) 0.5 (0.1-0.6) K/mm3 Eos # (Auto) 0.1 (0-0.3) K/mm3 Baso # (Auto) 0.1 (0.0-0.1) K/mm3 Abs Immat Gran (auto) 0.00 (0.00-0.031) K/mm3 Absolute Neuts (auto) 1.7 (1.3-6.7) K/mm3 Absolute Nucleated RBC 0.000 (0.0-0.012) K/mm3 Band Neutrophils % Not Reportable Nucleated RBC % 0.0 (0.0-0.2) % Platelet Estimate Adequate (Adequate) Macrocytosis 2+ (NORMAL) Ovalocytes 1+ Schistocytes None seen PT 23.2 H (11.1-14.7) Seconds INR 2.1 APTT 39.4 H (22.3-36.8) Seconds Sodium 143 (137-145) mmol/L Potassium 3.5 (3.4-5.0) mmol/L Chloride 105 (98-107) mmol/L Carbon Dioxide 30 (22-30) mmol/L Anion Gap 8 (4-12) mmol/L BUN 15 (7-17) mg/dL Creatinine 0.90 (0.7-1.0) mg/dL Estim Creat Clear Calc 55 ml/min Estimated GFR > 60 (59 - ) Glucose 103 (65-110) mg/dL Calcium 9.2 (8.4-10.2) mg/dL Total Bilirubin 0.3 (0.2-1.3) mg/dL AST 24 (14-36) U/L ALT 15 (6-35) U/L Alkaline Phosphatase 65 (38-126) U/L Total Protein 7.0 (6.3-8.2) g/dL Albumin 4.0 (3.5-5.1) g/dL Imaging Data Radiologist's impression: Impressions Venous Doppler Study 12/01/24 13:04 IMPRESSION: 1: Persistent deep venous thrombosis right popliteal vein. Chest X-Ray 12/01/24 15:04 IMPRESSION: 1. No acute cardiopulmonary disease. 2. At least mild osteoarthritis at the bilateral glenohumeral joints with subarticular cystlike change at the glenoids. ECG Data EKG #1: EKG Interpretation: normal rate, sinus rhythm, no ectopy, non-specific ST changes, no ST changes, normal QRS, normal QT and NL axis Discharge Plan Discharge Clinical Impression: Right leg swelling, Deep vein thrombosis (DVT) of right lower extremity Patient Disposition: Home Condition: Stable Instructions: Antibiotic Form, Deep Vein Thrombosis (DC), Leg Edema (ED) Additional Instructions: Continue to take your Xarelto as directed. Elevate the leg when possible. Have close follow-up with your primary care physician. If you have any worsening symptoms then please call or return to the emergency department. Patient Language: Surinamese Prescriptions: No Action Ibrance 75 mg capsule 75 mg PO DAILY Rx Instructions: per oncology multivitamin Tablet 1 tablet PO DAILY fluticasone propionate [Flonase Allergy Relief] 50 mcg/actuation spray,suspension 1 spray intranasal BID Qty: 16 11RF Rx Instructions: administer into each nostril benzonatate 200 mg capsule 200 mg PO TID PRN (Reason: cough) Qty: 30 0RF mometasone 0.1 % cream 1 applic topical DAILY PRN (Reason: rash) 14 Days Qty: 15 2RF loratadine [Claritin] 10 mg tablet 10 mg PO DAILY letrozole 2.5 mg tablet 2.5 mg PO DAILY ibuprofen 800 mg tablet 800 mg PO TID PRN (Reason: pain) Qty: 30 0RF oxycodone 5 mg tablet 5 mg PO Q8H PRN (Reason: pain) Qty: 10 0RF diazepam 2 mg tablet 2 mg PO BID PRN (Reason: vertigo) Qty: 10 0RF tobramycin 0.3 % drops See Rx Instructions ophthalmic (eye) Q4H Qty: 5 1RF Rx Instructions: 1 drop in affected eye every 4 hours for 7 day meclizine 25 mg tablet 25 mg PO TID PRN (Reason: dizziness) Qty: 90 0RF amoxicillin-pot clavulanate 875-125 mg tablet 1 tablet PO Q12H Qty: 20 0RF scopolamine base 1 mg over 3 days patch 3 day 1 patch transdermal Q3D PRN (Reason: motion sickness) Qty: 4 1RF Rx Instructions: hold meclizine while on the scopolamine zolpidem 10 mg tablet 10 mg PO . q.h.s. PRN (Reason: insomnia) Qty: 30 5RF acetaminophen [Tylenol Extra Strength] 500 mg tablet 1,000 mg PO TID PRN (Reason: pain) Qty: 30 0RF Xarelto DVT-PE Treat 30d Start 15 mg (42)- 20 mg (9) tablets,dose pack See Rx Instructions PO .COMPLEX Qty: 51 0RF Rx Instructions: take one-15 mg tablet twice daily for 21 days, then one-20 mg tablet once daily; must take with meal/food PO Follow-up/Referrals: Shakeel Arora MD [Primary Care Provider] -
[2024-12-01 12:32] LABS: Hematocrit 35.3 % (37.0-47.0); Hemoglobin 11.8 g/dL (12.0-15.0); Immature Granulocyte Percent A 0.0 % (0-0.5); Lymphocytes Absolute Auto 1.06 K/mm3 (0.9-3.2); Mean Corpuscular HGB Conc 33.4 g/dl (32-36); Mean Corpuscular Hemoglobin 35.6 pg (26-34); Mean Corpuscular Volume 106.6 fl (80-100); Nucleated Red Blood Cells Absolute Auto 0.000 K/mm3 (0.0-0.012); Nucleated Red Blood Cells Perc 0.0 % (0.0-0.2); Platelet Count Result 213 k/mm3 (150-375); Red Blood Count 3.31 M/mm3 (4.2-5.4); White Blood Count 3.5 K/mm3 (4.5-10.0)
[2024-12-01 12:46] LABS: INR 2.1; Prothrombin Time 23.2 Seconds (11.1-14.7)
[2024-12-01 12:47] LABS: Partial Thromboplastin Time 39.4 Seconds (22.3-36.8)
[2024-12-01 12:52] LABS: Alanine Aminotransferase 15 U/L (6-35); Albumin Level 4.0 g/dL (3.5-5.1); Alkaline Phosphatase 65 U/L (38-126); Anion Gap 8 mmol/L (4-12); Aspartate Amino Transferase 24 U/L (14-36); Bilirubin,Total 0.3 mg/dL (0.2-1.3); Blood Urea Nitrogen 15 mg/dL (7-17); Calcium 9.2 mg/dL (8.4-10.2); Carbon Dioxide 30 mmol/L (22-30); Chloride 105 mmol/L (98-107); Estimated CRCL calculation 55 ml/min; Estimated Glomerular Filt Rate > 60; Glucose 103 mg/dL (65-110); Potassium 3.5 mmol/L (3.4-5.0); Sodium 143 mmol/L (137-145); Total Protein 7.0 g/dL (6.3-8.2)
[2024-12-01 13:08] LABS: Macrocytosis 2+ (NORMAL); Ovalocytes 1+
[2024-12-01 13:09] LABS: Schistocytes None Seen
--- NOTE | 2024-12-01 14:00 | ECG_ITS ---
Test Date: 2024-12-01 14:07:31 Measurements Intervals [place] Rate: 72 P: 8 AR: 128 QRS: 16 QRSD: 93 T: 15 QT: 392 QTc: 430 Interpretive Statements SINUS RHYTHM No previous ECG available for comparison Electronically Signed On 12-02-2024 18:40:28 CDT by Marbin Ward M.D.
== END 2024-12-01 14:48 | disposition home or self-care (01) ==
PROVIDERS: Emergency Provider Emergency Medicine; PCP Family Medicine
DX: I82.431 Acute embolism and thrombosis of right popliteal vein (principal); C50.919 Malignant neoplasm of unspecified site of unspecified female breast; C79.51 Secondary malignant neoplasm of bone; E78.2 Mixed hyperlipidemia; E66.9 Obesity, unspecified; Z68.29 Body mass index [BMI] 29.0-29.9, adult; Z87.440 Personal history of urinary (tract) infections; M19.012 Primary osteoarthritis, left shoulder; M19.011 Primary osteoarthritis, right shoulder; Z79.01 Long term (current) use of anticoagulants; Z79.899 Other long term (current) drug therapy
CPT/HCPCS: 36415; 71045; 80053; 85025; 85610; 85730; 93005; 93971; 99284

== ENCOUNTER 2025-02-16 14:46 | Emergency (ER) | payer MEDICARE, OTHER, SELFPAY ==
[2025-02-16] VITALS (11 sets, daily range): BP systolic 125–139; BP diastolic 60–86; PULSE 88–110; RESP 12–18; TEMP 37.1; O2SAT 97–100
--- NOTE | ~2025-02-16 | XR_ITS ---
EXAMINATION: XR knee RT 3V, 02/16/2025 15:35 CDT HISTORY: Pain and swelling COMPARISON: No comparisons available. Findings: No acute fracture or malalignment. No significant degenerative changes. Soft tissues unremarkable. Impression: No acute fracture or malalignment. Reviewed, dictated and finalized at location P. Impression: No acute fracture or malalignment.
--- NOTE | ~2025-02-16 | XR_ITS ---
EXAMINATION: XR humerus RT, 02/16/2025 15:35 CDT HISTORY: Bone pain with hx of metastatic CA COMPARISON: No comparisons available. Findings: No fracture identified, no lytic or sclerotic lesions No significant degenerative changes. Soft tissues unremarkable. Impression: No acute fracture or malalignment. Reviewed, dictated and finalized at location P. Impression: No acute fracture or malalignment.
--- NOTE | ~2025-02-16 | XR_ITS ---
EXAMINATION: XR humerus LT, 02/16/2025 15:35 CDT HISTORY: Bone pain with hx of metastatic CA COMPARISON: No comparisons available. Findings: No fracture identified, no lytic or sclerotic lesions No significant degenerative changes. Soft tissues unremarkable. Impression: No acute fracture or malalignment. Reviewed, dictated and finalized at location P. Impression: No acute fracture or malalignment.
--- NOTE | ~2025-02-16 | XR_ITS ---
[id number] Indication: Bone pain in neck w/hx of metastatic disease Comparison: None Findings: Grade 1 anterolisthesis of C3 on C4 and C4 on C5, no fracture or lytic lesions identified. Severe loss of disc height C5-6 and C6-7. Soft tissues unremarkable Impression: 1. No evidence of metastatic disease Reviewed, dictated and finalized at location P. Impression: 1. No evidence of metastatic disease
--- NOTE | ~2025-02-16 | XR_ITS ---
Clinical history:Weakness EXAM:X-ray chest one view TECHNIQUE:A single frontal image of the chest was obtained. Comparisons:None available at this time FINDINGS: Heart is borderline enlarged. No pneumothorax. No pleural effusion. No free air in the diaphragm. Small opacities in lower lungs. IMPRESSION: 1. Small opacities in the mid and lower lungs which represents atelectasis/scarring or infiltrates. If symptoms persist or worsen, consider a short-term follow-up study or additional imaging for further assessment. Reviewed, dictated and finalized at location Q. IMPRESSION: 1. Small opacities in the mid and lower lungs which represents atelectasis/scar ring or infiltrates. If symptoms persist or worsen, consider a short-term follow-up study or additio nal imaging for further assessment.
--- NOTE | 2025-02-16 14:52 | ECG_ITS ---
Test Date: 2025-02-16 15:13:26 Measurements Intervals [place] Rate: 106 P: 50 AL: 136 QRS: 36 QRSD: 85 T: 48 QT: 342 QTc: 456 Interpretive Statements SINUS TACHYCARDIA POSSIBLE LEFT ATRIAL ENLARGEMENT BORDERLINE ST ABNORMALITY- ANTEROLAT/INF LEADS BASELINE ARTIFACT- III, AVL BORDERLINE ECG Compared to ECG 12/01/2024 14:07:31 HEART RATE HAS INCREASED Electronically Signed On 02-16-2025 15:32:56 CDT by Jose Adam D.O.
--- NOTE | 2025-02-16 15:13 | ED_ITS ---
HPI - Weakness General Chief complaint: Weakness Stated complaint: generalized weakness Time Seen by Provider: 02/16/25 14:51 Source: patient Mode of arrival: ambulatory Limitations: no limitations History of Present Illness HPI Narrative: This is a very pleasant 64-year-old female patient with past medical history significant of DVT, now chronically anticoagulated with Xarelto, hyperlipidemia, a breast cancer with metastasis to the bone on immunotherapy as well as targeted therapy with Palbociclib and Letrozole, who comes to the emergency room with complaints of having approximately 1 week of generalized weakness and body aches in the bilateral upper extremities and neck as well as swelling in the by me without acute injury or trauma and low-grade fevers of 99.0. Patient denies any recent injuries, falls, traumas or inciting events. She has not been able to identify anything that makes her symptoms better or worse. However, patient does believe that her symptoms may likely be due to your regimen medication she took for her cancer back in 2012, as she states she has had these symptoms, go intermittently over the course of the past 10-12 years. Patient denies any known ill contacts recent travel denies any recent cough, congestion. Related Data Home Medications ?Medication ?Instructions ?Recorded ?Confirmed ?Last Taken ?Type letrozole 2.5 mg tablet 2.5 mg PO DAILY 07/18/20 Unknown History palbociclib 75 mg capsule (Ibrance) 75 mg PO DAILY 02/06/25 Unknown History multivitamin 1 tablet PO DAILY 06/30/23 0 02/06/25 Unknown History zoledronic acid 4 mg/100 mL in 4 mg IV . every 6 month s 02/06/25 02/06/25 Unknown History mannitol 5 %-water intravenous piggybck Allergies Allergy/AdvReac Type Severity Reaction Status Date / Time cefdinir Allergy Unknown Unknown Verified 02/16/25 15:18 moxifloxacin Allergy Unknown Unknown Verified 02/16/25 15:18 Review of Systems 2 Review of Systems: All systems reviewed & are unremarkable except as noted in HPI and below PMFSH Past Medical History Medical History Candidiasis of mouth Inflammation of eyelid, left Sinusitis, acute Pharyngitis Otitis externa At low risk for fall BMI 29.0-29.9,adult Deep vein thrombosis (DVT) of right lower extremity (~11/13/24) DVT right femoral and popliteal veins on ultrasound 11/13/2024. persistent DVT right popliteal vein 12/01/2024. Motion sickness Plantar wart of left foot 2 areas of wart left plantar area of the heel Nail fungus right foot 2nd toe with thickened mycotic nail Seborrhea Mixed hyperlipidemia (~07/13/23) cholesterol 203, triglycerides 135, HDL 69 with LDL slightly elevated at 107 on 07/13/2023 through oncologist. Acute bronchitis BMI 32.0-32.9,adult Vertigo Obesity (BMI 30.0-34.9) Muscle cramps Right shoulder pain BMI 31.0-31.9,adult UTI (urinary tract infection) Breast cancer metastasized to bone BMI 31.0-31.9,adult Erythema nodosum COVID-19 virus IgG antibody detected Colon cancer screening Acute non-recurrent maxillary sinusitis Family History Family History Mother Hypertension, Onset Age: 85 Father Hypertension, Onset Age: 87 Social History Social History Smoking status: Never smoker Alcohol intake: current Substance use: never Substance use type: does not use Lack of Transportation: No Lack of Food: Sometimes True Current Housing: I Have Housing Concerned About Future Housing: No Difficulty Paying Gas/Electric Bills: No Difficulty Paying for Meds: No Currently Unemployed: No Education: High School Diploma/GED Difficulty w/ Childcare or Family Care: No Gender identity (if verbalized by the patient): Female Exam 2 Const: General: healthy appearing, no acute distress and alert; No diaphoretic or ill appearing Nutritional Appearance: well nourished O rientation/consciousness: patient oriented x3 Limitations: no limitations HENMT: Head: normal to inspection Mouth: Yes Normal oral and palatal mucosa present, Yes lip normal and Yes moist mucous membranes Throat: posterior oropharynx normal Eyes: Conjunctivae: conjunctivae normal Pupils: Equal, round and reactive pupils present Neck: Neck: normal visual inspection Chest: Chest palpation & inspection: normal inspection of the chest Resp: Effort & Inspection: normal respiratory effort Auscultation: clear to auscultation bilaterally Cardio: Rate: tachycardic Rhythm: regular rhythm Heart sounds: no murmurs GI: GI Palp: Yes Soft to palpation, No Tenderness to palpation present (GI), No Guarding due to palpation present (GI) and No Hernia present Auscultation: normal bowel sounds Back/Spine/Pelvis: Back: no CVA tenderness Skin: General skin exam: normal color Rashes: no rashes Wounds: no wounds Neuro: General: patient oriented x3, moves all extremities and no focal motor deficits Speech: normal speech Extrem: General: clubbing, cyanosis or edema noted and edema (Right knee with edema and mild effusion. No erythema, redness, or warmth.) Other: Bilateral upper extremities without any swelling or edema, redness, warmth or obvious abnormalities. Psych: Mental Status: mental status grossly normal Affect: normal affect Course Course Emergency Course: General workup with labs, imaging EKG is ordered. Patient with leukopenia thrombocytopenia, however I do believe this is chronic as patient does take immuno modulating treatment and trend also shows previous thrombocytopenia leukopenia. Remainder of labs unremarkable with exception of TSH that is 12.6. T4 is marginally low at 1.0. Patient's chest x-ray showing atelectasis/scarring versus infiltrate. Patient is not meeting sepsis criteria, where as she is asymptomatic of any acute infiltrate in the lungs, however given her results and the fact that she is on immune modulating therapy she will be started on antibiotics. All of her symptoms can be explained by her TSH being ordered today as she is subclinical hypothyroidism however exhibiting all of the symptoms she will be started on a very low dose of levothyroxine and referred back to her primary care for following. X-rays performed of the bilateral arms, knee and cervical spine are all without evidence of metastatic disease and without any acute bony abnormalities. These findings were discussed with the patient and her spouse as well as her son at the bedside, all questions were answered to their satisfaction and she is stable for discharge home at this time to follow up with primary care provider. Vital Signs Vital signs: Vital Signs Temperature 98.8 F 02/16/25 15:00 Pulse Rate 110 H 02/16/25 15:00 Respiratory Rate 18 02/16/25 15:00 Blood Pressure 139/74 02/16/25 15:00 Pulse Oximetry 98 02/16/25 15:00 Oxygen Delivery Room Air 02/16/25 15:00 Temperature 98.8 F 02/16/25 15:00 Pulse Rate 88 02/16/25 17:00 Respiratory Rate 12 02/16/25 17:00 Blood Pressure 132/76 02/16/25 17:00 Pulse Oximetry 100 02/16/25 17:00 Oxygen Delivery Room Air 02/16/25 15:00 MDM - Weakness MDM Narrative Medical decision making narrative: See ED course Lab Data 02/16/25 15:22 02/16/25 15:22 Labs: Lab Results 02/16/25 Range/Units 15:22 WBC 2.4 L (4.5-10.0) K/mm3 RBC 3.68 L (4.2-5.4) M/mm3 Hgb 13.0 (12.0-15.0) g/dL Hct 38.1 (37.0-47.0) % MCV 103.5 H (80-100) fl MCH 35.3 H (26-34) pg MCHC 34.1 (32-36) g/dl RDW 13.1 (11.5-14.5) % Plt Count 140 L (150-375) k/mm3 MPV 9.2 (7.4-10.4) fl Immature Gran % (Auto) 0.4 (0-0.5) % Neut % (Auto) 57.8 (45.5-73.1) % Lymph % (Auto) 29.7 (18.3-44.2) % [place] % (Auto) 9.6 H (2.6-8.5) % Eos % (Auto) 0.8 (0-4.4) % Baso % (Auto) 1.7 H (0.2-1.2) % Lymph # (Auto) 0.71 L (0.9-3.2) K/mm3 [place] # (Auto) 0.2 (0.1-0.6) K/mm3 Eos # (Auto) 0.0 (0-0.3) K/mm3 Baso # (Auto) 0.0 (0.0-0.1) K/mm3 Abs Immat Gran (auto) 0.01 (0.00-0.031) K/mm3 Absolute Neuts (auto) 1.4 (1.3-6.7) K/mm3 Absolute Nucleated RBC 0.000 (0.0-0.012) K/mm3 Nucleated RBC % 0.0 (0.0-0.2) % APTT 22.4 (22.3-36.8) Seconds Sodium 135 L (137-145) mmol/L Potassium 3.4 (3.4-5.0) mmol/L Chloride 97 L (98-107) mmol/L Carbon Dioxide 30 (22-30) mmol/L Anion Gap 8 (4-12) mmol/L BUN 15 (7-17) mg/dL Creatinine 0.87 (0.7-1.0) mg/dL Estim Creat Clear Calc 56 ml/min Estimated GFR > 60 (59 - ) Glucose 111 H (65-110) mg/dL Calcium 9.7 (8.4-10.2) mg/dL Magnesium 1.7 (1.6-2.3) mg/dL Total Bilirubin 0.4 (0.2-1.3) mg/dL AST 32 (14-36) U/L ALT 23 (6-35) U/L Alkaline Phosphatase 87 (38-126) U/L Troponin I < 0.012 (0.000-0.034) ng/mL Total Protein 7.9 (6.3-8.2) g/dL Albumin 4.3 (3.5-5.1) g/dL TSH (Reflex) 12.600 H (0.465-4.68) uIU/mL Free T4 1.04 (0.78-2.19) ng/dL Total T3 Pending Urine Color Yellow (Yellow) Urine Appearance Clear (Clear) Urine pH 5.5 (5.0-9.0) Ur Specific [place] 1.018 (1.001-1.035) Urine Protein Trace (Negative) mg/dL Urine Glucose (UA) Negative (Negative) mg/dL Urine Ketones 1+ H (Negative) mg/dL Ur Blood (Man) 1+ H (Negative) Urine Nitrate Negative (Negative) Urine Bilirubin Negative (Negative) Urine Urobilinogen 0.2 (<2.0) mg/dL Leukocyte Esterase Rfl Negative (Negative) RICHARD/UL Urine RBC 0-2 (0-2) /hpf Urine WBC 0-5 (0-3) /hpf Ur Squamous Epith Cells None seen (Few) /hpf Urine Bacteria None seen /hpf Urine Casts 3-5 Influenza A (RT-PCR) Negative (Negative) Influenza B (RT-PCR) Negative (Negative) RSV (RT-PCR) Negative (Negative) SARS-CoV-2 RNA (RT-PCR) Negative (Negative) ECG Data EKG #1: Interpretation: EKG showing sinus tachycardia at 106 beats per minute with [address] depression in leads 2, 3, AVF. When compared with most recent EKG dated 11/11/[address] depression or other ischemic changes at that time. Discharge Plan Discharge Clinical Impression: Subclinical hypothyroidism, Abnormal chest x-ray Patient Disposition: Home Condition: Stable Instructions: Antibiotic Form, General Patient Instructions, Hypothyroidism (ED) Additional Instructions: Thank you for allowing us to evaluate and manage in the emergency room today. All of your labs and imaging show no acute spread of metastatic disease. Chest x-ray shows atelectasis which is collapse of small areas in the bases of the lungs versus infiltrates which would be considered infection, however the remaining after labs and physical exam do not demonstrate an acute infection. Due to your immuno suppressed status you are going to be given an antibiotic. Please take it as ordered to completion. In addition your thyroid function is noted to be low and your symptoms that you are experiencing may very well be explained by your low thyroid function. It is very important that you take this medication about an hour before eating breakfast again to not take it with any grapefruit or citrus containing juices or foods. Understand that you will not feel any different after initiating the medication as you are being started on a very low dose and it will take likely multiple titration is to get to the level you need. Please make a follow-up appointment as soon as possible with her primary care provider. She if at any point you have any new or worsening symptoms do not hesitate to return to the emergency room so that we may re- evaluate you. Patient Language: [place] Island[place] Prescriptions: New azithromycin [Zithromax Z-Erickson] 250 mg tablet See Rx Instructions .ROUTE .COMPLEX Qty: 6 0RF Rx Instructions: For 250 mg dose pack: take 500 mg today (day 1), then 250 mg for 4 days (days 2-5) levothyroxine 25 mcg capsule 25 mcg PO DAILY Qty: 30 0RF No Action Ibrance 75 mg capsule 75 mg PO DAILY Rx Instructions: per oncology multivitamin Tablet 1 tablet PO DAILY fluticasone propionate [Flonase Allergy Relief] 50 mcg/actuation spray,suspension 1 spray intranasal BID Qty: 16 11RF Rx Instructions: administer into each nostril mometasone 0.1 % cream 1 applic topical DAILY PRN (Reason: rash) 14 Days Qty: 15 2RF letrozole 2.5 mg tablet 2.5 mg PO DAILY nitrofurantoin macrocrystal 50 mg capsule 50 mg PO QHS PRN (Reason: dysuria) Qty: 30 5RF Rx Instructions: must administer with a meal/food zoledronic [id number] 4 mg/100 mL piggyback 4 mg IV . every 6 months Patient Comments: prescribed by oncologist Rx Instructions: administer over at least 15 mins meclizine 25 mg tablet 25 mg PO TID PRN (Reason: dizziness) Qty: 90 0RF scopolamine base 1 mg over 3 days patch 3 day 1 patch transdermal Q3D PRN (Reason: motion sickness) Qty: 4 1RF Rx Instructions: hold meclizine while on the scopolamine zolpidem 10 mg tablet 10 mg PO . q.h.s. PRN (Reason: insomnia) Qty: 30 5RF acetaminophen [Tylenol Extra Strength] 500 mg tablet 1,000 mg PO TID PRN (Reason: pain) Qty: 30 0RF Xarelto 20 mg tablet 20 mg PO DAILY Qty: 30 1RF Rx Instructions: must administer with evening meal Follow-up/Referrals: Shakeel Arora MD [Primary Care Provider, Family Practice] Time of Disposition: 17:35
[2025-02-16 15:30] LABS: Hematocrit 38.1 % (37.0-47.0); Hemoglobin 13.0 g/dL (12.0-15.0); Immature Granulocyte Percent A 0.4 % (0-0.5); Lymphocytes Absolute Auto 0.71 K/mm3 (0.9-3.2); Mean Corpuscular HGB Conc 34.1 g/dl (32-36); Mean Corpuscular Hemoglobin 35.3 pg (26-34); Mean Corpuscular Volume 103.5 fl (80-100); Nucleated Red Blood Cells Absolute Auto 0.000 K/mm3 (0.0-0.012); Nucleated Red Blood Cells Perc 0.0 % (0.0-0.2); Platelet Count Result 140 k/mm3 (150-375); Red Blood Count 3.68 M/mm3 (4.2-5.4); White Blood Count 2.4 K/mm3 (4.5-10.0)
[2025-02-16 15:36] LABS: Add Urine Microscopic? YES; Appearance Urine Clear (Clear); Glucose Urine UA Negative (Negative); Leukocyte Esterase Ur Negative LEU/UL (Negative); Nitrate Urine Negative (Negative); Specific Grav Ur 1.018 (1.001-1.035)
[2025-02-16 15:42] LABS: Alanine Aminotransferase 23 U/L (6-35); Albumin Level 4.3 g/dL (3.5-5.1); Alkaline Phosphatase 87 U/L (38-126); Anion Gap 8 mmol/L (4-12); Aspartate Amino Transferase 32 U/L (14-36); Bilirubin,Total 0.4 mg/dL (0.2-1.3); Blood Urea Nitrogen 15 mg/dL (7-17); Calcium 9.7 mg/dL (8.4-10.2); Carbon Dioxide 30 mmol/L (22-30); Chloride 97 mmol/L (98-107); Estimated CRCL calculation 56 ml/min; Estimated Glomerular Filt Rate > 60; Glucose 111 mg/dL (65-110); Magnesium 1.7 mg/dL (1.6-2.3); Potassium 3.4 mmol/L (3.4-5.0); Sodium 135 mmol/L (137-145); Total Protein 7.9 g/dL (6.3-8.2)
[2025-02-16 15:48] LABS: Partial Thromboplastin Time 22.4 Seconds (22.3-36.8)
[2025-02-16 15:53] LABS: Troponin I < 0.012 ng/mL (0.000-0.034)
[2025-02-16] MEDS: MORPHINE SULFATE (*CRX) 4 MG/ML INJ 2 MG IV PUSH (15:58)
[2025-02-16] MEDS: SODIUM CHLORIDE 0.9% IV 1,000 ML 999 ML IV CONT (16:02)
[2025-02-16 16:07] LABS: Influenza A QL RT-PCR Negative (Negative); Influenza B QL RT-PCR Negative (Negative); RSV RNA, RT-PCR Negative (Negative); SARS-CoV-2 RNA PCR Negative (Negative)
[2025-02-16 16:13] LABS: Thyroid Stimulating Hormone Reflex 12.600 uIU/mL (0.465-4.68)
[2025-02-16 17:07] LABS: Free T4 Free Thyroxine Reflex 1.04 ng/dL (0.78-2.19)
[2025-02-16 18:21] LABS: Total Triiodothyronine (T3) 1.27 NG/ML (0.82-1.58)
== END 2025-02-16 18:23 | disposition home or self-care (01) ==
PROVIDERS: Emergency Provider Nurse Practitioner Adult Health; PCP Family Medicine
DX: E03.8 Other specified hypothyroidism (principal); R91.8 Other nonspecific abnormal finding of lung field; Z20.822 Contact with and (suspected) exposure to COVID-19; C50.919 Malignant neoplasm of unspecified site of unspecified female breast; C79.51 Secondary malignant neoplasm of bone; E78.2 Mixed hyperlipidemia; Z86.718 Personal history of other venous thrombosis and embolism; Z87.440 Personal history of urinary (tract) infections; Z86.16 Personal history of COVID-19; Z79.01 Long term (current) use of anticoagulants; Z79.811 Long term (current) use of aromatase inhibitors; Z79.899 Other long term (current) drug therapy; R94.31 Abnormal electrocardiogram [ECG] [EKG]; R00.0 Tachycardia, unspecified
CPT/HCPCS: 36415; 71045; 72040; 73060; 73562; 80053; 81001; 83735; 84439; 84443; 84480; 84484; 85025; 85730; 87637; 93005; 96361; 96374; 99284; J2270; J7030